=== PATIENT | female | born 1990 | race Caucasian/White ===

== ENCOUNTER 2024-01-09 15:03 | Emergency (ER) | payer OTHER ==
--- NOTE | 2024-01-09 15:16 | ED ---
General Adult HPI - General Chief complaint: Psychiatric Symptoms Stated complaint: Mental Health Time Seen by Provider: 01/09/24 15:08 Source: patient, EMS, RN notes reviewed Mode of arrival: EMS Limitations: no limitations - History of Present Illness Initial comments: Patient is a pleasant 33-year-old female present to the emergency department with depression and suicidal thoughts. Patient was trying to wean off Zyprexa over the past 2 weeks. Patient has become more depressed. Patient has had suicidal thoughts with plan. No homicidal thoughts. No hallucinations. No new physical complaints. No alcohol or street drug use. Patient has not been eating or drinking well. Patient does not sleep as well as normal. - Related Data Home Medications Medication Instructions Recorded Confirmed Levonorgestrel-Ethinyl Estradiol 1 tab PO DAILY 01/09/24 01/09/24 (Sronyx) 0.1-20mg-Mcg Tabs Omeprazole 20 mg PO DAILY 01/09/24 01/09/24 Allergies Allergy/AdvReac Type Severity Reaction Status Date / Time No Known Allergies Allergy Verified 01/09/24 20:51 Review of Systems ROS Statement: Those systems with pertinent positive or pertinent negative responses have been documented in the HPI. ROS Other: All systems not noted in ROS Statement are negative. Constitutional: Denies: fever Eyes: Denies: eye pain ENT: Denies: ear pain Respiratory: Denies: cough, dyspnea Psychiatric: Reports: as per HPI, depression, suicidal thoughts Past Medical History Past Medical History: No Reported History History of Any Multi-Drug Resistant Organisms: None Reported Past Surgical History: No Surgical Hx Reported Past Psychological History: Anxiety, Depression Smoking Status: Current every day smoker Past Alcohol Use History: Rare Past Drug Use History: Marijuana General Exam Limitations: no limitations General appearance: alert, in no apparent distress, other (Tearful) Head exam: Present: normocephalic Eye exam: Present: normal appearance Neck exam: Present: normal inspection Respiratory exam: Present: normal lung sounds bilaterally Cardiovascular Exam: Present: regular rate, normal rhythm GI/Abdominal exam: Present: soft. Absent: tenderness Extremities exam: Present: normal inspection Neurological exam: Present: alert Psychiatric exam: Present: depressed Skin exam: Present: normal color Course Vital Signs 01/09/24 01/09/24 01/10/24 15:05 21:23 01:03 Temperature 98.2 F 98.1 F 98.1 F Pulse Rate 78 79 76 Respiratory 17 16 17 Rate Blood Pressure 111/73 123/73 117/70 O2 Sat by Pulse 99 99 99 Oximetry Medical Decision Making - Medical Decision Making Was pt. sent in by a medical professional or institution (, CADE, BATCH TANK CONTROLLER, urgent care, hospital, or [facility]...) When possible be specific @ -No Did you speak to anyone other than the patient for history (EMS, parent, family, police, friend...)? What history was obtained from this source @ -No Did you review nursing and triage notes (agree or disagree)? Why? @ -I reviewed and agree with nursing and triage notes Were old charts reviewed (outside hosp., previous admission, EMS record, old EKG, old radiological studies, urgent care reports/EKG's, [facility] records)? Report findings @ -No old charts were reviewed Differential Diagnosis (chest pain, altered mental status, abdominal pain women, abdominal pain men, vaginal bleeding, weakness, fever, dyspnea, syncope, headache, dizziness, GI bleed, back pain, seizure, CVA, palpatations, mental health, musculoskeletal)? @ -Differential Mental Health Depression, anxiety, bipolar, psychosis, schizophrenia, borderline personality, situational depression, adjustment disorder, behavioral disorder, brain tumor, malingering, substance abuse, encephalopathy, medication reaction, dementia, hypothyroidism, degenerative neurologic disorder, lupus.... This is not meant to be all-inclusive list EKG interpreted by me (3pts min.). @ -As above X-rays interpreted by me (1pt min.). @ -None done CT interpreted by me (1pt min.). @ -None done U/S interpreted by me (1pt. min.). @ -None done What testing was considered but not performed or refused? (CT, X-rays, U/S, labs)? Why? @ -None What meds were considered but not given or refused? Why? @ -None Did you discuss the management of the patient with other professionals (clifford guzmán i.e. CADE Guillen, BATCH TANK CONTROLLER, lab, RT, psych nurse, social staff worker, armored car guard, teacher, alumni relations officer, case consultant)? Give summary @ -Psychiatric nurse who evaluated the patient and set up transfer Was smoking cessation discussed for >3mins.? @ -No Was critical care preformed (if so, how long)? @ -No Were there social determinants of health that impacted care today? How? (Homelessness, low income, unemployed, alcoholism, drug addiction, transportation, low edu. Level, literacy, decrease access to med. care, care home, rehab)? @ -No Was there de-escalation of care discussed even if they declined (Discuss DNR or withdrawal of care, Hospice)? DNR status @ -No What co-morbidities impacted this encounter? (DM, HTN, Smoking, COPD, CAD, Cancer, CVA, ARF, Chemo, Hep., AIDS, mental health diagnosis, sleep apnea, morbid obesity)? @ -None Was patient admitted / discharged? Hospital course, mention meds given and route, prescriptions, significant lab abnormalities, going to OR and other pertinent info. @ -Patient seen by mental health services who transferred patient for mental health care Undiagnosed new problem with uncertain prognosis? @ -No Drug Therapy requiring intensive monitoring for toxicity (Heparin, Nitro, Insulin, Cardizem)? @ -No Were any procedures done? @ -No Diagnosis/symptom? @ -Depression Acute, or Chronic, or Acute on Chronic? @ -Acute Uncomplicated (without systemic symptoms) or Complicated (systemic symptoms)? @ -Default Side effects of treatment? @ -No Exacerbation, Progression, or Severe Exacerbation? @ -No Poses a threat to life or bodily function? How? (Chest pain, USA, MS, pneumonia, PE, COPD, DKA, ARF, appy, cholecystitis, CVA, Diverticulitis, Homicidal, S uicidal, threat to staff... and all critical care pts) @ -No - Lab Data Result diagrams: 01/09/24 18:21 01/09/24 18:21 Lab Results 01/09/24 01/09/24 01/09/24 Range/Units 17:44 17:52 17:52 WBC (3.8-10.6) k/uL RBC (3.80-5.40) m/uL Hgb (11.4-16.0) gm/dL Hct (34.0-46.0) % MCV (80.0-100.0) fL MCH (25.0-35.0) pg MCHC (31.0-37.0) g/dL RDW (11.5-15.5) % Plt Count (150-450) k/uL MPV Sodium (137-145) mmol/L Potassium (3.5-5.1) mmol/L Chloride (98-107) mmol/L Carbon Dioxide (22-30) mmol/L Anion Gap mmol/L BUN (7-17) mg/dL Creatinine (0.52-1.04) mg/dL Est GFR (CKD-EPI)AfAm (>60 ml/min/1.73 sqM) Est GFR (CKD-EPI)NonAf (>60 ml/min/1.73 sqM) Glucose (74-99) mg/dL Calcium (8.4-10.2) mg/dL Total Bilirubin (0.2-1.3) mg/dL AST (14-36) U/L ALT (4-34) U/L Alkaline Phosphatase (38-126) U/L Total Protein (6.3-8.2) g/dL Albumin (3.5-5.0) g/dL Urine Color Yellow Urine Appearance Clear (Clear) Urine pH 7.0 (5.0-8.0) Ur Specific Deville 1.018 (1.001-1.035) Urine Protein Negative (Negative) Urine Glucose (UA) Negative (Negative) Urine Ketones Negative (Negative) Urine Blood Negative (Negative) Urine Nitrite Negative (Negative) Urine Bilirubin Negative (Negative) Urine Urobilinogen <2.0 (<2.0) mg/dL Ur Leukocyte Esterase Negative (Negative) Urine HCG, Qual Not Detected (Not Detectd) Urine Opiates Screen Not Detected (NotDetected) Ur Oxycodone Screen Not Detected (NotDetected) Urine Methadone Screen Not Detected (NotDetected) Ur Barbiturates Screen Not Detected (NotDetected) U Tricyclic Antidepress Not Detected (NotDetected) Ur Phencyclidine Scrn Not Detected (NotDetected) Ur Amphetamines Screen Not Detected (NotDetected) U Methamphetamines Scrn Not Detected (NotDetected) U Benzodiazepines Scrn Not Detected (NotDetected) Urine Cocaine Screen Not Detected (NotDetected) U Marijuana (THC) Screen Detected H (NotDetected) SARS-CoV-2 (PCR) (Not Detectd) 01/09/24 01/09/24 01/09/24 Range/Units 18:21 18:21 18:23 WBC 12.5 H (3.8-10.6) k/uL RBC 4.49 (3.80-5.40) m/uL Hgb 13.9 (11.4-16.0) gm/dL Hct 41.7 (34.0-46.0) % MCV 92.9 (80.0-100.0) fL MCH 30.8 (25.0-35.0) pg MCHC 33.2 (31.0-37.0) g/dL RDW 12.6 (11.5-15.5) % Plt Count 211 (150-450) k/uL MPV 8.0 Sodium 143 (137-145) mmol/L Potassium 3.4 L (3.5-5.1) mmol/L Chloride 113 H (98-107) mmol/L Carbon Dioxide 24 (22-30) mmol/L Anion Gap 6 mmol/L BUN 13 (7-17) mg/dL Creatinine 0.59 (0.52-1.04) mg/dL Est GFR (CKD-EPI)AfAm >90 (>60 ml/min/1.73 sqM) Est GFR (CKD-EPI)NonAf >90 (>60 ml/min/1.73 sqM) Glucose 113 H (74-99) mg/dL Calcium 9.2 (8.4-10.2) mg/dL Total Bilirubin 0.3 (0.2-1.3) mg/dL AST 25 (14-36) U/L ALT 20 (4-34) U/L Alkaline Phosphatase 59 (38-126) U/L Total Protein 6.9 (6.3-8.2) g/dL Albumin 4.1 (3.5-5.0) g/dL Urine Color Urine Appearance (Clear) Urine pH (5.0-8.0) Ur Specific Deville (1.001-1.035) Urine Protein (Negative) Urine Glucose (UA) (Negative) Urine Ketones (Negative) Urine Blood (Negative) Urine Nitrite (Negative) Urine Bilirubin (Negative) Urine Urobilinogen (<2.0) mg/dL Ur Leukocyte Esterase (Negative) Urine HCG, Qual (Not Detectd) Urine Opiates Screen (NotDetected) Ur Oxycodone Screen (NotDetected) Urine Methadone Screen (NotDetected) Ur Barbiturates Screen (NotDetected) U Tricyclic Antidepress (NotDetected) Ur Phencyclidine Scrn (NotDetected) Ur Amphetamines Screen (NotDetected) U Methamphetamines Scrn (NotDetected) U Benzodiazepines Scrn (NotDetected) Urine Cocaine Screen (NotDetected) U Marijuana (THC) Screen (NotDetected) SARS-CoV-2 (PCR) Not Detected (Not Detectd) Disposition Clinical Impression: Depression Disposition: TRANSFER TO PSYCH HOSP/UNIT Is patient prescribed a controlled substance at d/c from ED?: No Referrals: León Drummond MD [Primary Care Provider] - 1-2 days
[2024-01-09] MEDS: LORazepam 1 MG TAB PO STA ×2 (17:51→23:09)
[2024-01-09 18:24] LABS: Appearance,Urine Clear (Clear); Bilirubin,Urine Negative (Negative); Blood,Urine Negative (Negative); Color,Urine Yellow; Glucose,Urine (UA) Negative (Negative); Ketones,Urine Negative (Negative); Leukocyte Esterase,Urine Negative (Negative); Nitrite,Urine Negative (Negative); Protein,Urine Negative (Negative); Specific Gravity,Urine 1.018 (1.001-1.035); Urobilinogen,Urine <2.0 mg/dL (<2.0)
[2024-01-09 18:33] LABS: HCT 41.7 % (34.0-46.0); HGB 13.9 gm/dL (11.4-16.0); MCH 30.8 pg (25.0-35.0); MCHC 33.2 g/dL (31.0-37.0); MCV 92.9 fL (80.0-100.0); Platelet Count 211 k/uL (150-450); RBC 4.49 m/uL (3.80-5.40); RDW 12.6 % (11.5-15.5); WBC 12.5 k/uL (3.8-10.6)
[2024-01-09 18:33] LABS: Amphetamine Screen,Urine Not Detected (NotDetected); Barbiturate Screen,Urine Not Detected (NotDetected); Benzodiazepines Screen,Urine Not Detected (NotDetected); Cocaine Screen,Urine Not Detected (NotDetected); Methadone Screen, Urine Not Detected (NotDetected); Opiate Screen,Urine Not Detected (NotDetected); Oxycodone Screen, Urine Not Detected (NotDetected); Phencyclidine Screen,Urine Not Detected (NotDetected); Tricyclic Antidepressant,Urine Not Detected (NotDetected); Urn Cannabinoid Scrn Detected (NotDetected)
[2024-01-09 18:43] LABS: ALT 20 U/L (4-34); AST 25 U/L (14-36); African American GFR (CKD) >90 (>60 ml/min/1.73 sqM); Albumin 4.1 g/dL (3.5-5.0); Alkaline Phosphatase 59 U/L (38-126); Anion Gap 6 mmol/L; Blood Urea Nitrogen 13 mg/dL (7-17); Calcium 9.2 mg/dL (8.4-10.2); Carbon Dioxide 24 mmol/L (22-30); Chloride 113 mmol/L (98-107); Glucose 113 mg/dL (74-99); Non-African American GFR(CKD) >90 (>60 ml/min/1.73 sqM); Potassium 3.4 mmol/L (3.5-5.1); Sodium 143 mmol/L (137-145); Total Bilirubin 0.3 mg/dL (0.2-1.3); Total Protein 6.9 g/dL (6.3-8.2)
[2024-01-09 21:34] VITALS: TEMP 98.1
[2024-01-10 01:21] VITALS: BP 117/70; PULSE 76; RESP 17
== END 2024-01-10 01:04 ==
LOC: EC 15:03
DX: F32.A Depression, unspecified (principal); F17.200 Nicotine dependence, unspecified, uncomplicated; F12.90 Cannabis use, unspecified, uncomplicated; Z20.822 Contact with and (suspected) exposure to COVID-19
CPT/HCPCS: 36415; 80053; 80306; 81003; 81025; 82075; 85027; 87635; 99285

== ENCOUNTER 2024-02-01 15:22 | Inpatient (IN) | payer MEDICAID, OTHER ==
--- NOTE | 2024-02-01 15:50 | ED ---
General Adult HPI - General Chief complaint: Psychiatric Symptoms Stated complaint: mental health Time Seen by Provider: 02/01/24 15:34 Source: patient, EMS, RN notes reviewed Mode of arrival: EMS Limitations: no limitations - History of Present Illness Initial comments: Patient is a pleasant 33-year-old female presenting to the emergency department with depression and suicidal thoughts. Patient states she was discharged from the hospital couple weeks ago. Patient states her symptoms are not gotten better only worse. Patient states she is actually taking her medications. No homicidal thoughts. Patient does have plans of hanging herself or putting her head in the deep fryer at work. Patient was advised not to do this. No alcohol or street drug use. No new physical complaints. - Related Data Home Medications Medication Instructions Recorded Confirmed Levonorgestrel-Ethinyl Estradiol 1 tab PO DAILY 01/09/24 02/01/24 (Sronyx) 0.1-20mg-Mcg Tabs Omeprazole 20 mg PO DAILY 01/09/24 02/01/24 Lurasidone [Latuda] 40 mg PO W/SUPPER 02/01/24 02/01/24 Sertraline [Zoloft] 100 mg PO DAILY 02/01/24 02/01/24 hydrOXYzine pamoate [Vistaril] 50 mg PO QID PRN 02/01/24 02/01/24 traZODone HCL [Desyrel] 50 mg PO HS PRN 02/01/24 02/01/24 Allergies Allergy/AdvReac Type Severity Reaction Status Date / Time No Known Allergies Allergy Verified 02/01/24 17:54 Review of Systems ROS Statement: Those systems with pertinent positive or pertinent negative responses have been documented in the HPI. ROS Other: All systems not noted in ROS Statement are negative. Constitutional: Denies: fever Eyes: Denies: eye pain ENT: Denies: ear pain Respiratory: Denies: cough Cardiovascular: Denies: chest pain Psychiatric: Reports: anxiety, depression, suicidal thoughts Past Medical History Past Medical History: No Reported History History of Any Multi-Drug Resistant Organisms: None Reported Past Surgical History: No Surgical Hx Reported Past Psychological History: Anxiety, Depression Smoking Status: Current every day smoker Past Alcohol Use History: Rare Past Drug Use History: Marijuana General Exam Limitations: no limitations General appearance: alert, in no apparent distress Head exam: Present: normocephalic Eye exam: Present: normal appearance Neck exam: Present: normal inspection Respiratory exam: Present: normal lung sounds bilaterally Cardiovascular Exam: Present: regular rate, normal rhythm GI/Abdominal exam: Present: soft. Absent: tenderness Extremities exam: Present: normal inspection Neurological exam: Present: alert Psychiatric exam: Present: depressed Skin exam: Present: normal color Course Vital Signs 02/01/24 15:27 Temperature 98 F Pulse Rate 77 Respiratory 18 Rate Blood Pressure 105/98 O2 Sat by Pulse 97 Oximetry Medical Decision Making - Medical Decision Making Was pt. sent in by a medical professional or institution (, PA, SURFACING MACHINE OPERATOR, urgent care, hospital, or shelter...) When possible be specific @ -No Did you speak to anyone other than the patient for history (EMS, parent, family, police, friend...)? What history was obtained from this source @ -No Did you review nursing and triage notes (agree or disagree)? Why? @ -I reviewed and agree with nursing and triage notes Were old charts reviewed (outside hosp., previous admission, EMS record, old EKG, old radiological studies, urgent care reports/EKG's, shelter records)? Report findings @ -No old charts were reviewed Differential Diagnosis (chest pain, altered mental status, abdominal pain women, abdominal pain men, vaginal bleeding, weakness, fever, dyspnea, syncope, headache, dizziness, GI bleed, back pain, seizure, CVA, palpatations, mental health, musculoskeletal)? @ -Differential Mental Health Depression, anxiety, bipolar, psychosis, schizophrenia, borderline personality, situational depression, adjustment disorder, behavioral disorder, brain tumor, malingering, substance abuse, encephalopathy, medication reaction, dementia, hypothyroidism, degenerative neurologic disorder, lupus.... This is not meant to be all-inclusive list EKG interpreted by me (3pts min.). @ -As above X-rays interpreted by me (1pt min.). @ -None done CT interpreted by me (1pt min.). @ -None done U/S interpreted by me (1pt. min.). @ -None done What testing was considered but not performed or refused? (CT, X-rays, U/S, labs)? Why? @ -None What meds were considered but not given or refused? Why? @ -None Did you discuss the management of the patient with other professionals (professionals i.e. , PA, SURFACING MACHINE OPERATOR, lab, RT, psych nurse, 7th grade social studies teacher, porcelain enameler, teacher, program officer, hospice case manager)? Give summary @ -Case discussed with psychiatric nurse with plans for admission Was smoking cessation discussed for >3mins.? @ -No Was critical care preformed (if so, how long)? @ -No Were there social determinants of health that impacted care today? How? (Homelessness, low income, unemployed, alcoholism, drug addiction, transportation, low edu. Level, literacy, decrease access to med. care, [facility], rehab)? @ -No Was there de-escalation of care discussed even if they declined (Discuss DNR or withdrawal of care, Hospice)? DNR status @ -No What co-morbidities impacted this encounter? (DM, HTN, Smoking, COPD, CAD, Cancer, CVA, ARF, Chemo, Hep., AIDS, mental health diagnosis, sleep apnea, morbid obesity)? @ -None Was patient admitted / discharged? Hospital course, mention meds given and route, prescriptions, significant lab abnormalities, going to OR and other pertinent info. @ -Patient presents with depression and suicidal ideation with plan. Patient will be admitted for mental health care. Undiagnosed new problem with uncertain prognosis? @ -No Drug Therapy requiring intensive monitoring for toxicity (Heparin, Nitro, Insulin, Cardizem)? @ -No Were any procedures done? @ -No Diagnosis/symptom? @ -Depression, suicidal ideation Acute, or Chronic, or Acute on Chronic? @ -Acute on chronic, acute Uncomplicated (without systemic symptoms) or Complicated (systemic symptoms)? @ -Default Side effects of treatment? @ -No Exacerbation, Progression, or Severe Exacerbation? @ -No Poses a threat to life or bodily function? How? (Chest pain, USA, NC, pneumonia, PE, COPD, DKA, ARF, appy, cholecystitis, CVA, Diverticulitis, Homicidal, Suicidal, threat to staff... and all critical care pts) @ -Potential threat of suicide to life - Lab Data Lab Results 02/01/24 Range/Units 19:29 Urine Opiates Screen Not Detected (NotDetected) Ur Oxycodone Screen Not Detected (NotDetected) Urine Methadone Screen Not Detected (NotDetected) Ur Barbiturates Screen Not Detected (NotDetected) U Tricyclic Antidepress Not Detected (NotDetected) Ur Phencyclidine Scrn Not Detected (NotDetected) Ur Amphetamines Screen Not Detected (NotDetected) U Methamphetamines Scrn Not Detected (NotDetected) U Benzodiazepines Scrn Not Detected (NotDetected) Urine Cocaine Screen Not Detected (NotDetected) U Marijuana (THC) Screen Detected H (NotDetected) Disposition Clinical Impression: Depression, Suicidal ideation Disposition: TRANSFER TO PSYCH HOSP/UNIT Is patient prescribed a controlled substance at d/c from ED?: No Referrals: León Drummond MD [Primary Care Provider] - 1-2 days Time of Disposition: 21:09
[2024-02-01 19:56] LABS: Amphetamine Screen,Urine Not Detected (NotDetected); Barbiturate Screen,Urine Not Detected (NotDetected); Benzodiazepines Screen,Urine Not Detected (NotDetected); Cocaine Screen,Urine Not Detected (NotDetected); Methadone Screen, Urine Not Detected (NotDetected); Opiate Screen,Urine Not Detected (NotDetected); Oxycodone Screen, Urine Not Detected (NotDetected); Phencyclidine Screen,Urine Not Detected (NotDetected); Tricyclic Antidepressant,Urine Not Detected (NotDetected); Urn Cannabinoid Scrn Detected (NotDetected)
[2024-02-02] MEDS ORDERED: hydrOXYzine pamoate 25 MG CAP PO PRN (00:08)
[2024-02-02] MEDS ORDERED: IBUPROFEN 600 MG TAB PO PRN (00:09)
[2024-02-02] MEDS ORDERED: ACETAMINOPHEN TAB 325 MG TAB PO PRN (00:09)
[2024-02-02] MEDS ORDERED: LORazepam 2 MG/ML INJ IM PRN (00:09)
[2024-02-02] MEDS ORDERED: haloperidoL 5 MG TAB PO PRN (00:09)
[2024-02-02] MEDS ORDERED: HALOPERIDOL LACTATE 5 MG/ML 1 ML VIAL IM PRN (00:09)
[2024-02-02] MEDS ORDERED: MAG HYDROX/AL HYDROX/SIMETH 355 ML BOTTLE PO PRN (00:09)
[2024-02-02] MEDS ORDERED: MAGNESIUM HYDROXIDE 2,400 MG/30 ML CUP PO PRN (00:09)
[2024-02-02] MEDS ORDERED: traZODone HCL 100 MG TAB PO PRN (00:22)
[2024-02-02] MEDS: LORazepam 1 MG TAB PO PRN (00:37)
[2024-02-02] MEDS: NICOTINE 14MG/24HR PATCH TRANSDERM SCH (09:13)
[2024-02-02] MEDS: PANTOPRAZOLE 40 MG TABLET PO SCH (09:14)
[2024-02-02] MEDS: SERTRALINE 100 MG TAB PO SCH (09:14)
[2024-02-02] MEDS: LEVONORGESTREL ETHINYL ESTRADIOL PO SCH (09:14)
--- NOTE | 2024-02-02 10:21 | P.HP ---
Psychiatric H&P - . H&P Date: 02/02/24 History & Physical: Allergies Allergy/AdvReac Type Severity Reaction Status Date / Time No Known Allergies Allergy Verified 02/01/24 17:54 Vital Signs Temp 97.6 F 02/02/24 01:04 Pulse 78 02/02/24 01:04 Resp 18 02/02/24 01:04 BP 135/75 02/02/24 01:04 Pulse Ox 99 02/02/24 01:04 FiO2 Intake & Output 02/01/24 02/02/24 02/02/24 18:59 06:59 18:59 Weight 86.183 kg 86.3 kg Laboratory Last Values Urine Opiates Screen Not Detected (NotDetected) 02/01/24 19:29 Ur Oxycodone Screen Not Detected (NotDetected) 02/01/24 19:29 Urine Methadone Screen Not Detected (NotDetected) 02/01/24 19:29 Ur Barbiturates Screen Not Detected (NotDetected) 02/01/24 19:29 U Tricyclic Antidepress Not Detected (NotDetected) 02/01/24 19:29 Ur Phencyclidine Scrn Not Detected (NotDetected) 02/01/24 19:29 Ur Amphetamines Screen Not Detected (NotDetected) 02/01/24 19:29 U Methamphetamines Scrn Not Detected (NotDetected) 02/01/24 19:29 U Benzodiazepines Scrn Not Detected (NotDetected) 02/01/24 19:29 Urine Cocaine Screen Not Detected (NotDetected) 02/01/24 19:29 U Marijuana (THC) Screen Detected (NotDetected) H 02/01/24 19:29 SARS-CoV-2 (PCR) Not Detected (Not Detectd) 02/01/24 21:45 02/02/24 07:11 IDENTIFYING DATA: Patient is a 33-year-old female. Lives in an apartment with her significant other. no children. Employed at [employer]. HPI: Patient presented to the hospital on 01/31. As per EPS note, "pt presents with tearful affect and had initially answered most questions with "I don't know" or "I don't remember" when investigative writer attempted assessment before this point. Escape Wheel Tooth Cutter then was able to complete assessment upon returning to room. However, pt continues to answer questions minimally and gives very brief answers. pt tearful throughout assessment. When asked what brought her to the ER, pt states, "suicidal thoughts." Escape Wheel Tooth Cutter attempted to obtain further information regarding length of time pt has been experiencing SI as well as if thoughts were becoming more frequent, more intrusive, lasting longer and pt states, "I don't know" before beginning to cry again. pt continues to report SI with plan to hang herself or put her head into a deep fryer at her job at [employer]. pt is unable to recall a specific stressor that caused worsening of symptoms. pt denies HI and hallucinations. pt reports poor sleep, but states that she is unsure if this is because she has problems falling asleep, staying asleep, or both. pt unable to verbalize estimated average sleep she's been getting and instead begins to cry again. pt reports that she has had decreased appetite, but is unable to provide further information as to how often she has been eating, how much she has been eating, or how long she has not had an appetite. pt attempted to cooperate with assessment." Upon todays assessment, patient states she has been having suicidal thoughts for months now. She states she is anxious. Patient cannot pin point any stressors, only that she is just really sad. patient was very tearful, sobbing during the interview. States she does not want to work anymore, and she finds it difficult to do with her mental state. States she has been dealing with depression for her whole life. States she is still having suicidal thoughts, however, is not going to do anything while in the hospital. She states her sleep is not great, and she wakes up alot during the night. not reporting any significant stressors. Her appetite is poor. Patient denies any homicidal ideations intent or plan. At this time patient denies any auditory or visual hallucinations. Patient denies any flight of ideas racing thoughts. Patient denies using recreational drugs. patient's UDS was positive for marijuana. Patient admits to smoking cigarettes. PAST PSYCHIATRIC HISTORY: Patient states that she was admitted to [facility], and discharged a couple weeks ago. Latuda, Zoloft, Trazodone, and Visteral were prescribed to her upon discharge. Denies outpatient followup. Was supposed to do [employer], but has not connected with them yet. denies any previous suicide attempt. PMH:As per ER note ALLERGIES: as per EMR CHEMICAL DEPENDENCY HISTORY: as per HPI FAMILY PSYCHIATRIC/SUBSTANCE USE HISTORY: both parents completed suicide. SOCIAL HISTORY: Patient was born and raised in [place], [place]. Father completed suicide when patient was 6, mother completed suicide last year. Patient is employed, no children, has a significant other. Works at [employer]. Denies legal problems. MENTAL STATUS EXAM: General Appearance: Patient appears to be stated age, is alert, directable, and attempts to cooperate. Patient appears to have fair hygiene and grooming. Visibly sad. Behavior: Patient is seated without any agitated behavior. Very Tearful. Sad Speech: Patient's speech is fluent and nonpressured. soft tone Mood/Affect: Patient reports their mood is depressed, affect is congruent and constricted. Very sad Suicidality/Homicidality: Patient denies having any homicidal ideation intent or plan. Endorses suicidal ideations, no intent or plan Perceptions: Patient denies any visual hallucinations and denies any auditory hallucinations Though content/process: There is no evidence of any delusional thought content and thought process is linear and goal-directed. concrete, vague. Memory and concentration: AOX3, grossly intact for the purposes of this session. Can spell "WORLD" backwards Judgment and insight: poor STRENGTHS/WEAKNESSES: strength is that patient is resilient. Weakness is that patient has poor judgment and is impulsive INTELLECT: average IMPRESSIONS: major depressive disorder, severe, recurrent, without psychotic features nicotine dependance cannabis use disorder PLAN: -Patient is admitted under voluntary status to [facility] for stabilization of psychiatric symptoms and safety. Patient has signed adult voluntary form and medication consent and is placed in patient's chart. -Medications : Will start patient on Trazodone 50mg qhs for sleep Abilify 5mg po daily for mood adjunct Zoloft 150mg daily for mood/anxiety Visteral 50mg qid prn for anxiety -Ativan and Haldol PRN for agitation/aggression -Patient was counselled on substance abuse and desired to cut back on use -Patient was informed of the risks, benefits and side effects of the medication and patient verbally consented to taking the medications. -Internal Medicine consult to perform medical evaluation and physical. -NRT - nicotine patch -SW on board for discharge planning. Encourage patient to participate in groups to work on coping skills. 02/02/24 07:16 02/02/24 09:56 02/02/24 10:18
[2024-02-02] MEDS: SERTRALINE 50 MG TAB PO STA (10:24)
[2024-02-02] MEDS: ARIPiprazole 5 MG TAB PO SCH (10:24)
[2024-02-02] MEDS ORDERED: LURASIDONE 40 MG TAB PO SCH (17:30)
[2024-02-02] MEDS: traZODone HCL 50 MG TAB PO SCH (21:09)
[2024-02-03 08:11] LABS: Basophils % (A) 1 %; Eosinophils # (A) 0.3 k/uL (0-0.7); Eosinophils % (A) 4 %; HCT 45.8 % (34.0-46.0); HGB 14.6 gm/dL (11.4-16.0); Lymphocytes # (A) 2.8 k/uL (1.0-4.8); Lymphocytes % (A) 38 %; MCH 29.6 pg (25.0-35.0); MCHC 31.9 g/dL (31.0-37.0); MCV 92.9 fL (80.0-100.0); Mean Platelet Volume 8.2; Monocytes # (A) 0.5 k/uL (0-1.0); Monocytes % (A) 7 %; Neutrophils # (A) 3.5 k/uL (1.3-7.7); Neutrophils % (A) 48 %; Platelet Count 233 k/uL (150-450); RBC 4.93 m/uL (3.80-5.40); RDW 12.8 % (11.5-15.5); WBC 7.4 k/uL (3.8-10.6)
[2024-02-03] MEDS: SERTRALINE 100 MG TAB PO SCH (08:11)
[2024-02-03 08:28] LABS: ALT 12 U/L (4-34); AST 19 U/L (14-36); African American GFR (CKD) >90 (>60 ml/min/1.73 sqM); Alkaline Phosphatase 70 U/L (38-126); Anion Gap 8 mmol/L; Blood Urea Nitrogen 13 mg/dL (7-17); Calcium 9.4 mg/dL (8.4-10.2); Carbon Dioxide 23 mmol/L (22-30); Chloride 112 mmol/L (98-107); Glucose 102 mg/dL (74-99); Non-African American GFR(CKD) >90 (>60 ml/min/1.73 sqM); Potassium 3.7 mmol/L (3.5-5.1); Sodium 143 mmol/L (137-145); Total Bilirubin 0.2 mg/dL (0.2-1.3); Total Protein 6.9 g/dL (6.3-8.2)
[2024-02-03] MEDS: LEVONORGESTREL ETHINYL ESTRADIOL PO SCH (09:19)
[2024-02-03 15:37] LABS: Chol/HDL Ratio 4.39 Ratio; LDL Cholesterol,Calculated 150.9 mg/dL (0.0-131.0)
[2024-02-03 18:02] LABS: Appearance,Urine Cloudy (Clear); Bacteria,Urine Many /hpf; Bilirubin,Urine Negative (Negative); Blood,Urine Negative (Negative); Calcium Oxalate Crystals,Urine Occasional /hpf; Color,Urine Yellow; Glucose,Urine (UA) Negative (Negative); Ketones,Urine Trace (Negative); Leukocyte Esterase,Urine Negative (Negative); Mucus,Urine Many /hpf; Nitrite,Urine Negative (Negative); PH, Urine 6.5 (5.0-8.0); Protein,Urine 1+ (Negative); RBC,Urine 2 /hpf (0-5); Specific Gravity,Urine 1.033 (1.001-1.035); Squamous Epithelial Cell,Urine 2 /hpf (0-4); Urobilinogen,Urine <2.0 mg/dL (<2.0); WBC,Urine 5 /hpf (0-5)
--- NOTE | 2024-02-03 20:27 | P.PN ---
Subjective Progress Note Date: 02/03/24 Subject: patient was seen chart was reviewed in case discussed with the nursing staff patient mostly gives monosyllabic responses patient stated is been her second or third day she said that she was hospitalized with suicidal ideations she denies any specific stressors she said that she lives with her boyfriend she said that she has a family history of for depression she denies any other specific stressors for her current suicidal thoughts or attempts she states that she has no intention of harming herself was you the hospital and that she would like to get some help she denies any alcohol or substance use it was very difficult to get any further information out of the patient MENTAL STATUS EXAM: General Appearance: Patient appears to be stated age, is alert, directable, and attempts to cooperate. Patient appears to have fair hygiene and grooming. Visibly sad. Behavior: Patient is seated without any agitated behavior. Flat affect flat affect Speech: Patient's speech is fluent and nonpressured. soft tone Mood/Affect: Patient reports their mood is depressed, affect is congruent and co nstricted. Very sad Suicidality/Homicidality: Patient denies having any homicidal ideation intent o r plan. Endorses suicidal ideations, no intent or plan Perceptions: Patient denies any visual hallucinations and denies any auditory hallucinations Though content/process: There is no evidence of any delusional thought content and thought process is linear and goal-directed. concrete, vague. Memory and concentration: AOX3, grossly intact for the purposes of this session. Can spell "WORLD" backwards Judgment and insight: poor STRENGTHS/WEAKNESSES: strength is that patient is resilient. Weakness is that patient has poor judgment and is impulsive INTELLECT: average IMPRESSIONS: r/o Schizoaffective disorder major depressive disorder, severe, recurrent, without psychotic features nicotine dependance cannabis use disorder PLAN: -Patient is admitted under voluntary status to [facility] for stabilization of psychiatric symptoms and safety. Patient has signed adult voluntary form and medication consent and is placed in patient's chart. -Medications : Will start patient on Trazodone 50mg qhs for sleep Abilify 5mg po daily for mood adjunct Zoloft 150mg daily for mood/anxiety Visteral 50mg qid prn for anxiety -Ativan and Haldol PRN for agitation/aggression -Patient was counselled on substance abuse and desired to cut back on use -Patient was informed of the risks, benefits and side effects of the medication and patient verbally consented to taking the medications. -Internal Medicine consult to perform medical evaluation and physical. -NRT - nicotine patch -SW on board for discharge planning. Encourage patient to participate in groups to work on coping skills. 02/03/24 07:16 Objective - Vital Signs Vital signs: Vital Signs Temp 98.2 F 02/03/24 07:02 Pulse 69 02/03/24 07:02 Resp 16 02/03/24 07:02 BP 101/56 02/03/24 07:02 Pulse Ox 99 02/03/24 07:02 FiO2 - Labs CBC & Chem 7: 02/03/24 07:43 02/03/24 07:43 Labs: Abnormal Lab Results - Last 24 Hours (Table) 02/03/24 02/03/24 Range/Units 07:43 17:40 Chloride 112 H (98-107) mmol/L Glucose 102 H (74-99) mg/dL Triglycerides 157.00 H (0.00-149.00) mg/dL Cholesterol 236.00 H (0.00-200.00) mg/dL LDL Cholesterol, Calc 150.9 H (0.0-131.0) mg/dL TSH 0.400 L (0.465-4.680) mIU/L Urine Appearance Cloudy H (Clear) Urine Protein 1+ H (Negative) Urine Ketones Trace H (Negative) Calcium Oxalate Crystal Occasional H (None) /hpf Urine Bacteria Many H (None) /hpf Urine Mucus Many H (None) /hpf
[2024-02-04 00:34] LABS: T4, Free (Free Thyroxine) 1.35 ng/dL (0.80-1.80)
[2024-02-04] MEDS: SERTRALINE 50 MG TAB PO STA (10:47)
--- NOTE | 2024-02-04 10:59 | P.PN ---
Progress Note - Text Progress Note Date: 02/04/24 Interval History: Patient was seen in her room and was directable and agreeable to speak with wr iter at the bedside. Patient states that she is still feeling very sad and anxious. Patient appears visibly sad, however, a bit better than Wednesday, not as tearful. Patient states she is still endorsing suicidal ideations, but claims she is not going to attempt to hurt herself on the unit. Patient states she is sleeping well, but has no appetite. At this time patient denies any homicidal ideations, intent or plan. Patient denies any auditory, visual hallucinations and denies any paranoia or delusions. Patient denies any side effects from the medications and has been compliant with meds. MENTAL STATUS EXAM: General Appearance: Patient appears to be stated age, is alert, directable, and attempts to cooperate. Patient appears to have fair hygiene and grooming. Visibly sad. Behavior: Patient is seated without any agitated behavior. Sad Speech: Patient's speech is fluent and nonpressured. soft tone Mood/Affect: Patient reports their mood is sad, affect is congruent and constricted. Very sad Suicidality/Homicidality: Patient denies having any homicidal ideation intent or plan. Endorses suicidal ideations, no intent or plan Perceptions: Patient denies any visual hallucinations and denies any auditory hallucinations Though content/process: There is no evidence of any delusional thought content and thought process is linear and goal-directed. concrete, vague. Memory and concentration: AOX3, grossly intact for the purposes of this session. Judgment and insight: poor IMPRESSIONS: major depressive disorder, severe, recurrent, without psychotic features nicotine dependance cannabis use disorder PLAN: -Patient is admitted under voluntary status to [facility] for stabilization of psychiatric symptoms and safety. Patient has signed adult voluntary form and medication consent and is placed in patient's chart. -Medications : Trazodone 50mg qhs for sleep increase Abilify 10mg po daily for mood adjunct, starting tomorrow, increase Zoloft 200mg daily for mood/anxiety Visteral 50mg qid prn for anxiety -Ativan and Haldol PRN for agitation/aggression -NRT - nicotine patch -SW on board for discharge planning. Encourage patient to participate in groups to work on coping skills. Possible discharge mid week, if patient improves
[2024-02-05] MEDS: SERTRALINE 100 MG TAB PO SCH (08:16)
[2024-02-05] MEDS: ARIPiprazole 10 MG TAB PO SCH (08:16)
[2024-02-05] MEDS ORDERED: traZODone HCL 50 MG TAB PO PRN (11:24)
--- NOTE | 2024-02-05 11:25 | P.PN ---
Progress Note - Text Progress Note Date: 02/05/24 Interval History: Patient was seen in her room and was directable and agreeable to speak with wr iter at the bedside. She was reading a book. She initially states that she is "okay "but admits on further discussion that she is feeling depressed. Patient appears visibly sad although not tearful. Patient denies suicidal ideation and stated that she last experienced passive SI yesterday. Patient reports having had some issue with sleep last night. She was agreeable with additional 50 mg trazodone when necessary for sleep. She was also encouraged to participate on the milieu today. At this time patient denies any homicidal ideation, intent or plan. Patient denies any auditory, visual hallucinations and denies any paranoia or delusions. Patient denies any side effects from the medications and has been compliant with meds. MENTAL STATUS EXAM: General Appearance: Patient appears to be stated age, is alert, directable, and attempts to cooperate. Patient appears to have fair hygiene and grooming. Behavior: Patient is seated without any agitated behavior. Speech: Patient's speech is fluent and nonpressured. soft tone Mood/Affect: Patient reports their mood is sad, affect is congruent and constricted. Very sad Suicidality/Homicidality: Patient denies having any homicidal ideation intent or plan. denies suicidal ideations, no intent or plan Perceptions: Patient denies any visual hallucinations and denies any auditory hallucinations Though content/process: There is no evidence of any delusional thought content and thought process is linear and goal-directed. Memory and concentration: AOX3, grossly intact for the purposes of this session. Judgment and insight: poor IMPRESSIONS: major depressive disorder, severe, recurrent, without psychotic features nicotine dependance cannabis use disorder PLAN: -Patient is admitted under voluntary status to [facility] for stabilization of psychiatric symptoms and safety. Patient has signed adult voluntary form and medication consent and is placed in patient's chart. -Medications : Trazodone 50mg qhs for sleep additional 50 mg qHS PRN for sleep Abilify 10mg po daily for mood adjunct, Zoloft 200mg daily for mood/anxiety, Vistaril 50mg qid prn for anxiety -Ativan and Haldol PRN for agitation/aggression -NRT - nicotine patch -SW on board for discharge planning. Encourage patient to participate in groups to work on coping skills. Possible discharge mid week, if patient improves
--- NOTE | 2024-02-06 10:26 | P.PN ---
Progress Note - Text Progress Note Date: 02/06/24 Interval History: Patient was seen in her room and was directable and agreeable to speak with wr iter at the bedside. she states that her mood has been "okay "but is noted to be tearful throughout conversation. Escorted patient to common room and discussed CBT with patient at length today including her fear of going anywhere outside of her comfort zone. She states that she does not drive due to fear and therefore generally stays at home. Patient has been isolating to her bed. As a result of this, she has not been able to sleep last night. She reports trouble with falling and staying asleep. She also states that she did not request the additional trazodone overnight for sleep. Indeed patient does not request PRN medications, including Vistaril. She endorses having low energy this morning. She reports fair appetite. Patient denies suicidal ideation yesterday and today but continues to be depressed and anxious. At this time patient denies any homicidal ideation, intent or plan. Patient denies any auditory, visual hallucinations and denies any paranoia or delusions. Patient denies any side effects from the medications and has been compliant with meds. MENTAL STATUS EXAM: General Appearance: Patient appears to be stated age, is alert, directable, and attempts to cooperate. Patient appears to have fair hygiene and grooming. Behavior: Patient is seated without any agitated behavior. Speech: Patient's speech is fluent and nonpressured. soft tone Mood/Affect: Patient reports their mood is "ok", affect is congruent and tearful Suicidality/Homicidality: Patient denies having any homicidal ideation intent or plan. denies suicidal ideations, no intent or plan Perceptions: Patient denies any visual hallucinations and denies any auditory hallucinations Though content/process: There is no evidence of any delusional thought content and thought process is linear and goal-directed. Memory and concentration: AOX3, grossly intact for the purposes of this session. Judgment and insight: poor IMPRESSIONS: Major depressive disorder, severe, recurrent, without psychotic features Generalized Anxiety Disorder nicotine dependance cannabis use disorder R/o agoraphobia PLAN: -Patient is admitted under voluntary status to [facility] for stabilization of psychiatric symptoms and safety. Patient has signed adult voluntary form and medication consent and is placed in patient's chart. -Medications : Increase Trazodone to 100 mg qHS for sleep. Discussed sleep hygiene Abilify 10mg po daily for mood adjunct, Zoloft 200mg daily for mood/anxiety, Vistaril 50mg qid prn for anxiety -Discussed and provided handout for CBT [facility] [employer] [facility] record - recommend working on this & doing outpatient therapy -Ativan and Haldol PRN for agitation/aggression -NRT - nicotine patch -SW on board for discharge planning. Encourage patient to participate in groups to work on coping skills. Possible discharge mid week, if patient improves
[2024-02-06] MEDS: traZODone HCL 100 MG TAB PO SCH (21:00)
--- NOTE | 2024-02-07 10:30 | P.PN ---
Progress Note - Text Progress Note Date: 02/07/24 Interval History: Patient was seen in her room and was directable and agreeable to speak with wr iter at the bedside. Patient states that she don't know if she is doing any better than when she arrived. Patient states she has not been sleeping very well. Patient appears visibly sad, and tearful appears to be fairly depressed. Fairly concrete during interaction. Patient states she is still endorsing suicidal ideations, but claims she is not going to attempt to hurt herself on the unit. Hat Brusher Machine spoke with patient about changing her medication regimen, to see if something else will work better to minimize her depressive symptoms. Patient states that she is eating a bit. At this time patient denies any homicidal ideations, intent or plan. Patient continues to state that she is having suicidal thoughts, no specific plan today. Patient denies any auditory, visual hallucinations and denies any paranoia or delusions. Patient denies any side effects from the medications and has been compliant with meds. MENTAL STATUS EXAM: General Appearance: Patient appears to be stated age, is alert, directable, and attempts to cooperate. Patient appears to have fair hygiene and grooming. Visibly sad. Behavior: Patient is seated without any agitated behavior. Sad, tearful Speech: Patient's speech is fluent and nonpressured. soft tone Mood/Affect: Patient reports their mood is sad, affect is congruent and constricted. Very sad Suicidality/Homicidality: Patient denies having any homicidal ideation intent or plan. Endorses suicidal ideations, no intent or plan Perceptions: Patient denies any visual hallucinations and denies any auditory hallucinations Though content/process: There is no evidence of any delusional thought content and thought process is linear and goal-directed. concrete, vague. Memory and concentration: AOX3, grossly intact for the purposes of this session. Judgment and insight: poor IMPRESSIONS: major depressive disorder, severe, recurrent, without psychotic features nicotine dependance cannabis use disorder PLAN: -Patient is admitted under voluntary status to [facility] for stabilization of psychiatric symptoms and safety. Patient has signed adult voluntary form and medication consent and is placed in patient's chart. -Medications : increase Trazodone 150mg qhs for sleep, Abilify 10mg po daily for mood adjunct, decrease Zoloft 100mg daily for mood/anxiety, with plan to cross taper with Effexor 37.5mg daily for anxiety/mood, Visteral 50mg qid prn for anxiety. -Ativan and Haldol PRN for agitation/aggression -NRT - nicotine patch -SW on board for discharge planning. Encourage patient to participate in groups to work on coping skills. Possible discharge this week, if patient improves
[2024-02-07] MEDS: VENLAFAXINE HCL ER 37.5 MG CAP PO SCH (10:52)
[2024-02-07] MEDS: traZODone HCL 50 MG TAB PO SCH (21:07)
[2024-02-08] MEDS: SERTRALINE 100 MG TAB PO SCH (08:31)
--- NOTE | 2024-02-08 11:30 | P.PN ---
Progress Note - Text Progress Note Date: 02/08/24 Interval History: Patient was seen in group and was directable and agreeable to speak with magazine writer in the office. Patient states that she slept better last night. Patient claims she is feeling a little better today. anxiety is mproving mildly. she is going to groups mainly in the afternoon. Patient is no longer endorsing suicidal ideations today. Patient is speaking with family at home, and states it makes her want to be home. Patient is visibly less sad today. Patient states that she is eating a bit. At this time patient denies any homicidal ideations, intent or plan. Patient denies suicidal thoughts today. Patient denies any auditory, visual hallucinations and denies any paranoia or delusions. Patient denies any side effects from the medications and has been compliant with meds. MENTAL STATUS EXAM: General Appearance: Patient appears to be stated age, is alert, directable, and attempts to cooperate. Patient appears to have fair hygiene and grooming. Behavior: Patient is seated without any agitated behavior. Speech: Patient's speech is fluent and nonpressured. soft tone Mood/Affect: Patient reports their mood is a bit better, affect is congruent and constricted. Suicidality/Homicidality: Patient denies having any homicidal ideation intent or plan. denies suicidal ideations, no intent or plan Perceptions: Patient denies any visual hallucinations and denies any auditory hallucinations Though content/process: There is no evidence of any delusional thought content and thought process is linear and goal-directed. concrete, vague. mildly improving Memory and concentration: AOX3, grossly intact for the purposes of this session. Judgment and insight: poor, mildly improving IMPRESSIONS: major depressive disorder, severe, recurrent, without psychotic features nicotine dependance cannabis use disorder PLAN: -Patient is admitted under voluntary status to [facility] for stabilization of psychiatric symptoms and safety. Patient has signed adult voluntary form and medication consent and is placed in patient's chart. -Medications : increase Trazodone 200 mg qhs for sleep, Abilify 10mg po daily for mood adjunct, decrease Zoloft 50mg daily for mood/anxiety then discontinue after tomorrow, with plan to cross taper with increase Effexor 75mg daily for anxiety/mood, Visteral 50mg qid prn for anxiety. -Ativan and Haldol PRN for agitation/aggression -NRT - nicotine patch -SW on board for discharge planning. Encourage patient to participate in groups to work on coping skills. Possible discharge this week, if patient improves
[2024-02-08] MEDS: traZODone HCL 100 MG TAB PO SCH (21:10)
[2024-02-09] MEDS: VENLAFAXINE HCL ER 75 MG CAP PO SCH (08:26)
[2024-02-09] MEDS: SERTRALINE 50 MG TAB PO ONE (08:26)
--- NOTE | 2024-02-09 10:19 | P.PN ---
Progress Note - Text Progress Note Date: 02/09/24 Interval History: Patient was seen in group and was directable and agreeable to speak with promotion writer in the office. Patient states that she feels that she is getting better. Patient states she is still having suicidal thoughts, however, she is not going to do anything. She claims to have low energy through out the day. Patient is visibly less sad today. Patient states that she is eating a bit. Patient claims she had a hard time initiating sleep last night. Heating Technician spoke with patient about sleep hygiene, and the importance of getting good rest. Heating Technician spoke about switching the Abilify to nighttime dosing as it may be suspected that this might be causing tiredness during the day. Heating Technician spoke with patient about adding melatonin, patient refusing at this time. At this time patient denies any homicidal ideations, intent or plan. Patient denies any auditory, visual hallucinations and denies any paranoia or delusions. Patient denies any side effects from the medications and has been compliant with meds. MENTAL STATUS EXAM: General Appearance: Patient appears to be stated age, is alert, directable, and attempts to cooperate. Patient appears to have fair hygiene and grooming. Behavior: Patient is seated without any agitated behavior. Not tearful today. Speech: Patient's speech is fluent and nonpressured. soft tone Mood/Affect: Patient reports their mood is a bit better, affect is congruent and constricted. mildly improving Suicidality/Homicidality: Patient denies having any homicidal ideation intent or plan. Patient continues to have suicidal ideations, no intent or plan Perceptions: Patient denies any visual hallucinations and denies any auditory hallucinations Though content/process: There is no evidence of any delusional thought content and thought process is linear and goal-directed. concrete, vague. mildly improving Memory and concentration: AOX3, grossly intact for the purposes of this session. Judgment and insight: poor, mildly improving IMPRESSIONS: major depressive disorder, severe, recurrent, without psychotic features nicotine dependance cannabis use disorder PLAN: -Patient is admitted under voluntary status to [facility] for stabilization of psychiatric symptoms and safety. Patient has signed adult voluntary form and medication consent and is placed in patient's chart. -Medications : Trazodone 200 mg qhs for sleep, change Abilify 10mg po daily for mood adjunct to qhs, discontinue Zoloft after todays dose, Effexor 75mg daily for anxiety/mood will continue to titrate upwards as needed for depression. Visteral 50mg qid prn for anxiety. -Ativan and Haldol PRN for agitation/aggression -NRT - nicotine patch -SW on board for discharge planning. Encourage patient to participate in groups to work on coping skills. Possible discharge later this week, if patient improves
[2024-02-09] MEDS: ARIPiprazole 10 MG TAB PO SCH (21:53)
[2024-02-10] MEDS: VENLAFAXINE HCL ER 75 MG CAP PO STA (10:39)
--- NOTE | 2024-02-10 11:14 | P.PN ---
Progress Note - Text Progress Note Date: 02/10/24 Interval History: Patient was seen in her room, and was directable and agreeable to speak with sandrine jones in the office. Patient states that she feels that she is doing much better than when she came in. Patient states she is still having suicidal thoughts, however, she is not going to do anything and has no specific plan. Patient is visibly less sad today. Patient states she has low energy, however, this is normal for her. Patient states that she is eating a bit. Patient states that she did sleep good last night. She is going to some groups, just not all of them. At this time patient denies any homicidal ideations, intent or plan. Patient denies any auditory, visual hallucinations and denies any paranoia or delusions. Patient denies any side effects from the medications and has been compliant with meds. MENTAL STATUS EXAM: General Appearance: Patient appears to be stated age, is alert, directable, and attempts to cooperate. Patient appears to have fair hygiene and grooming. Behavior: Patient is seated without any agitated behavior. Not tearful today. Speech: Patient's speech is fluent and nonpressured. soft tone, fairly monotone Mood/Affect: Patient reports their mood is a bit better, affect is congruent and constricted. mildly improving Suicidality/Homicidality: Patient denies having any homicidal ideation intent or plan. Patient continues to have suicidal ideations, no intent or plan Perceptions: Patient denies any visual hallucinations and denies any auditory hallucinations Though content/process: There is no evidence of any delusional thought content and thought process is linear and goal-directed. concrete, vague. mildly improving Memory and concentration: AOX3, grossly intact for the purposes of this session. Judgment and insight: poor, mildly improving IMPRESSIONS: major depressive disorder, severe, recurrent, without psychotic features nicotine dependance cannabis use disorder PLAN: -Patient is admitted under voluntary status to [facility] for stabilization of psychiatric symptoms and safety. Patient has signed adult voluntary form and medication consent and is placed in patient's chart. -Medications : Trazodone 200 mg qhs for sleep, Abilify 10mg po daily for mood adjunct to qhs, increase Effexor 150mg daily for anxiety/mood will continue to titrate upwards as needed for depression. Visteral 50mg qid prn for anxiety. -Ativan and Haldol PRN for agitation/aggression -NRT - nicotine patch -SW on board for discharge planning. Encourage patient to participate in groups to work on coping skills. Possible discharge early next week, if patient continues to improve.
[2024-02-11] MEDS: VENLAFAXINE HCL ER 150 MG CAP PO SCH (08:29)
[2024-02-11] MEDS ORDERED: diphenhydrAMINE 50 MG CAP PO PRN (10:32)
--- NOTE | 2024-02-11 11:16 | P.PN ---
Progress Note - Text Progress Note Date: 02/11/24 Interval History: Patient was seen in her room, and was directable and agreeable to speak with sandrine jones in the office. Patient states that she feels that she is feeling ok. She states she feels that the trazodone is not working for her, she is having trouble initiating and staying asleep at night. Senior Actuarial Analyst spoke to patient about discontinuing trazodone, and using Remeron isntead which patient agreeable to. Patient states that her appetite is increasing. She is going to some groups, just not all of them. At this time patient denies any homicidal ideations, intent or plan. not tearful today. Patient continues to endorse suicidal ideations, however, does not have a plan, and is not going to harm herself on the unit. Patient denies any auditory, visual hallucinations and denies any paranoia or delusions. Patient denies any side effects from the medications and has been compliant with meds. MENTAL STATUS EXAM: General Appearance: Patient appears to be stated age, is alert, directable, and attempts to cooperate. Patient appears to have fair hygiene and grooming. Behavior: Patient is seated without any agitated behavior. Not tearful today. Speech: Patient's speech is fluent and nonpressured. soft tone, fairly monotone Mood/Affect: Patient reports their mood is "ok", affect is congruent and constricted. mildly improving Suicidality/Homicidality: Patient denies having any homicidal ideation intent or plan. Patient continues to have suicidal ideations, no intent or plan Perceptions: Patient denies any visual hallucinations and denies any auditory hallucinations Though content/process: There is no evidence of any delusional thought content and thought process is linear and goal-directed. concrete, vague. mildly improving Memory and concentration: AOX3, grossly intact for the purposes of this session. Judgment and insight: poor, mildly improving IMPRESSIONS: major depressive disorder, severe, recurrent, without psychotic features nicotine dependance cannabis use disorder PLAN: -Patient is admitted under voluntary status to [facility] for stabilization of psychiatric symptoms and safety. Patient has signed adult voluntary form and medication consent and is placed in patient's chart. -Medications : discontinue Trazodone add Remeron 15mg qhs for sleep. Benedryl 50mg qhs prn for insomnia, Abilify 10mg po daily for mood adjunct to qhs, Effexor 150mg daily for anxiety/mood will continue to titrate upwards as needed for depression. Visteral 50mg qid prn for anxiety. -Ativan and Haldol PRN for agitation/aggression -NRT - nicotine patch -SW on board for discharge planning. Encourage patient to participate in groups to work on coping skills. Possible discharge wednesday, if patient continues to improve.
[2024-02-11 11:32] VITALS: BMI 34.5
[2024-02-11] MEDS: MIRTAZAPINE 15 MG TAB PO SCH (21:19)
--- NOTE | 2024-02-12 10:27 | P.PN ---
Progress Note - Text Progress Note Date: 02/12/24 Interval history: Patient was seen laying in her bed today and was directable and agreeable to speak with aligner typewriter. Patient states that she is doing a bit better with regards to her mood, states that she feels her anxiety is also improving mildly since yesterday. States that she is not having suicidal thoughts today. She has been mainly keeping to herself on the unit, not reporting any side effects. States that she was able to sleep a bit better last night with the Remeron. She was asking about potential discharge on Wednesday. At this time patient denies any suicidal or homicidal ideations intent or plan. Denies any Auditory or visual hallucinations. Patient denies any side effects from the medications and has been compliant with meds. Mental status exam: General Appearance: Patient appears to be stated age is alert, directable, and cooperative. Behavior: No agitated behavior. Patient is calm and directable, more cooperative today Speech: Patient's speech is fluent and nonpressured. Mood/Affect: Mood is improving mildly, affect is congruent and constricted. Suicidality/Homicidality: Patient denies having any suicidal or homicidal ideation intent or plan. Perceptions: Patient denies any auditory or visual hallucinations. Though content/process: There is no evidence of any delusional thought content and thought process is linear and goal-directed. Memory and concentration: AOX3, grossly intact for the purposes of this session Judgment and insight: improving mildly Assessment/Plan: Continue with current diagnosis. Patient continues to meet criteria for inpatient psychiatric admission for symptom stabilization and safety. Patient will be maintained on current psychotropic medication regimen. Will consider possibly increasing Effexor tomorrow or Remeron if needed. Monitor for medication compliance and for any psychotropic medication side effects. Will continue to monitor ongoing response to treatment. Encouraged participation in milieu. Likely discharge Wednesday if patient continues to improve.
[2024-02-13 07:09] VITALS: RESP 14
--- NOTE | 2024-02-13 10:06 | P.PN ---
Progress Note - Text Progress Note Date: 02/13/24 Interval history: Patient was seen laying in her bed today and was directable and agreeable to speak with creative services writer. Patient states that she is doing a bit better with regards to her mood, although she did claim that she would like to have her Effexor increased to try the higher dose. Claims that the anxiety has been mildly improving. She was not tearful today, reading a book in her room. She has been mainly keeping to herself on the unit, not reporting any side effects. States that she was able to sleep a bit better last night with the Remeron. At this time patient denies any suicidal or homicidal ideations intent or plan. Denies any Auditory or visual hallucinations. Patient denies any side effects from the medications and has been compliant with meds. Mental status exam: General Appearance: Patient appears to be stated age is alert, directable, and cooperative. Behavior: No agitated behavior. Patient is calm and directable, more cooperative today Speech: Patient's speech is fluent and nonpressured. Mood/Affect: Mood is improving mildly, affect is congruent and constricted. Suicidality/Homicidality: Patient denies having any suicidal or homicidal ideation intent or plan. Perceptions: Patient denies any auditory or visual hallucinations. Though content/process: There is no evidence of any delusional thought content and thought process is linear and goal-directed. Fairly concrete Memory and concentration: AOX3, grossly intact for the purposes of this session Judgment and insight: improving mildly Assessment/Plan: Continue with current diagnosis. Patient continues to meet criteria for inpatient psychiatric admission for symptom stabilization and safety. Patient will be maintained on current psychotropic medication regimen, with the exception of increasing Effexor to 225 mg daily for mood/anxiety. Monitor for medication compliance and for any psychotropic medication side effects. Will continue to monitor ongoing response to treatment. Encouraged participation in milieu. Likely discharge Wednesday if patient continues to improve.
[2024-02-13] MEDS: VENLAFAXINE HCL ER 75 MG CAP PO STA (11:47)
[2024-02-14 07:22] VITALS: BP 91/51; PULSE 80; TEMP 97.8
[2024-02-14] MEDS: VENLAFAXINE HCL ER 75 MG CAP PO SCH (08:09)
--- NOTE | 2024-02-14 10:56 | P.DS ---
Providers Date of admission: 02/01/24 23:09 Expected date of discharge: 02/14/24 Attending physician: Isaac Stiles MD Consults: 02/02/24 00:22 Consult Physician Routine Consulting Provider: León Drummond Consult Reason/Comments: H&P and medical Do you want consulting provider notified?: Yes Primary care physician: León Drummond MD - Discharge Diagnosis(es) (1) Major depressive disorder, recurrent severe without psychotic features Current Visit: Yes Status: Acute Priority: High (2) Nicotine dependence Current Visit: Yes Status: Acute Priority: Low (3) Cannabis use disorder Current Visit: Yes Status: Acute Priority: Medium Hospital Course: Admission HPI: Admission note was completed by medical technical writer "Patient presented to the hospital on 01/31. As per EPS note, "pt presents with tearful affect and had initially answered most questions with "I don't know" or "I don't remember" when medical technical writer attempted assessment before this point. Db2 Developer then was able to complete assessment upon returning to room. However, pt continues to answer questions minimally and gives very brief answers. pt tearful throughout assessment. When asked what brought her to the ER, pt states, "suicidal thoughts." Db2 Developer attempted to obtain further information regarding length of time pt has been experiencing SI as well as if thoughts were becoming more frequent, more intrusive, lasting longer and pt states, "I don't know" before beginning to cry again. pt continues to report SI with plan to hang herself or put her head into a deep fryer at her job at [employer]. pt is unable to recall a specific stressor that caused worsening of symptoms. pt denies HI and hallucinations. pt reports poor sleep, but states that she is unsure if this is because she has problems falling asleep, staying asleep, or both. pt unable to verbalize estimated average sleep she's been getting and instead begins to cry again. pt reports that she has had decreased appetite, but is unable to provide further information as to how often she has been eating, how much she has been eating, or how long she has not had an appetite. pt attempted to cooperate with assessment." Upon todays assessment, patient states she has been having suicidal thoughts for months now. She states she is anxious. Patient cannot pin point any stressors, only that she is just really sad. patient was very tearful, sobbing during the interview. States she does not want to work anymore, and she finds it difficult to do with her mental state. States she has been dealing with depression for her whole life. States she is still having suicidal thoughts, however, is not going to do anything while in the hospital. She states her sleep is not great, and she wakes up alot during the night. not reporting any significant stressors. Her appetite is poor. Patient denies any homicidal ideations intent or plan. At this time patient denies any auditory or visual hallucinations. Patient denies any flight of ideas racing thoughts. Patient denies using recreational drugs. patient's UDS was positive for marijuana. Patient admits to smoking cigarettes." Hospital course: Upon admission to the unit patient was directable and agreeable to commence treatment and signed adult voluntary form. Patient got along well with other patients on the unit and followed unit protocol. Patient was compliant with the medications and denied any side effects throughout hospital course. Patient was started on Effexor and increased to 225 mg daily for mood/anxiety, remeron 15 mg qhs for insomnia/mood, abilify po 10 mg qhs for mood adjunct/stabilization. Patient spoke of her stressors and engaged in therapy both group and individual. Patient was also seen by medical team for history and physical exam. Throughout the course of the hospitalization patient gradually improved with regards to mood, anxiety, suicidal thoughts, sleep and returned back to their baseline level of functioning. On the day of discharge patient denied any suicidal or homicidal ideations intent or plan denied any auditory or visual hallucinations. Patient endorsed wanting to live for her health and family. The patient denied any access to guns or weapons. Patient denied any paranoia and did not endorse any delusions. Patient does have a significant history of substance abuse and was counseled on abstaining from all substances including alcohol and marijuana. Patient was also counseled on the medications and need for regular compliance and was encouraged to follow-up with their outpatient appointment for mental health and also for primary care. Prior to discharge a family meeting will be arranged by social media coordinator to answer any questions and ensure safety upon discharge. Mental status exam: General Appearance: Patient appears to be mildly overweight, stated age is alert, and cooperative. Patient is in no acute distress and has improved hygiene and grooming Behavior: Patient is calmly seated without any agitated behavior. Speech: Patient's speech is fluent and nonpressured. Mood/Affect: Patient reports their mood is "good", affect is congruent Suicidality/Homicidality: Patient denies having any suicidal or homicidal ideation intent or plan. Perceptions: Patient denies any auditory or visual hallucinations. Though content/process: There is no evidence of any delusional thought content and thought process is linear and goal-directed. More future oriented Memory and concentration: AOX3, grossly intact for the purposes of this session. Can spell "WORLD" backwards correctly. Judgment and insight: Chronically poor, however has improved with guarded prognosis Impression: major depressive disorder, severe, recurrent, without psychotic features nicotine dependance cannabis use disorder Plan: -Continue with discharge today as patient has improved and stabilized psychiatrically and is not currently an imminent threat to herself and/or o thers. Patient will remain at chronically elevated risk for harm to self and/or others due to her impulsivity, chronic mental illness and substance abuse. -Continue medications: Effexor XR 225 mg daily for mood/anxiety, Remeron 15 mg nightly for insomnia/mood, Abilify p.o. 10 mg nightly for mood adjunct/mood stabilization. -Patient was counseled on the need for medication compliance and appropriate follow-up at mental health and also primary care for medical issues. Patient verbalized understanding and agreed. -Social work to arrange for and conduct family meeting to ensure safety upon discharge and answer any questions/concerns. Social work also to arrange for patients follow up appointments with [facility] for psychiatric care along with follow up with primary care provider. -Patient counseled on abstaining from recreational drugs and marijuana and alcohol. Was informed/educated on the adverse effects on their physical and mental health. Patient verbally agreed and understood. -Patient was instructed to return to the hospital or seek immediate medical care if their psychiatric or medical symptoms do worsen or reoccur. Allergies Allergy/AdvReac Type Severity Reaction Status Date / Time No Known Allergies Allergy Verified 02/01/24 17:54 Laboratory Results WBC 7.4 k/uL (3.8-10.6) 02/03/24 07:43 RBC 4.93 m/uL (3.80-5.40) 02/03/24 07:43 Hgb 14.6 gm/dL (11.4-16.0) 02/03/24 07:43 Hct 45.8 % (34.0-46.0) 02/03/24 07:43 MCV 92.9 fL (80.0-100.0) 02/03/24 07:43 MCH 29.6 pg (25.0-35.0) 02/03/24 07:43 MCHC 31.9 g/dL (31.0-37.0) 02/03/24 07:43 RDW 12.8 % (11.5-15.5) 02/03/24 07:43 Plt Count 233 k/uL (150-450) 02/03/24 07:43 MPV 8.2 02/03/24 07:43 Neutrophils % 48 % 02/03/24 07:43 Lymphocytes % 38 % 02/03/24 07:43 Monocytes % 7 % 02/03/24 07:43 Eosinophils % 4 % 02/03/24 07:43 Basophils % 1 % 02/03/24 07:43 Neutrophils # 3.5 k/uL (1.3-7.7) 02/03/24 07:43 Lymphocytes # 2.8 k/uL (1.0-4.8) 02/03/24 07:43 Monocytes # 0.5 k/uL (0-1.0) 02/03/24 07:43 Eosinophils # 0.3 k/uL (0-0.7) 02/03/24 07:43 Basophils # 0.0 k/uL (0-0.2) 02/03/24 07:43 Sodium 143 mmol/L (137-145) 02/03/24 07:43 Potassium 3.7 mmol/L (3.5-5.1) 02/03/24 07:43 Chloride 112 mmol/L (98-107) H 02/03/24 07:43 Carbon Dioxide 23 mmol/L (22-30) 02/03/24 07:43 Anion Gap 8 mmol/L 02/03/24 07:43 BUN 13 mg/dL (7-17) 02/03/24 07:43 Creatinine 0.74 mg/dL (0.52-1.04) 02/03/24 07:43 Est GFR (CKD-EPI)AfAm >90 (>60 ml/min/1.73 sqM) 02/03/24 07:43 Est GFR (CKD-EPI)NonAf >90 (>60 ml/min/1.73 sqM) 02/03/24 07:43 Glucose 102 mg/dL (74-99) H 02/03/24 07:[address] Glu mg/dL 108 mg/dL 02/03/24 07:43 Hemoglobin A1c 5.4 % (<=6.0) 02/03/24 07:43 Calcium 9.4 mg/dL (8.4-10.2) 02/03/24 07:43 Total Bilirubin 0.2 mg/dL (0.2-1.3) 02/03/24 07:43 AST 19 U/L (14-36) 02/03/24 07:43 ALT 12 U/L (4-34) 02/03/24 07:43 Alkaline Phosphatase 70 U/L (38-126) 02/03/24 07:43 Total Protein 6.9 g/dL (6.3-8.2) 02/03/24 07:43 Albumin 4.0 g/dL (3.5-5.0) 02/03/24 07:43 Triglycerides 157.00 mg/dL (0.00-149.00) H 02/03/24 07:43 Cholesterol 236.00 mg/dL (0.00-200.00) H 02/03/24 07:43 LDL Cholesterol, Calc 150.9 mg/dL (0.0-131.0) H 02/03/24 07:43 VLDL Cholesterol, Calc 31.40 mg/dL (5.00-40.00) 02/03/24 07:43 HDL Cholesterol 53.70 mg/dL (40.00-60.00) 02/03/24 07:43 Cholesterol/HDL Ratio 4.39 Ratio 02/03/24 07:43 TSH 0.400 mIU/L (0.465-4.680) L 02/03/24 07:43 Free T4 1.35 ng/dL (0.80-1.80) 02/03/24 07:43 Free T3 pg/mL 2.60 pg/mL (2.30-4.20) 02/03/24 07:43 Urine Color Yellow 02/03/24 17:40 Urine Appearance Cloudy (Clear) H 02/03/24 17:40 Urine pH 6.5 (5.0-8.0) 02/03/24 17:40 Ur Specific Vista 1.033 (1.001-1.035) 02/03/24 17:40 Urine Protein 1+ (Negative) H 02/03/24 17:40 Urine Glucose (UA) Negative (Negative) 02/03/24 17:40 Urine Ketones Trace (Negative) H 02/03/24 17:40 Urine Blood Negative (Negative) 02/03/24 17:40 Urine Nitrite Negative (Negative) 02/03/24 17:40 Urine Bilirubin Negative (Negative) 02/03/24 17:40 Urine Urobilinogen <2.0 mg/dL (<2.0) 02/03/24 17:40 Ur Leukocyte Esterase Negative (Negative) 02/03/24 17:40 Urine RBC 2 /hpf (0-5) 02/03/24 17:40 Urine WBC 5 /hpf (0-5) 02/03/24 17:40 Ur Squamous Epith Cells 2 /hpf (0-4) 02/03/24 17:40 Calcium Oxalate Crystal Occasional /hpf (None) H 02/03/24 17:40 Urine Bacteria Many /hpf (None) H 02/03/24 17:40 Urine Mucus Many /hpf (None) H 02/03/24 17:40 Urine HCG, Qual Not Detected (Not Detectd) 02/01/24 19:30 Urine Opiates Screen Not Detected (NotDetected) 02/01/24 19:29 Ur Oxycodone Screen Not Detected (NotDetected) 02/01/24 19:29 Urine Methadone Screen Not Detected (NotDetected) 02/01/24 19:29 Ur Barbiturates Screen Not Detected (NotDetected) 02/01/24 19:29 U Tricyclic Antidepress Not Detected (NotDetected) 02/01/24 19:29 Ur Phencyclidine Scrn Not Detected (NotDetected) 02/01/24 19:29 Ur Amphetamines Screen Not Detected (NotDetected) 02/01/24 19:29 U Methamphetamines Scrn Not Detected (NotDetected) 02/01/24 19:29 U Benzodiazepines Scrn Not Detected (NotDetected) 02/01/24 19:29 Urine Cocaine Screen Not Detected (NotDetected) 02/01/24 19:29 U Marijuana (THC) Screen Detected (NotDetected) H 02/01/24 19:29 SARS-CoV-2 (PCR) Not Detected (Not Detectd) 02/01/24 21:45 Vital Signs Temp 97.8 F 02/14/24 06:41 Pulse 80 02/14/24 06:41 Resp 14 02/14/24 06:41 BP 91/51 02/14/24 06:41 Pulse Ox 98 02/14/24 06:41 FiO2 Intake & Output 02/13/24 02/14/24 02/14/24 18:59 06:59 18:59 Weight 89.8 kg Patient Condition at Discharge: Stable Plan - Discharge Summary Discharge Rx Participant: No New Discharge Prescriptions: New ARIPiprazole [Abilify] 10 mg PO HS 30 Days #30 tab Venlafaxine HCl [Effexor XR] 225 mg PO DAILY 30 Days #30 tab Mirtazapine [Remeron] 15 mg PO HS 30 Days #30 tab Continue Levonorgestrel-Ethinyl Estradiol (Sronyx) 0.1-20mg-Mcg Tabs 1 tab PO DAILY Omeprazole 20 mg PO DAILY Discontinued traZODone HCL [Desyrel] 50 mg PO HS PRN PRN Reason: Insomnia Lurasidone [Latuda] 40 mg PO W/SUPPER Sertraline [Zoloft] 100 mg PO DAILY hydrOXYzine pamoate [Vistaril] 50 mg PO QID PRN PRN Reason: Anxiety Discharge Medication List Levonorgestrel-Ethinyl Estradiol (Sronyx) 0.1-20mg-Mcg Tabs 1 tab PO DAILY 01/09/24 [History] Omeprazole 20 mg PO DAILY 01/09/24 [History] ARIPiprazole [Abilify] 10 mg PO HS 30 Days #30 tab 02/14/24 [Rx] Mirtazapine [Remeron] 15 mg PO HS 30 Days #30 tab 02/14/24 [Rx] Venlafaxine HCl [Effexor XR] 225 mg PO DAILY 30 Days #30 tab 02/14/24 [Rx] Follow up Appointment(s)/Referral(s): León Drummond MD [Primary Care Provider] - 1-2 days Patient Instructions/Handouts: How to Stop Smoking (DC), Depression (DC), Depression in Older Adults (DC) Activity/Diet/Wound Care/Special Instructions: Avoid the use of street drugs and alcohol. Take all medications as prescribed. When you are in need of refills on your medications, please contact your medical provider and/or outpatient psychiatrist/provider to have this done. Please go to your scheduled outpatient appointment for aftercare treatment. If symptoms return or become worse, call the crisis line at and/or go to the nearest emergency room for evaluation. National Suicide Hotline 988. Discharge Disposition: HOME SELF-CARE
== END 2024-02-14 16:35 | disposition home or self-care (01) | DRG 885 ==
LOC: EC 15:22 → 3MHU 23:09
PROVIDERS: ADMIT Psychiatry & Neurology Psychiatry; ATTEND Psychiatry & Neurology Psychiatry
DX: F33.3 Major depressive disorder, recurrent, severe with psychotic symptoms (principal); R45.851 Suicidal ideations; F12.10 Cannabis abuse, uncomplicated; F17.210 Nicotine dependence, cigarettes, uncomplicated; F41.1 Generalized anxiety disorder; G47.00 Insomnia, unspecified; Z11.52 Encounter for screening for COVID-19; Z71.51 Drug abuse counseling and surveillance of drug abuser; Z71.89 Other specified counseling; Z79.899 Other long term (current) drug therapy; Z81.8 Family history of other mental and behavioral disorders
CPT/HCPCS: 80053; 80061; 80306; 81001; 81025; 82075; 83036; 84439; 84443; 84481; 85025; 87635; 99285

== ENCOUNTER 2024-03-01 14:17 | Inpatient (IN) | payer OTHER ==
--- NOTE | 2024-03-01 14:37 | ED ---
General Adult HPI - General Chief complaint: Psychiatric Symptoms Stated complaint: Mental health Time Seen by Provider: 03/01/24 14:19 Source: patient, EMS, RN notes reviewed, old records reviewed Mode of arrival: EMS Limitations: no limitations - History of Present Illness Initial comments: 34-year-old female presenting for mental health evaluation. Patient reports increased depression, suicidal thoughts. She states she has thought of hanging herself. She denies physical complaints. Denies drugs or alcohol. She is on prescription medication and states she has been taking this as prescribed. - Related Data Home Medications Medication Instructions Recorded Confirmed Levonorgestrel-Ethinyl Estradiol 1 tab PO DAILY 01/09/24 02/01/24 (Sronyx) 0.1-20mg-Mcg Tabs Omeprazole 20 mg PO DAILY 01/09/24 02/01/24 Previous Rx's Medication Instructions Recorded ARIPiprazole [Abilify] 10 mg PO HS 30 Days #30 tab 02/14/24 Mirtazapine [Remeron] 15 mg PO HS 30 Days #30 tab 02/14/24 Venlafaxine HCl [Effexor XR] 225 mg PO DAILY 30 Days #30 tab 02/14/24 Allergies Allergy/AdvReac Type Severity Reaction Status Date / Time No Known Allergies Allergy Verified 02/01/24 17:54 Review of Systems ROS Statement: Those systems with pertinent positive or pertinent negative responses have been documented in the HPI. ROS Other: All systems not noted in ROS Statement are negative. Past Medical History Past Medical History: Asthma History of Any Multi-Drug Resistant Organisms: None Reported Past Surgical History: No Surgical Hx Reported Past Anesthesia/Blood Transfusion Reactions: No Reported Reaction Past Psychological History: Anxiety, Depression Smoking Status: Current every day smoker Past Alcohol Use History: None Reported Past Drug Use History: Marijuana - Past Family History Mother Family Medical History: No Reported History Additional Family Medical History / Comment(s): Hx of depression, committed suicide Father Family Medical History: No Reported History Additional Family Medical History / Comment(s): Hx of depression, committed suicide General Exam Limitations: no limitations General appearance: alert, in no apparent distress Head exam: Present: atraumatic, normocephalic Eye exam: Present: normal appearance, PERRL ENT exam: Present: normal exam Neck exam: Present: normal inspection. Absent: tenderness, meningismus Respiratory exam: Present: normal lung sounds bilaterally. Absent: respiratory distress, wheezes Cardiovascular Exam: Present: regular rate, normal rhythm GI/Abdominal exam: Present: soft. Absent: distended, tenderness, guarding Extremities exam: Present: normal inspection, normal capillary refill Neurological exam: Present: alert, oriented X3 Psychiatric exam: Present: depressed, flat affect, suicidal ideation Skin exam: Present: warm, dry, intact Course Vital Signs 03/01/24 14:18 Temperature 98.4 F Pulse Rate 90 Respiratory 18 Rate Blood Pressure 150/90 O2 Sat by Pulse 99 Oximetry - Reevaluation(s) Reevaluation #1: 03/01/24 14:37 Cleared for EPS Medical Decision Making - Medical Decision Making Was pt. sent in by a medical professional or institution (, [facility], [facility], urgent care, hospital, or jail...) When possible be specific @ -No Did you speak to anyone other than the patient for history (EMS, parent, family, police, friend...)? What history was obtained from this source @ -No Did you review nursing and triage notes (agree or disagree)? Why? @ -I reviewed and agree with nursing and triage notes Were old charts reviewed (outside hosp., previous admission, EMS record, old EKG, old radiological studies, urgent care reports/EKG's, jail records)? Report findings @ -No old charts were reviewed Differential mental health EKG interpreted by me (3pts min.). @ -As above X-rays interpreted by me (1pt min.). @ -None done CT interpreted by me (1pt min.). @ -None done U/S interpreted by me (1pt. min.). @ -None done What testing was considered but not performed or refused? (CT, X-rays, U/S, labs)? Why? @ -None What meds were considered but not given or refused? Why? @ -None Did you discuss the management of the patient with other professionals (professionals i.e. [facility], [facility], lab, RT, psych nurse, social service liaison, grape crusher, teacher, juvenile probation officer, manager case management)? Give summary @ -No Was smoking cessation discussed for >3mins.? @ -No Was critical care preformed (if so, how long)? @ -No Were there social determinants of health that impacted care today? How? (Homelessness, low income, unemployed, alcoholism, drug addiction, tra nsportation, low edu. Level, literacy, decrease access to med. care, shelter, rehab)? @ -No Was there de-escalation of care discussed even if they declined (Discuss DNR or withdrawal of care, Hospice)? DNR status @ -No What co-morbidities impacted this encounter? (DM, HTN, Smoking, COPD, CAD, Cancer, CVA, ARF, Chemo, Hep., AIDS, mental health diagnosis, sleep apnea, morbid obesity)? @Depression Was patient admitted / discharged? Hospital course, mention meds given and route, prescriptions, significant lab abnormalities, going to OR and other pertinent info. @Cleared for EPS awaiting evaluation. Evaluated and will be admitted to this institution for further evaluation and treatment. Undiagnosed new problem with uncertain prognosis? @ -No Drug Therapy requiring intensive monitoring for toxicity (Heparin, Nitro, Insulin, Cardizem)? @ -No Were any procedures done? @ -No Diagnosis/symptom? @Depression, suicidal ideation Acute, or Chronic, or Acute on Chronic? @acute Uncomplicated (without systemic symptoms) or Complicated (systemic symptoms)? @ -Default Side effects of treatment? @ -No Exacerbation, Progression, or Severe Exacerbation? @ -No Poses a threat to life or bodily function? How? (Chest pain, USA, PA, pneumonia, PE, COPD, DKA, ARF, appy, cholecystitis, CVA, Diverticulitis, Homicidal, Suicidal, threat to staff... and all critical care pts) @ -yes, self-harm Disposition Clinical Impression: Depression, Suicidal ideation Disposition: ADMITTED IP TO THIS [facility] Condition: Stable Is patient prescribed a controlled substance at d/c from ED?: No Referrals: León Drummond MD [Primary Care Provider] - 1-2 days Time of Disposition: 15:04
[2024-03-01 16:54] LABS: Basophils # (A) 0.1 k/uL (0-0.2); Basophils % (A) 1 %; Eosinophils # (A) 0.1 k/uL (0-0.7); Eosinophils % (A) 1 %; HCT 45.8 % (34.0-46.0); HGB 14.5 gm/dL (11.4-16.0); Lymphocytes # (A) 2.7 k/uL (1.0-4.8); Lymphocytes % (A) 23 %; MCH 29.2 pg (25.0-35.0); MCHC 31.6 g/dL (31.0-37.0); MCV 92.6 fL (80.0-100.0); Mean Platelet Volume 7.6; Monocytes # (A) 0.5 k/uL (0-1.0); Monocytes % (A) 4 %; Neutrophils # (A) 8.3 k/uL (1.3-7.7); Neutrophils % (A) 70 %; Platelet Count 253 k/uL (150-450); RBC 4.94 m/uL (3.80-5.40); RDW 12.6 % (11.5-15.5); WBC 11.9 k/uL (3.8-10.6)
[2024-03-01 17:06] LABS: ALT 11 U/L (4-34); AST 19 U/L (14-36); African American GFR (CKD) >90 (>60 ml/min/1.73 sqM); Albumin 4.1 g/dL (3.5-5.0); Alkaline Phosphatase 80 U/L (38-126); Anion Gap 9 mmol/L; Blood Urea Nitrogen 13 mg/dL (7-17); Calcium 9.2 mg/dL (8.4-10.2); Carbon Dioxide 22 mmol/L (22-30); Chloride 109 mmol/L (98-107); Glucose 83 mg/dL (74-99); Non-African American GFR(CKD) >90 (>60 ml/min/1.73 sqM); Sodium 140 mmol/L (137-145); Total Bilirubin 0.3 mg/dL (0.2-1.3); Total Protein 7.2 g/dL (6.3-8.2)
[2024-03-01 17:13] LABS: Amorphous Sediment,Urine Rare /hpf; Appearance,Urine Turbid (Clear); Bacteria,Urine Many /hpf; Bilirubin,Urine Negative (Negative); Blood,Urine Negative (Negative); Color,Urine Yellow; Glucose,Urine (UA) Negative (Negative); Ketones,Urine Negative (Negative); Leukocyte Esterase,Urine Trace (Negative); Mucus,Urine Many /hpf; Nitrite,Urine Negative (Negative); PH, Urine 5.5 (5.0-8.0); Protein,Urine Trace (Negative); RBC,Urine 3 /hpf (0-5); Specific Gravity,Urine 1.026 (1.001-1.035); Squamous Epithelial Cell,Urine 14 /hpf (0-4); Urobilinogen,Urine <2.0 mg/dL (<2.0); WBC,Urine 12 /hpf (0-5)
[2024-03-01 17:21] LABS: Amphetamine Screen,Urine Not Detected (NotDetected); Barbiturate Screen,Urine Not Detected (NotDetected); Benzodiazepines Screen,Urine Not Detected (NotDetected); Cocaine Screen,Urine Not Detected (NotDetected); Methadone Screen, Urine Not Detected (NotDetected); Opiate Screen,Urine Not Detected (NotDetected); Oxycodone Screen, Urine Not Detected (NotDetected); Phencyclidine Screen,Urine Not Detected (NotDetected); Tricyclic Antidepressant,Urine Not Detected (NotDetected); Urn Cannabinoid Scrn Detected (NotDetected)
[2024-03-01] MEDS ORDERED: MAG HYDROX/AL HYDROX/SIMETH 355 ML BOTTLE PO PRN (19:31)
[2024-03-01] MEDS ORDERED: ACETAMINOPHEN TAB 325 MG TAB PO PRN (19:31)
[2024-03-01] MEDS ORDERED: MAGNESIUM HYDROXIDE 2,400 MG/30 ML CUP PO PRN (19:31)
[2024-03-01] MEDS ORDERED: traZODone HCL 50 MG TAB PO PRN (19:34)
[2024-03-01] MEDS ORDERED: hydrOXYzine HCL 50 MG/ML 1 ML VIAL IM PRN (19:34)
[2024-03-01] MEDS ORDERED: hydrOXYzine pamoate 25 MG CAP PO PRN (19:34)
[2024-03-01] MEDS: MIRTAZAPINE 15 MG TAB PO SCH (20:57)
[2024-03-01] MEDS: ARIPiprazole 10 MG TAB PO SCH (20:57)
[2024-03-02] MEDS: VENLAFAXINE HCL ER 75 MG CAP PO SCH (08:17)
[2024-03-02] MEDS: NICOTINE 14MG/24HR PATCH TRANSDERM SCH (08:17)
[2024-03-02] MEDS: PANTOPRAZOLE 40 MG TABLET PO SCH (08:17)
[2024-03-02] MEDS: LEVONORGESTREL ETHINYL ESTRADIOL PO SCH (10:34)
--- NOTE | 2024-03-02 20:35 | P.HP ---
Psychiatric H&P - . H&P Date: 03/02/24 History & Physical: Allergies Allergy/AdvReac Type Severity Reaction Status Date / Time No Known Allergies Allergy Verified 03/01/24 15:20 Vital Signs Temp 98.2 F 03/01/24 20:41 Pulse 74 03/02/24 06:48 Resp 16 03/01/24 20:41 BP 103/51 03/02/24 06:48 Pulse Ox 99 03/01/24 20:41 FiO2 Intake & Output 03/02/24 03/02/24 03/03/24 06:59 18:59 06:59 Weight 86.75 kg Laboratory Last Values WBC 11.9 k/uL (3.8-10.6) H 03/01/24 16:42 RBC 4.94 m/uL (3.80-5.40) 03/01/24 16:42 Hgb 14.5 gm/dL (11.4-16.0) 03/01/24 16:42 Hct 45.8 % (34.0-46.0) 03/01/24 16:42 MCV 92.6 fL (80.0-100.0) 03/01/24 16:42 MCH 29.2 pg (25.0-35.0) 03/01/24 16:42 MCHC 31.6 g/dL (31.0-37.0) 03/01/24 16:42 RDW 12.6 % (11.5-15.5) 03/01/24 16:42 Plt Count 253 k/uL (150-450) 03/01/24 16:42 MPV 7.6 03/01/24 16:42 Neutrophils % 70 % 03/01/24 16:42 Lymphocytes % 23 % 03/01/24 16:42 Monocytes % 4 % 03/01/24 16:42 Eosinophils % 1 % 03/01/24 16:42 Basophils % 1 % 03/01/24 16:42 Neutrophils # 8.3 k/uL (1.3-7.7) H 03/01/24 16:42 Lymphocytes # 2.7 k/uL (1.0-4.8) 03/01/24 16:42 Monocytes # 0.5 k/uL (0-1.0) 03/01/24 16:42 Eosinophils # 0.1 k/uL (0-0.7) 03/01/24 16:42 Basophils # 0.1 k/uL (0-0.2) 03/01/24 16:42 Sodium 140 mmol/L (137-145) 03/01/24 16:42 Potassium 4.0 mmol/L (3.5-5.1) 03/01/24 16:42 Chloride 109 mmol/L (98-107) H 03/01/24 16:42 Carbon Dioxide 22 mmol/L (22-30) 03/01/24 16:42 Anion Gap 9 mmol/L 03/01/24 16:42 BUN 13 mg/dL (7-17) 03/01/24 16:42 Creatinine 0.65 mg/dL (0.52-1.04) 03/01/24 16:42 Est GFR (CKD-EPI)AfAm >90 (>60 ml/min/1.73 sqM) 03/01/24 16:42 Est GFR (CKD-EPI)NonAf >90 (>60 ml/min/1.73 sqM) 03/01/24 16:42 Glucose 83 mg/dL (74-99) 03/01/24 16:[address] Glu mg/dL 111 mg/dL 03/01/24 16:42 Hemoglobin A1c 5.5 % (<=6.0) 03/01/24 16:42 Calcium 9.2 mg/dL (8.4-10.2) 03/01/24 16:42 Total Bilirubin 0.3 mg/dL (0.2-1.3) 03/01/24 16:42 AST 19 U/L (14-36) 03/01/24 16:42 ALT 11 U/L (4-34) 03/01/24 16:42 Alkaline Phosphatase 80 U/L (38-126) 03/01/24 16:42 Total Protein 7.2 g/dL (6.3-8.2) 03/01/24 16:42 Albumin 4.1 g/dL (3.5-5.0) 03/01/24 16:42 TSH 0.126 mIU/L (0.465-4.680) L 03/01/24 16:42 Urine Color Yellow 03/01/24 16:32 Urine Appearance Turbid (Clear) H 03/01/24 16:32 Urine pH 5.5 (5.0-8.0) 03/01/24 16:32 Ur Specific [place] 1.026 (1.001-1.035) 03/01/24 16:32 Urine Protein Trace (Negative) H 03/01/24 16:32 Urine Glucose (UA) Negative (Negative) 03/01/24 16:32 Urine Ketones Negative (Negative) 03/01/24 16:32 Urine Blood Negative (Negative) 03/01/24 16:32 Urine Nitrite Negative (Negative) 03/01/24 16:32 Urine Bilirubin Negative (Negative) 03/01/24 16:32 Urine Urobilinogen <2.0 mg/dL (<2.0) 03/01/24 16:32 Ur Leukocyte Esterase Trace (Negative) H 03/01/24 16:32 Urine RBC 3 /hpf (0-5) 03/01/24 16:32 Urine WBC 12 /hpf (0-5) H 03/01/24 16:32 Ur Squamous Epith Cells 14 /hpf (0-4) H 03/01/24 16:32 Amorphous Sediment Rare /hpf (None) H 03/01/24 16:32 Urine Bacteria Many /hpf (None) H 03/01/24 16:32 Urine Mucus Many /hpf (None) H 03/01/24 16:32 Urine HCG, Qual Not Detected (Not Detectd) 03/01/24 16:32 Urine Opiates Screen Not Detected (NotDetected) 03/01/24 16:32 Ur Oxycodone Screen Not Detected (NotDetected) 03/01/24 16:32 Urine Methadone Screen Not Detected (NotDetected) 03/01/24 16:32 Ur Barbiturates Screen Not Detected (NotDetected) 03/01/24 16:32 U Tricyclic Antidepress Not Detected (NotDetected) 03/01/24 16:32 Ur Phencyclidine Scrn Not Detected (NotDetected) 03/01/24 16:32 Ur Amphetamines Screen Not Detected (NotDetected) 03/01/24 16:32 U Methamphetamines Scrn Not Detected (NotDetected) 03/01/24 16:32 U Benzodiazepines Scrn Not Detected (NotDetected) 03/01/24 16:32 Urine Cocaine Screen Not Detected (NotDetected) 03/01/24 16:32 U Marijuana (THC) Screen Detected (NotDetected) H 03/01/24 16:32 SARS-CoV-2 (PCR) Not Detected (Not Detectd) 03/01/24 15:20 03/02/24 20:33 Psychiatric Evaluation Identifying Data: Ms. Lambert is 34 years old, single W.F., who live in [place], [place] in an apartment with her boyfriend. Chief Complaint: I am very depressed History of Psychiatric Illness- Current psychiatric History: The patient noted that after discharge rom here last month, she continued to be depressed. She was taking her medications as directed. She noted that the depression kept getting worse leading to worsening of suicidal thoughts. The patient noted that couple of days ago she tried to hang herself from the door knob. The patient finally decided to call the EMS. Because she does not want to kill herself. She reported symptoms of lack of motivation, not eating, crying spells, sadness, loss of lethargy, personal neglect, loss of interest, inability to enjoy any activity, fluctuating sleep, lack of appetite, low concentration and attention, worthlessness, hopelessness, and suicidal thoughts. The patient noted that she gets tired and lays on the couch. The patient reported that she is still entertaining suicidal thoughts but stated that she will not do anything. She wants treatment get better. Past Psychiatric History: The patient has had two psychiatric admissions, in the past. She was admitted to this hospital in a similar state last month. Before that she was in [facility]. She has no H/O of previous suicidal attempts. As per patient, she has had suicidal thoughts all her life. The patient noted that she has never sought any psychiatric treatment as an out-pt. She goes to her PCP for medications. She does not see a therapist either as an out-pt. Past Medication History: Wellbutrin, Ridgetop, Cymbalta, Zoloft, Seroquel. Currently, she is on Effexor 225 mg Daily Abilify 15 mg daily. The patient noted, Seroquel knocked me out Leading questions: The patient admitted to Depression and Anxiety. Admitted to SI with plan. No HI. Denied symptoms consistent with psychosis Drugs and alcohol history: Marijuana abuse. She has reduced consumption of Marijuana to one joint per week. Denied any Alcohol abuse or other drugs. Tobacco use: She smokes one pack a day. Past Medical history: Asthma. Family History of Psychiatric Disorder: The patients father and mother both suffered from psychiatric illness. The patient does not the details. His Dad was on Prozac when committed suicide. Her mother also committed suicide. Her father shot himself and mother over dosed. The feels that all her siblings have depression. She does not know the details. Social History and Family History: The patient was born and raised in [place], [place]. She grew-up with 4 siblings. She finished GED. Her longest job is at [employer] for few years. She is single. She has no children. She had one miscarriage at age 20. OTC: None. Allergies: No Objective: MSE: Alert and attentive. Orientation times three Dressed and Groomed: Appropriately. Pleasant and cooperative. Psychomotor Activity: Reduced. Speech: Normal in tone, quality, and underproductive. Mood: Depressed and anxiety Affect: withdrawn, subdued, and blunted. SI or HI: She reports suicidal ideations. Denies HI. Perceptual disturbance: None. Thought Content: No paranoia or other delusional thinking noted. Thought Process: Normal. Cognition: Intact Judgment and Insight: Poor AIMS: Normal Labs: Reviewed with patient. Diagnosis: Major depressive Disorder, severe, Recurrent with suicidal thoughts. Plan and Recommendations: Continue current Medications. Monitor MS and side effects of medications and adjust medications accordingly. Provide supportive psychotherapy and psychoeducation. The patient provided Substance abuse counseling. Smoke cessation therapy. The patient to see a therapist on a regular basis once a week/ attend [facility]. CBC with Diff, CMP, TSH, Lipid Profile, HbA1c, EKG, Medication Consent with explanation of risk/benefits and side effects: Explained and obtained.
--- NOTE | 2024-03-03 16:16 | P.PN ---
Progress Note - Text Progress Note Date: 03/03/24 In-Patient Follow-up Chief Complaint: we need to get my medications changed Subjective: The patient noted that se has not been doing. She is laying bed most of the time. She remains very depressed. She still has suicidal thoughts. She has contracted to inform staff if she gets worse. The patient has not been going to the groups. She does not have motivated to get out of the bed. She talked about her medications. She will be started on Lamictal 25 mg po daily. The risk/befits and side effects explained. The patient informed to monitor for rash. Overall, no change is MS. Leading questions: The patient denied Depression and Anxiety. Admitted to SI. Denied HI. Denied symptoms consistent with psychosis Sleep and Appetite: She is eating better. Her sleep is fair. Behavioral Changes: None PRN meds/isolation/restraints/ change in status: None Change in medical condition: No change. Change in medications: No change. Side effects from Medications: None. Objective- MSE: Alert and attentive. Orientation times three. Dressed and Groomed: Appropriately. Pleasant and cooperative. Psychomotor Activity: Normal. Speech: Normal in tone, quality, and quantity. Mood: Depressed. Affect: Appropriate to the mood. SI or HI: None. Perceptual disturbance: None. Thought Content: No paranoia or other delusional thinking noted. Thought Process: Normal. Cognition: Intact Judgment and Insight: poor AIMS: Normal. Labs: Reviewed with patients. Diagnosis: No change Plan and recommendation: Add Lamictal 25 mg daily. Rest of the medication as before. Monitor MS and side effects of the medication and adjust medications accordingly. Provide supportive psychotherapy. The patient provided psychoeducation. Smoke cessation therapy. The patient to continue attending the [facility]. Medication Consent with explanation of risk/benefits and side effects: Explained and obtained.
[2024-03-04] MEDS: lamoTRIgine 25 MG TAB PO SCH (08:36)
--- NOTE | 2024-03-04 12:40 | P.PN ---
Subjective Progress Note Date: 03/04/24 Patient Name: Cheyenne Lambert Date of : 89 Patient Status: Inpatient Attending Provider: Prakash Blake Date: 03/04/24 Initialization Date: 03/03/24 16:15 In-Patient Follow-up Chief Complaint: I feel about the same Subjective: The patient noted that that she is still depressed and is doing about the same . She is laying bed most of the time. She remains very depressed. She still has suicidal thoughts.was states that she would not do anything to harm herself in the hospital She stated that she put a nose around her neck She stated that she passed out and does not remember how she came to the hospital She has contracted to inform staff if she gets worse. The patient has not been going to the groups. She does not have motivated to get out of the bed. She talked about her medications. She has been started on Lamictal 25 mg po daily. The risk/befits and side effects explained. The patient informed to monitor for rash. Overall, no change is MS. Leading questions: The patient abuse to Depression and Anxiety. Admitted to SI.but denies any plans and denies wanting to do anything, herself in the hos pital and wants to get help Denied HI. Denied symptoms consistent with psychosis Sleep and Appetite: She is eating better. Her sleep is fair. Behavioral Changes: None PRN meds/isolation/restraints/ change in status: None Change in medical condition: No change. Change in medications: No change. Side effects from Medications: None. Objective- MSE: Alert and attentive. Orientation times three. Dressed and Groomed: Appropriately. Pleasant and cooperative. Psychomotor Activity: Normal. Speech: Normal in tone, quality, and quantity. Mood: Depressed. Affect: Appropriate to the mood. SI or HI: None. Perceptual disturbance: None. Thought Content: No paranoia or other delusional thinking noted. Thought Process: Normal. Cognition: Intact Self-esteem and confidence remains low Judgment and Insight: poor AIMS: Normal. Labs: Reviewed with patients. Diagnosis: No change Plan and recommendation:continue with Dr. Blake s recommendations Add Lamictal 25 mg daily. Rest of the medication as before. Monitor MS and side effects of the medication and adjust medications accordingly. Provide supportive psychotherapy. The patient provided psychoeducation. Smoke cessation therapy. The patient to continue attending the [facility]. Medication Consent with explanation of risk/benefits and side effects: Explained and obtained. Kristian Whiteside M.D. Objective - Vital Signs Vital signs: Vital Signs Temp 98.4 F 03/04/24 06:16 Pulse 69 03/04/24 06:16 Resp 16 03/04/24 06:16 BP 106/62 03/04/24 06:16 Pulse Ox 98 03/04/24 06:16 FiO2 - Labs CBC & Chem 7: 03/01/24 16:42 03/01/24 16:42
--- NOTE | 2024-03-05 10:59 | P.PN ---
Subjective Progress Note Date: 03/05/24 Patient Name: Cheyenne Lambert Date of : 89 Patient Status: Inpatient Attending Provider: Prakash Blake Date: 03/05/24 Initialization Date: 03/03/24 16:15 In-Patient Follow-up Chief Complaint: I am not feeling much better Subjective: The patient noted that that she is still depressed and is doing about the same .When seen today patient was laying comfortably in her bed and reading a book She is cooperative during the interview Patient however gives some flippant answers initially where she stated that she is doing fine however on further probing patient states that she is doing about the same She denies any suicidal plans but states that she still feels helpless and hopeless The patient has not been going to the groups. She does not have motivated to get out of the bed. She talked about her medications. She has been started on Lamictal 25 mg po daily. Sleep and Appetite: She is eating better. Her sleep is fair. Behavioral Changes: None PRN meds/isolation/restraints/ change in status: None Change in medical condition: No change. Change in medications: No change. Side effects from Medications: None. Objective- MSE: Alert and attentive. Orientation times three. Dressed and Groomed: Appropriately. Pleasant and cooperative. Psychomotor Activity: Normal. Speech: Normal in tone, quality, and quantity. Mood: Depressed. Affect: Appropriate to the mood. SI or HI: None. Perceptual disturbance: None. Thought Content: No paranoia or other delusional thinking noted. Thought Process: Low self-esteem and confidence admits feeling helpless and hopeless Cognition: Intact Self-esteem and confidence remains low Judgment and Insight: poor AIMS: Normal. Labs: Reviewed with patients. Diagnosis:Major depressive disorder recurrent chronic with acute exacerbation Rule out bipolar disorder depressed type Personality disorder with borderline traits Plan and recommendation:continue with Dr. Blake s recommendations Add Lamictal 25 mg daily. Rest of the medication as before. Monitor MS and side effects of the medication and adjust medications accordingly. Provide supportive psychotherapy. The patient provided psychoeducation. Smoke cessation therapy. The patient to continue attending the [facility]. Medication Consent with explanation of risk/benefits and side effects: Explained and obtained. Kristian Whiteside M.D. Objective - Vital Signs Vital signs: Vital Signs Temp 98.5 F 03/05/24 06:00 Pulse 70 03/05/24 06:00 Resp 20 03/05/24 06:00 BP 111/59 03/05/24 06:00 Pulse Ox 98 03/05/24 06:00 FiO2 Intake & Output 03/04/24 03/05/24 03/05/24 18:59 06:59 18:59 Weight 89.4 kg - Labs CBC & Chem 7: 03/01/24 16:42 03/01/24 16:42
--- NOTE | 2024-03-06 09:03 | P.CONS ---
History of Present Illness - Reason for Consult Consult date: 03/03/24 - Chief Complaint suicidal - History of Present Illness Cheyenne Lambert is a 34 yo F with PMH of major depression who presented to the ED with suicidal ideation and a plan to hang herself from her doorknob. She states that after her last inpatient psychiatric admission she did not feel any real improvement and had not been following with [facility] or with therapy. She states she has continued to smoke MJ and her relationship ended. She denies any physical complaints today. On initial presentation labs significant for TSH of 0.16, T3 and T4 wnl. Review of Systems All systems: negative Constitutional: Denies chills, Denies fever Eyes: denies blurred vision, denies pain Ears, nose, mouth and throat: Denies headache, Denies sore throat Cardiovascular: Denies chest pain, Denies shortness of breath Respiratory: Denies cough Gastrointestinal: Denies abdominal pain, Denies diarrhea, Denies nausea, Denies vomiting Genitourinary: Denies dysuria, Denies hematuria Musculoskeletal: Denies myalgias Integumentary: Denies pruritus, Denies rash Neurological: Denies numbness, Denies weakness Psychiatric: Reports anhedonia, Reports suicidal ideation, Denies anxiety, Denies depression Endocrine: Denies fatigue, Denies weight change Past Medical History Past Medical History: Asthma History of Any Multi-Drug Resistant Organisms: None Reported Past Surgical History: No Surgical Hx Reported Past Anesthesia/Blood Transfusion Reactions: No Reported Reaction Past Psychological History: Anxiety, Depression Smoking Status: Current every day smoker, Vaper Past Alcohol Use History: None Reported Past Drug Use History: Marijuana - Past Family History Mother Family Medical History: No Reported History Additional Family Medical History / Comment(s): Hx of depression, committed suicide Father Family Medical History: No Reported History Additional Family Medical History / Comment(s): Hx of depression, committed devi icide Medications and Allergies Home Medications Medication Instructions Recorded Confirmed Type Levonorgestrel-Ethinyl Estradiol 1 tab PO DAILY 01/09/24 03/01/24 History (Sronyx) 0.1-20mg-Mcg Tabs Omeprazole 20 mg PO DAILY 01/09/24 03/01/24 History ARIPiprazole [Abilify] 10 mg PO HS 30 Days #30 tab 02/14/24 03/01/24 Rx Mirtazapine [Remeron] 15 mg PO HS 30 Days #30 tab 02/14/24 03/01/24 Rx Venlafaxine HCl [Effexor XR] 225 mg PO DAILY 30 Days #30 tab 02/14/24 03/01/24 Rx Allergies Allergy/AdvReac Type Severity Reaction Status Date / Time No Known Allergies Allergy Verified 03/01/24 15:20 Physical Exam Gen: well developed, well nourished, NAD HEENT: NC/AT, mmm Neck: supple, no JVD or thyromegaly CV: RRR, no murmur Lungs: normal effort, clear throughout Abd: soft, nontender non distended Skin: warm and dry Results CBC & Chem 7: 03/01/24 16:42 03/01/24 16:42 Assessment and Plan Plan: Suicidal ideation. Major depression, severe. Management per psychiatry Low TSH. T4 and T3 wnl. Will recheck as an outpatient MJ abuse. cessation counseling
--- NOTE | 2024-03-06 21:15 | P.PN ---
Progress Note - Text Progress Note Date: 03/06/24 Psychiatric Evaluation Identifying Data: Ms. Schwartz is 40 years old, , W.F., who lives in [place], [place] in a house with her . Chief Complaint: I want to get my bipolar stabilized. History of Psychiatric Illness- Current psychiatric History: The patient noted that she came to the hospital because she needed help and was getting very depressed and suicidal. The patient noted that she started getting depressed in past 6 months due to different stressor. She called different places for an appointment but every place had a long waitlist. The patient started self-medicating with Alcohol. This did not help her and she continued getting worse and eventually to come to the hospital to seek help. She indicated that she was going was going to [facility] through [facility]. She was prescribed Suboxone and Antabuse. She had stopped taking Antabuse for couple of days. Before drinking. She had no psychiatric treatment since the age of 16. Before that she was diagnosed with ADHD and Bipolar disorder. She was given, Wellbutrin, Cymbalta, and Prozac. None of these medications worked. She quit taking treatment age 16. She has no history of past psychiatric treatment. She no History of SI or HI Her current symptoms consist of emotional instability. She noted that some days get up in good mood with interest in doing things around home, taking kids to the school and stays in good mood. Some day she gets up with depressed mood with interest in doing anything, she does not take shower, feels sad, unmotivated, and lazy. She does not take kids to the school, gets irritable. The patient stated that she in up mood 2-3 weeks and down 1 week in a month. She has been having mood swings since her teenage. These mood swings have been getting since started having children. Past Psychiatric History: As stated above. Past Medication History: Wellbutrin, Cymbalta, Prozac. She did not respond to these medications. Leading questions: The patient admitted to Depression and Anxiety. Denied SI or HI. Denied symptoms consistent with psychosis Drugs and alcohol history: The patient noted abusing Alcohol and opioids. The patient noted that she has had Alcohol withdrawal in the past. She noted having Alcohol withdrawal seizure three weeks. She went to [facility] ER. She discharged with Librium and Lamictal from the ER. 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 She was prescribed Antabuse 1 weeks ago. Tobacco use: Vapes Past Medical history: None Family History of Psychiatric Disorder: The patient denied. Social History and Family History: The patient was born and raised [place]; [place] She grew up with her brother. She finished HS. She got her associates in Psychology. She has been for 8 years. She has 5 kids. OTC: None Allergies: None Objective: MSE: Alert and attentive. Orientation times three Dressed and Groomed: Appropriately. Pleasant and cooperative. Psychomotor Activity: Normal. Speech: Normal in tone, quality, and quantity. Mood: Depressed and anxious. Affect: Consistent with mood. SI or HI: None. Perceptual disturbance: None. Thought Content: No paranoia or other delusional thinking noted. Thought Process: Normal. Cognition: Intact Judgment and Insight: Poor. AIMS: Normal Labs: Ordered. Diagnosis: Bipolar Disorder Type II Borderline Personality Traits Plan and Recommendations: Zoloft 50 mg daily, Lamictal 25 mg po daily. Monitor MS and side effects of medications and adjust medications accordingly. Provide supportive psychotherapy and psychoeducation.
--- NOTE | 2024-03-06 21:21 | P.PN ---
Progress Note - Text Progress Note Date: 03/06/24 In-Patient Follow-up Chief Complaint: there is no change Subjective: The patient noted that she is feeling the same. She reported that she has been taking Effexor since last month with no benefit. She reports no motivation, interest, energy and feels depressed. The patient noted that she is trying to attend groups and be more active. She reported no rash from Lamictal. The patients Lamictal to be increased to 50 mg. and Effexor to be tapered off slowly. Suggested to start decreasing the Effexor. The patient agreed. Alternated medications discussed. The patient opted for Pristiq. She will be started on Pristiq after the Effexor is tapered off to 75 mg. She still has s uicidal thoughts. She has contracted to inform staff if she gets worse. The patient has not been going to the groups. Overall, no change is MS. Leading questions: The patient admitted to Depression and Anxiety. Admitted to SI. Denied HI. Denied symptoms consistent with psychosis Sleep and Appetite: fine Behavioral Changes: None PRN meds/isolation/restraints/ change in status: None Change in medical condition: No change. Change in medications: No change. Side effects from Medications: None. Objective- MSE: Alert and attentive. Orientation times three. Dressed and Groomed: Appropriately. Pleasant and cooperative. Psychomotor Activity: Normal. Speech: Normal in tone, quality, and quantity. Mood: Depressed and anxious. Affect: Appropriate to the mood. SI or HI: None. Perceptual disturbance: None. Thought Content: No paranoia or other delusional thinking noted. Thought Process: Normal. Cognition: Intact Judgment and Insight: poor AIMS: Normal. Labs: Reviewed with patients. Diagnosis: No change Plan and recommendation: Increase Lamictal to 50 mg daily. Decrease Effexor to 150 mg daily. Monitor MS and side effects of the medication and adjust medications accordingly. Provide supportive psychotherapy. The patient provided psychoeducation. Smoke cessation therapy. The patient to continue attending the [facility] activities. Medication Consent with explanation of risk/benefits and side effects: Explained and obtained.
[2024-03-07] MEDS: lamoTRIgine 25 MG TAB PO SCH (08:37)
--- NOTE | 2024-03-07 16:28 | P.PN ---
Progress Note - Text Progress Note Date: 03/07/24 In-Patient Follow-up Chief Complaint: I have been reading pretty much Subjective: The patient noted that she does not feel any different than before. She remains depressed and stays in her room and read books. The patient isolates herself. She went to group yesterday but her participation was minimal. Today she did not go to any groups. The patient is unchanged. Her Effexor is reduced to 150 mg daily. She will be started on Pristiq 50 mg once the dose is down to 75 mg. Leading questions: The patient denied /admitted to Depression and Anxiety. Denied SI or HI. Denied symptoms consistent with psychosis Sleep and Appetite: Fine Interim History: Behavioral Changes: PRN meds/isolation/restraints/ change in status: None Change in medical condition: No change. Change in medications: No change. Side effects from Medications: None. Objective- MSE: Alert and attentive. Orientation times three. Dressed and Groomed: Appropriately. Pleasant and cooperative. Psychomotor Activity: Normal. Speech: Normal in tone, quality, and quantity. Mood: Depressed Affect: Withdrawn and constricted SI or HI: None. Perceptual disturbance: None. Thought Content: No paranoia or other delusional thinking noted. Thought Process: Normal. Cognition: Intact Judgment and Insight: Poor AIMS: Normal. Labs: Reviewed with patients. Diagnosis: No change Plan and recommendation: Continue current Medications. Monitor MS and side effects of medications and adjust medications accordingly. Provide supportive psychotherapy. The patient provided psychoeducation. The patient provided Substance abuse counseling. Smoke cessation therapy. The patient to continue attending the [facility] activities. Lipid Profile, HbA1c, EKG, Test - ordered. Medication Consent with explanation of risk/benefits and side effects: Explained and obtained.
[2024-03-08] MEDS: VENLAFAXINE HCL ER 75 MG CAP PO SCH (08:35)
--- NOTE | 2024-03-08 12:27 | P.PN ---
Progress Note - Text Progress Note Date: 03/08/24 In-Patient Follow-up Chief Complaint: I am not any different Subjective: The patient noted that she does not feel any different than before. She noted that she has no energy, motivation or interest in doing anything. She continues to be isolated. Her participation in the groups is poor. She is very depressed today. The patient noted that her boyfriend wants to leave her. She stated that my depression is bring her down. She was very sad. She was sobbing most of the session. The patient noted that they have been together for 7 years. She does not have anybody else in her life. Her one brother is in snf and other two [place] She has no contacts with them. The patient was provided support. Suggested to seek couples counseling after discharge. She was visibly distressed during this session. She continues to have suicidal thoughts. Leading questions: The patient admitted to Depression and Anxiety. Admits to SI. Denied HI. Denied symptoms consistent with psychosis Sleep and Appetite: fair Interim History: Behavioral Changes: PRN meds/isolation/restraints/ change in status: None Change in medical condition: No change. Change in medications: No change. Side effects from Medications: None. Objective- MSE: Alert and attentive. Orientation times three. Dressed and Groomed: Appropriately. Pleasant and cooperative. Psychomotor Activity: Normal. Speech: Normal in tone, quality, and quantity. Mood: Depressed Affect: Withdrawn and constricted SI or HI: The patient continues to suicidal. Denied HI. Perceptual disturbance: None. Thought Content: No paranoia or other delusional thinking noted. Thought Process: Normal. Cognition: Intact Judgment and Insight: Poor AIMS: Normal. Labs: Reviewed with patients. Diagnosis: No change Plan and recommendation: Continue current Medications. Reduce Effexor to 75mg. Add Pristiq 25 mg po daily. Monitor MS and side effects of medications and adjust medications accordingly. Provide supportive psychotherapy. The patient provided psychoeducation. The patient provided Substance abuse counseling. Smoke cessation therapy. The patient to continue attending the [facility] activities. Lipid Profile, HbA1c, EKG, Test - ordered. Medication Consent with explanation of risk/benefits and side effects: Explained and obtained.
[2024-03-08 15:59] LABS: Chol/HDL Ratio 4.53 Ratio; HDL Cholesterol 58.3 mg/dL (40.00-60.00); VLDL Calculation 82.8 mg/dL (5.00-40.00)
--- NOTE | 2024-03-09 20:24 | P.PN ---
Progress Note - Text Progress Note Date: 03/09/24 In-Patient Follow-up Chief Complaint: I feel a little better Subjective: The patient noted that she is feeling better. When she was asked what has improved, the patient was unable explain. The patient still has thoughts of suicide without plan. The patient noted that on the outside she entertains thoughts of hanging herself or putting her head air fryer. She has not been attending groups. She went for one group today. The patients behavior has not changed. She continues to isolate herself. She did inquire about ketamine and ECT treatments. She was explained that both are options for chronic suicidality but we do not do ECT here and ketamine is an out-pt treatment and is given in ER acute suicidality. Leading questions: The patient admitted to Depression and Anxiety. Admitted to SI without plan Denied HI. Denied symptoms consistent with psychosis Sleep and Appetite: Good. Interim History: Behavioral Changes: PRN meds/isolation/restraints/ change in status: None. Change in medical condition: No change. Change in medications: No change. Side effects from Medications: None. Objective- MSE: Alert and attentive. Orientation times three. Dressed and Groomed: Appropriately. Pleasant and cooperative. Psychomotor Activity: Normal. Speech: Normal in tone, quality, and underproductive. Mood: Depressed Affect: Consistent with mood. SI or HI: None. Perceptual disturbance: None. Thought Content: No paranoia or other delusional thinking noted. Thought Process: Normal. Cognition: Intact Judgment and Insight: Poor AIMS: Normal. Labs: No new labs. Diagnosis: No change. Plan and recommendation: Continue current Medications. Monitor MS and side effe cts of medications and adjust medications accordingly. Provide supportive psychotherapy. Medication Consent with explanation of risk/benefits and side effects: Explained and obtained.
[2024-03-10] MEDS: VENLAFAXINE HCL ER 75 MG CAP PO SCH (08:34)
[2024-03-10] MEDS: DESVENLAFAXINE SUCCINATE 50 MG TAB.ER.24H PO SCH (12:09)
--- NOTE | 2024-03-10 16:46 | P.PN ---
Progress Note - Text Progress Note Date: 03/10/24 In-Patient Follow-up Chief Complaint: I am very depressed: Subjective: The patient not that her depression is bad. She worries about being alone. The patient has been living with her boyfriend for 7 years. She feels lost. She continues to be negativistic and pessimistic. She remains in her room most of the time her group attendance has improved but she is not attending all the groups. She is now on Pristiq. She got one dose today. She continues to express suicidal thoughts. Leading questions: The patient admitted to Depression and Anxiety. She admits to suicidal thoughts. Denies Homicidal thoughts. Denied symptoms consistent with psychosis Sleep and Appetite: Sleep impaired. Appetite is adequate. Interim History: Behavioral Changes: PRN meds/isolation/restraints/ change in status: None Change in medical condition: No change. Change in medications: No change. Side effects from Medications: None. Objective- MSE: Alert and attentive. Orientation times three. Dressed and Groomed: Appropriately. Pleasant and cooperative. Psychomotor Activity: Reduced Speech: Normal in tone, quality, and underproductive. The patient does initiate conversation. Mood: Sad Affect: Blunted and withdrawn SI or HI: Admits to suicidal thoughts. Perceptual disturbance: None. Thought Content: No paranoia or other delusional thinking noted. Thought Process: Normal. Cognition: Intact Judgment and Insight: Poor AIMS: Normal. Labs: No new labs. Diagnosis: No change. Plan and recommendation: Continue current Medications. Monitor MS and side effects of medications and adjust medications accordingly. Provide supportive psychotherapy. The patient provided psychoeducation. The patient provided Substance abuse counseling. Smoke cessation therapy. The patient to continue attending the [facility] activities. . Medication Consent with explanation of risk/benefits and side effects: Explained and obtained.
[2024-03-11] MEDS: lamoTRIgine 100 MG TAB PO SCH (08:43)
[2024-03-11] MEDS: DESVENLAFAXINE SUCCINATE 50 MG TAB.ER.24H PO SCH (08:43)
--- NOTE | 2024-03-11 12:16 | P.PN ---
Progress Note - Text Progress Note Date: 03/11/24 Interval history: Patient was seen laying in her bed today reading a book and was directable and agreeable to speak with conventional underwriter. Patient continues to state that she is feeling somewhat depressed, claims that it is improving mildly. States that she does still have some fleeting thoughts of suicide however no plan. She claims that she is sleeping fairly at nighttime, not reporting any side effects or problems at this time. She is not interested in going to many groups mainly keeping herself on the unit, for meals. At this time patient denies any homicidal ideations intent or plan. Denies any Auditory or visual hallucinations. Patient denies any side effects from the medications and has been compliant with meds. Mental status exam: General Appearance: Patient appears to be wearing glasses, stated age is alert, directable, and cooperative. Laying in bed reading a book Behavior: No agitated behavior. Patient is calm and directable Speech: Patient's speech is fluent and nonpressured. Fairly concrete, soft tone Mood/Affect: Mood is improving mildly, affect is congruent and constricted. Suicidality/Homicidality: Patient denies having any suicidal or homicidal ideation intent or plan. Perceptions: Patient denies any auditory or visual hallucinations. Though content/process: There is no evidence of any delusional thought content and thought process is linear and goal-directed., [place] Memory and concentration: AOX3, grossly intact for the purposes of this session Judgment and insight: improving mildly Assessment/Plan: Continue with current diagnosis. Patient continues to meet criteria for inpatient psychiatric admission for symptom stabilization and safety. Patient will be maintained on current psychotropic medication regimen. Monitor for medication compliance and for any psychotropic medication side effects. Will continue to monitor ongoing response to treatment. Encouraged participation in milieu.
--- NOTE | 2024-03-12 10:53 | P.PN ---
Progress Note - Text Progress Note Date: 03/12/24 Interval history: Patient was seen laying in her bed today reading a book and was directable and agreeable to speak with insurance underwriter sales. Patient continues to mainly keep herself on the unit. States that she is feeling a bit anxious today, claims that her mood is mildly improving since yesterday. She continues to have a flat affect. She states that she still having problems with Remeron and was offered other medications to help her with sleep, she was agreeable to try doxepin for tonight. States that she does still have some fleeting thoughts of suicide however no plan. She claims that she is sleeping fairly at nighttime, not reporting any side effects or problems at this time. She is not interested in going to many groups mainly keeping herself on the unit, for meals. At this time patient denies any homicidal ideations intent or plan. Denies any Auditory or visual hallucinations. Patient denies any side effects from the medications and has been compliant with meds. Mental status exam: General Appearance: Patient appears to be wearing glasses, stated age is alert, directable, and cooperative. Laying in bed, in the isolative Behavior: No agitated behavior. Patient is calm and directable Speech: Patient's speech is fluent and nonpressured. Fairly concrete, soft tone, improving mildly Mood/Affect: Mood is improving mildly, affect is congruent and constricted. Suicidality/Homicidality: Patient denies having any suicidal or homicidal ideation intent or plan. Perceptions: Patient denies any auditory or visual hallucinations. Though content/process: There is no evidence of any delusional thought content and thought process is linear and goal-directed., [place] Memory and concentration: AOX3, grossly intact for the purposes of this session Judgment and insight: improving mildly Assessment/Plan: Continue with current diagnosis. Patient continues to meet criteria for inpatient psychiatric admission for symptom stabilization and safety. Patient will be maintained on current psychotropic medication regimen, with the exception of discontinuing Remeron due to possible ineffectiveness/side effect and replace with doxepin 10 mg nightly for sleep/mood. Monitor for medication compliance and for any psychotropic medication side effects. Will continue to monitor ongoing response to treatment. Encouraged participation in milieu.
[2024-03-12] MEDS: DOXEPIN 10 MG CAP PO SCH (21:34)
[2024-03-13 13:37] VITALS: BMI 36.8
--- NOTE | 2024-03-13 21:51 | P.PN ---
Progress Note - Text Progress Note Date: 03/13/24 In-Patient Follow-up Chief Complaint: I can say, I am great and great and grand but I am not Subjective: The patient stated that she continues to feel depressed. On VAS, the patient rated herself at 3-4, 0 being worse and 10 being the best. The patient did indicate that her suicidality is better but she is still entreating them. She has no plans to hurt herself on the unit. She feels safe here but does not trust herself on the outside. The patient is attending some of the groups. She spends a lot of time in her room reading her books. The patients interaction with peers is fine but she secludes herself. The patient noted that she has cold sweats at night. She noted that it is bad. She gets soaked and wakes uo. This has been going on for a longtime. She believes it is due to Remeron. She indicated that it works fine for sleep. Discussed with patient that this side effects could be due to Effexor and Pristiq. The patient had never mentioned this before. Will consider Luvox 50 mg and titrate th dose up. Monitoring the MS and side effects. Discontinue Pristiq. Explained pros and cons, side effects/risk and benefits. The patient understood and agreed. Leading questions: The patient admitted to Depression and Anxiety. Admitted to suicide denied HI. Denied symptoms consistent with psychosis Sleep and Appetite: Sleep is impaired. Her appetite is good. Interim History: Behavioral Changes: PRN meds/isolation/restraints/ change in status: None Change in medical condition: No change. Change in medications: No change. Side effects from Medications: None. Objective- MSE: Alert and attentive. Orientation times three. Dressed and Groomed: Adequately Pleasant and cooperative. Psychomotor Activity: Reduced. Speech: Normal in tone, quality, and underproductive. Mood: Depressed and anxious. Affect: Blunted and withdrawn. SI or HI: None. Perceptual disturbance: None. Thought Content: No paranoia or other delusional thinking noted. Thought Process: Normal. Cognition: Intact Judgment and Insight: Poor. AIMS: Normal. Labs: No new labs. Diagnosis: No change. Plan and recommendation: D/C Pristiq. Initiate Luvox 25mg po daily. Increase Lamictal t0 125 mg daily Monitor MS and side effects of medications and adjust medications accordingly. Provide supportive psychotherapy. The patient provided psychoeducation. The patient provided Substance abuse counseling. Smoke cessation therapy. The patient to continue attending the morrison activities. Medication Consent with explanation of risk/benefits and side effects: Explained and obtained.
[2024-03-14] MEDS: lamoTRIgine 100 MG TAB PO SCH (08:33)
--- NOTE | 2024-03-14 14:14 | P.PN ---
Progress Note - Text Progress Note Date: 03/14/24 In-Patient Follow-up Chief Complaint: I can say, I am fabulous but I am not Subjective: The patient stated that she continues to feel depressed. She did say that there mild improvement but not much since yesterday. The patient noted that she is going to the groups. And confining herself less in to the room. She tolerated Luvox without any side effects. She agreed to go up on dose. Overall, meager improvement in Depression and suicidality. Leading questions: The patient admitted to Depression and Anxiety. Admitted to suicide denied HI. Denied symptoms consistent with psychosis Sleep and Appetite: Sleep unchanged. Her appetite is good. Interim History: Behavioral Changes: PRN meds/isolation/restraints/ change in status: None Change in medical condition: No change. Change in medications: No change. Side effects from Medications: None. Objective- MSE: Alert and attentive. Orientation times three. Dressed and Groomed: Adequately Pleasant and cooperative. Psychomotor Activity: Reduced. Speech: Normal in tone, quality, and underproductive. Mood: Depressed and anxious. Affect: Blunted and withdrawn. SI or HI: None. Perceptual disturbance: None. Thought Content: No paranoia or other delusional thinking noted. Thought Process: Normal. Cognition: Intact Judgment and Insight: Poor. AIMS: Normal. Labs: No new labs. Diagnosis: No change. Plan and recommendation: D/C Pristiq. Initiate Luvox 50mg po daily. Increase Lamictal to 150 mg daily Monitor MS and side effects of medications and adjust medications accordingly. Provide supportive psychotherapy. The patient provided psychoeducation. The patient provided Substance abuse counseling. Smoke cessation therapy. The patient to continue attending the morrison activities. Medication Consent with explanation of risk/benefits and side effects: Explained and obtained.
--- NOTE | 2024-03-15 16:24 | P.PN ---
Progress Note - Text Progress Note Date: 03/15/24 In-Patient Follow-up Chief Complaint: I am feeling a little better Subjective: The patient stated that she continues to feel depressed but depression is improving. She noted that she is having occasional suicidal thoughts without plan. The patient little spends lot of time in her bedroom however, she is going to the groups and is trying to interact in with peers. The patient tolerated Luvox 50 mg without any side effects. She did not complain of night sweats spontaneously. He r dose to be increased to 100mg tomorrow. The patient agreed with recommendation. The patient was encouraged to go to all the groups and spend more time out of room. The patient noted that she will do her best. Overall, the patient is showing improvement. improvement in Depression and suicidality. Leading questions: The patient admitted to Depression and Anxiety. Admitted to suicide. Denied HI. Denied symptoms consistent with psychosis Sleep and Appetite: Sleep better. Her appetite is good. Interim History: Behavioral Changes: PRN meds/isolation/restraints/ change in status: None Change in medical condition: No change. Change in medications: No change. Side effects from Medications: None. Objective- MSE: Alert and attentive. Orientation times three. Dressed and Groomed: Adequately Pleasant and cooperative. Psychomotor Activity: Reduced. Speech: Normal in tone, quality, and underproductive. Mood: Depressed and anxious. Affect: Blunted and withdrawn. SI or HI: None. Perceptual disturbance: None. Thought Content: No paranoia or other delusional thinking noted. Thought Process: Normal. Cognition: Intact Judgment and Insight: Poor. AIMS: Normal. Labs: No new labs. Diagnosis: No change. Plan and recommendation: Increase Luvox 100 mg po daily. Increase Lamictal to 200 mg daily Monitor MS and side effects of medications and adjust medications accordingly. Provide supportive psychotherapy. The patient provided psychoeducation. The patient provided Substance abuse counseling. Smoke cessation therapy. The patient to continue attending the morrison activities. Medication Consent with explanation of risk/benefits and side effects: Explained and obtained.
[2024-03-16 07:30] VITALS: RESP 18
--- NOTE | 2024-03-16 20:58 | P.PN ---
Progress Note - Text Progress Note Date: 03/16/24 In-Patient Follow-up Chief Complaint: I am feeling good Subjective: The patient stated t feeling fine today. She thinks her depression much improved than before. When patient was asked, if she is having suicidal thoughts, the patient responded, I am not suicidal now. She has some passive wish of not being here but firmly denied being suicidal. The patient stated that she has attended most of the groups yesterday. She intends to attend groups today. She noted that is not staying in her room all the time. The patient has been compliant treatment recommendations. She is taking her medications as prescribed. She not experienced any side effects from medications. her interaction with staff and peers has improved. Overall, patient has shown a good improvement in last 2-3 days. Will increase the dose of Luvox to 100 mg at bedtime. Leading questions: The patient admitted to Depression and Anxiety. Denied SI or HI. Denied symptoms consistent with psychosis Sleep and Appetite: Sleep better. Her appetite is good. Interim History: Behavioral Changes: PRN meds/isolation/restraints/ change in status: None Change in medical condition: No change. Change in medications: No change. Side effects from Medications: None. Objective- MSE: Alert and attentive. Orientation times three. Dressed and Groomed: Adequately Pleasant and cooperative. Psychomotor Activity: Reduced. Speech: Normal in tone, quality, and underproductive. Mood: I feel good Affect: Consistent with mood. She appeared in better spirits SI or HI: None. Perceptual disturbance: None. Thought Content: No paranoia or other delusional thinking noted. Thought Process: Normal. Cognition: Intact Judgment and Insight: Poor. AIMS: Normal. Labs: No new labs. Diagnosis: No change. Plan and recommendation: Increase Luvox 100 mg po daily. Monitor MS and side effects of medications and adjust medications accordingly. Provide supportive psychotherapy. The patient provided psychoeducation. The patient provided Substance abuse counseling. Smoke cessation therapy. The patient to continue attending the morrison activities. Medication Consent with explanation of risk/benefits and side effects: Explained and obtained.
[2024-03-17 07:33] VITALS: BP 105/59; PULSE 102; TEMP 98.7
--- NOTE | 2024-03-17 17:01 | P.DS ---
Providers Date of admission: 03/01/24 19:08 Expected date of discharge: 03/17/24 Attending physician: Prakash Blake MD Consults: 03/01/24 19:31 Consult Physician Routine Consulting Provider: León Drummond Consult Reason/Comments: H&P Do you want consulting provider notified?: Yes Primary care physician: León Drummond MD - Discharge Diagnosis(es) (1) Major depressive disorder, recurrent severe without psychotic features Status: Acute Priority: High Hospital Course: Discharge Summary HPI: Identifying Data: Ms. Lambert is 34 years old, single W.F., who live in [place], [place] in an apartment with her boyfriend. Chief Complaint: I am very depressed The patient noted that after discharge rom here last month, she continued to be depressed. She was taking her medications as directed. She noted that the depression kept getting worse leading to worsening of suicidal thoughts. The patient noted that couple of days ago she tried to hang herself from the door knob. The patient finally decided to call the EMS. Because she does not want to kill herself. She reported symptoms of lack of motivation, not eating, crying spells, sadness, loss of lethargy, personal neglect, loss of interest, inability to enjoy any activity, fluctuating sleep, lack of appetite, low concentration and attention, worthlessness, hopelessness, and suicidal thoughts. The patient noted that she gets tired and lays on the couch. The patient reported that she is still entertaining suicidal thoughts but stated that she will not do anything. She wants treatment get better. The patient has had two psychiatric admissions, in the past. She was admitted to this hospital in a similar state last month. Before that she was in [facility]. She has no H/O of previous suicidal attempts. As per patient, she has had suicidal thoughts all her life. The patient noted that she has never sought any psychiatric treatment as an out- pt. She goes to her PCP for medications. She does not see a therapist either as an out-pt. Hospital Course: After admission, the patient was provided with pharmacotherapy, morrison milieu, and individual therapy. The patient was first reinstated on her home medications. Her Effexor was weaned off and the patient was started on Pristiq. The patient revealed that she suffered from severe night sweats for a long time. The information led to d/c of Pristiq and Luvox was initiated. Lamictal was also added to the treatment. The patient started to improve slowly. She started attending groups and staying out of the room. Her depression improved and her suicidal thoughts abated. The patient felt that she has improved sufficiently to be discharged as an out-pt. she was finally discharged in a stable condition on 03/17/2024. MSE: Alert and attentive. Orientation times three Dressed and Groomed: Appropriately. Pleasant and cooperative. Psychomotor Activity: Reduced. Speech: Normal in tone, quality, and underproductive. Mood: Depressed and anxiety Affect: withdrawn, subdued, and blunted. SI or HI: She reports suicidal ideations. Denies HI. Perceptual disturbance: None. Thought Content: No paranoia or other delusional thinking noted. Thought Process: Normal. Cognition: Intact Judgment and Insight: Poor Diagnosis: Major depressive Disorder, severe, Recurrent with suicidal thoughts. Plan: The patient to be discharged today. The patient has attained good improvement since admission. He is stable to be followed as an outpatient. The patient is not suicidal or Homicidal. He does not pose any harm to self or others. The patient remains at a greater risk of self-harm or harm to others than general population on a chronic basis due to psychiatric illness and substance abuse. The patient will continue taking following medication post discharge. The importance of medication compliance and maintaining regular appointments at psychiatric out-pt and PCP clinic was explained and encouraged. The patient was also advised to seek substance counseling. The understood and agreed with the recommendations. The patient does not have possession to guns and weapons. concrete worker to arrange for and conduct family meeting to ensure safety upon discharge and answer any questions. The social welfare research worker to arrange for patients follow-up appointments at [facility] for psychiatric care along with follow-up with PCP. The patient provided psychoeducation. Advised to call 911 or go to nearest ED or call this hospital in case of acute worsening of symptomatology, severe side effects or having suicidal, homicidal thoughts and feeling unsafe at home. Health Concerns: FOLLOW UP:Per medical consult pt is to follow up with PCP r/t thyroid function. Patient Condition at Discharge: Stable Plan - Discharge Summary Discharge Rx Participant: No New Discharge Prescriptions: New lamoTRIgine [LaMICtal] 150 mg PO DAILY 15 Days #15 tab fluvoxaMINE [Luvox] 100 mg PO HS 15 Days #15 tab ARIPiprazole [Abilify] 10 mg PO HS 15 Days #15 tab Continue Mirtazapine [Remeron] 15 mg PO HS 30 Days #30 tab Discontinued ARIPiprazole [Abilify] 10 mg PO HS 30 Days #30 tab Venlafaxine HCl [Effexor XR] 225 mg PO DAILY 30 Days #30 tab Levonorgestrel-Ethinyl Estradiol (Sronyx) 0.1-20mg-Mcg Tabs 1 tab PO DAILY Omeprazole 20 mg PO DAILY Discharge Medication List ARIPiprazole [Abilify] 10 mg PO HS 15 Days #15 tab 03/17/24 [Rx] Mirtazapine [Remeron] 15 mg PO HS 30 Days #30 tab 03/17/24 [Rx] fluvoxaMINE [Luvox] 100 mg PO HS 15 Days #15 tab 03/17/24 [Rx] lamoTRIgine [LaMICtal] 150 mg PO DAILY 15 Days #15 tab 03/17/24 [Rx] Follow up Appointment(s)/Referral(s): Counseling[facility] [Other] - 03/20/24 2:00 pm (03/20/2024 @ 14:00 With Kevin Amaral) León Drummond MD [Primary Care Provider] - 1-2 days Patient Instructions/Handouts: How to Stop Smoking (DC), Depression (DC), Cannabis Abuse (DC) Activity/Diet/Wound Care/Special Instructions: Avoid the use of street drugs and alcohol. Take all medications as prescribed. When you are in need of refills on your medications, please contact your medical provider and/or outpatient psychiatrist/provider to have this done. Please go to your scheduled outpatient appointment for aftercare treatment. If symptoms return or become worse, call the crisis line at and/or go to the nearest emergency room for evaluation. National Suicide Hotline 005
== END 2024-03-17 12:48 | disposition home or self-care (01) | DRG 885 ==
LOC: EC 14:17 → 3MHU 19:08
PROVIDERS: ADMIT Psychiatry & Neurology Psychiatry; ATTEND Psychiatry & Neurology Psychiatry
DX: F33.2 Major depressive disorder, recurrent severe without psychotic features (principal); R45.851 Suicidal ideations; Z11.52 Encounter for screening for COVID-19; F41.9 Anxiety disorder, unspecified; F60.9 Personality disorder, unspecified; Z79.899 Other long term (current) drug therapy; Z81.8 Family history of other mental and behavioral disorders; F12.90 Cannabis use, unspecified, uncomplicated
CPT/HCPCS: 36415; 80053; 80061; 80306; 81001; 81025; 82075; 83036; 83721; 84443; 85025; 87635; 93005; 99285

== ENCOUNTER 2024-05-25 14:56 | Inpatient (IN) | payer OTHER, MEDICAID ==
--- NOTE | 2024-05-25 15:16 | ED ---
General Adult HPI - General Chief complaint: Psychiatric Symptoms Stated complaint: mental health Time Seen by Provider: 05/25/24 15:03 Source: patient Mode of arrival: ambulatory Limitations: no limitations - History of Present Illness Initial comments: Dictation was produced using [employer] dictation software. please excuse any grammatical, word or spelling errors. Chief Complaint: 34-year-old female with suicidal ideation History of Present Illness: Patient is a 34-year-old female she was with at her counselor's office today. Patient admitted to her counselor that she was suicidal. Patient states she wants to hang herself. Patient states she has been feeling suicidal for 6 months. Patient has no medical complaints. She did not make any attempt. Denies any visual auditory hallucinations. Patient denies any illicit drug use. The ROS documented in this emergency department record has been reviewed and confirmed by me. Those systems with pertinent positive or negative responses have been documented in the HPI. All other systems are other negative and/or noncontributory. - Related Data Home Medications Medication Instructions Recorded Confirmed Sronyx 0.1-20 Mg-Mcg Tab 1 tab PO DAILY 05/25/24 05/25/24 hydrOXYzine pamoate [Vistaril] 50 mg PO QID PRN 05/25/24 05/25/24 Previous Rx's Medication Instructions Recorded ARIPiprazole [Abilify] 10 mg PO HS 15 Days #15 tab 03/17/24 Mirtazapine [Remeron] 15 mg PO HS 30 Days #30 tab 03/17/24 fluvoxaMINE [Luvox] 100 mg PO HS 15 Days #15 tab 03/17/24 lamoTRIgine [LaMICtal] 150 mg PO DAILY 15 Days #15 tab 03/17/24 Allergies Allergy/AdvReac Type Severity Reaction Status Date / Time No Known Allergies Allergy Verified 05/25/24 15:36 Review of Systems ROS Statement: Those systems with pertinent positive or pertinent negative responses have been documented in the HPI. ROS Other: All systems not noted in ROS Statement are negative. Past Medical History Past Medical History: Asthma History of Any Multi-Drug Resistant Organisms: None Reported Past Surgical History: No Surgical Hx Reported Past Anesthesia/Blood Transfusion Reactions: No Reported Reaction Past Psychological History: Anxiety, Depression Smoking Status: Current every day smoker, Vaper Past Alcohol Use History: None Reported Past Drug Use History: Marijuana - Past Family History Mother Family Medical History: No Reported History Additional Family Medical History / Comment(s): Hx of depression, committed suicide Father Family Medical History: No Reported History Additional Family Medical History / Comment(s): Hx of depression, committed suicide General Exam - General Exam Comments Initial Comments: General: Well-appearing, nontoxic, no acute distress. Head: Normocephalic, atraumatic Eyes: PERRLA, EOMI ENT: Airway patent Chest: Nonlabored breathing Skin: No visual rash, normal skin tone Neuro: Alert and oriented 3 Musculoskeletal: No gross abnormalities Limitations: no limitations Course Vital Signs 05/25/24 14:57 Temperature 98 F Pulse Rate 80 Respiratory 16 Rate Blood Pressure 119/80 O2 Sat by Pulse 98 Oximetry Medical Decision Making - Medical Decision Making Was pt. sent in by a medical professional or institution ( PA, LOAN COUNSELOR, urgent care, hospital, or prison...) When possible be specific @ -No Did you speak to anyone other than the patient for history (EMS, parent, family, police, friend...)? What history was obtained from this source @ -No Did you review nursing and triage notes (agree or disagree)? Why? @ -I reviewed and agree with nursing and triage notes Were old charts reviewed (outside hosp., previous admission, EMS record, old EKG, old radiological studies, urgent care reports/EKG's, prison records)? Report findings @ -No old charts were reviewed Differential Diagnosis (chest pain, altered mental status, abdominal pain women, abdominal pain men, vaginal bleeding, musculoskeletal, weakness, fever, dyspnea, syncope, headache, dizziness, GI bleed, back pain, seizure, CVA, palpatations, mental health)? @ -Differential Mental Health: Depression, anxiety, bipolar, psychosis, schizophrenia, borderline personality, situational depression, adjustment disorder, behavioral disorder, brain tumor, malingering, substance abuse, encephalopathy, medication reaction, dementia, hypothyroidism, degenerative neurologic disorder, lupus.... This is not meant to be all-inclusive list EKG interpreted by me (3pts min.). @ -None done X-rays interpreted by me (1pt min.). @ -None done CT interpreted by me (1pt min.). @ -None done U/S interpreted by me (1pt. min.). @ -None done What testing was considered but not performed or refused? (CT, X-rays, U/S, labs)? Why? @ -None What meds were considered but not given or refused? Why? @ -None Was smoking cessation discussed for >3mins.? @ -No Were there social determinants of health that impacted care today? How? (Homelessness, low income, unemployed, alcoholism, drug addiction, transportation, low edu. Level, literacy, decrease access to med. care, custodial, rehab)? @ -No Was there de-escalation of care discussed even if they declined (Discuss DNR or withdrawal of care, Hospice)? DNR status @ -No What co-morbidities impacted this encounter? (DM, HTN, Smoking, COPD, CAD, Cancer, CVA, ARF, Chemo, Hep., AIDS, mental health diagnosis, sleep apnea, morbid obesity)? @ -None Was patient admitted / discharged? Hospital course, mention meds given and route, prescriptions, significant lab abnormalities, going to OR and other pertinent info. @ -34-year-old female with suicidal ideation. Vital signs stable. Physical examination is benign. Patient medically cleared for EPS evaluation. Patient eval by EPS. I was contacted at 3:47 PM that patient will be admitted to inpatient psychiatric unit. They request COVID-19 testing for MHU clearance. Did you discuss the management of the patient with other professionals (professionals i.e. , PA, LOAN COUNSELOR, lab, RT, psych nurse, group social worker, acid maker, teacher, first officer, case briefer)? Give summary @ -No Was critical care preformed (if so, how long)? @ -No Undiagnosed new problem with uncertain prognosis? @ -No Drug Therapy requiring intensive monitoring for toxicity (Heparin, Nitro, Insulin, Cardizem)? @ -No Were any procedures done? @ -No Diagnosis/symptom? Acute, or Chronic, or Acute on Chronic? Uncomplicated (without systemic symptoms) or Complicated (systemic symptoms)? @ -Suicidal ideation Side effects of treatment? @ -No Exacerbation, Progression, or Severe Exacerbation? @ -No Poses a threat to life or bodily function? How? (Chest pain, USA, PA, pneumonia, PE, COPD, DKA, ARF, appy, cholecystitis, CVA, Diverticulitis, Homicidal, Suicidal, threat to staff... and all critical care pts) @ -Yes - Lab Data Lab Results 05/25/24 05/25/24 05/25/24 Range/Units 16:12 16:12 16:20 Urine Color Colorless Urine Appearance Clear (Clear) Urine pH 6.0 (5.0-8.0) Ur Specific [place] 1.006 (1.001-1.035) Urine Protein Negative (Negative) Urine Glucose (UA) Negative (Negative) Urine Ketones Negative (Negative) Urine Blood Negative (Negative) Urine Nitrite Negative (Negative) Urine Bilirubin Negative (Negative) Urine Urobilinogen <2.0 (<2.0) mg/dL Ur Leukocyte Esterase Negative (Negative) Urine Opiates Screen Not Detected (NotDetected) Ur Oxycodone Screen Not Detected (NotDetected) Urine Methadone Screen Not Detected (NotDetected) Ur Barbiturates Screen Not Detected (NotDetected) U Tricyclic Antidepress Not Detected (NotDetected) Ur Phencyclidine Scrn Not Detected (NotDetected) Ur Amphetamines Screen Not Detected (NotDetected) U Methamphetamines Scrn Not Detected (NotDetected) U Benzodiazepines Scrn Not Detected (NotDetected) Urine Cocaine Screen Not Detected (NotDetected) U Marijuana (THC) Screen Detected H (NotDetected) SARS-CoV-2 (PCR) Not Detected (Not Detectd) Disposition Clinical Impression: Suicidal ideation Disposition: ADMITTED IP TO THIS [facility] Condition: Fair Decision Time: 15:47
[2024-05-25 16:24] LABS: Appearance,Urine Clear (Clear); Bilirubin,Urine Negative (Negative); Blood,Urine Negative (Negative); Color,Urine Colorless; Glucose,Urine (UA) Negative (Negative); Ketones,Urine Negative (Negative); Leukocyte Esterase,Urine Negative (Negative); Nitrite,Urine Negative (Negative); Protein,Urine Negative (Negative); Specific Gravity,Urine 1.006 (1.001-1.035); Urobilinogen,Urine <2.0 mg/dL (<2.0)
[2024-05-25 16:34] LABS: Amphetamine Screen,Urine Not Detected (NotDetected); Barbiturate Screen,Urine Not Detected (NotDetected); Benzodiazepines Screen,Urine Not Detected (NotDetected); Cocaine Screen,Urine Not Detected (NotDetected); Methadone Screen, Urine Not Detected (NotDetected); Opiate Screen,Urine Not Detected (NotDetected); Oxycodone Screen, Urine Not Detected (NotDetected); Phencyclidine Screen,Urine Not Detected (NotDetected); Tricyclic Antidepressant,Urine Not Detected (NotDetected); Urn Cannabinoid Scrn Detected (NotDetected)
[2024-05-25] MEDS ORDERED: MAGNESIUM HYDROXIDE 2,400 MG/30 ML CUP PO PRN (17:16)
[2024-05-25] MEDS ORDERED: IBUPROFEN 600 MG TAB PO PRN (17:16)
[2024-05-25] MEDS ORDERED: MAG HYDROX/AL HYDROX/SIMETH 355 ML BOTTLE PO PRN (17:16)
[2024-05-25] MEDS ORDERED: ACETAMINOPHEN TAB 325 MG TAB PO PRN (17:16)
[2024-05-25] MEDS ORDERED: hydrOXYzine HCL 25 MG TAB PO PRN (17:20)
[2024-05-25] MEDS ORDERED: hydrOXYzine HCL 50 MG/ML 1 ML VIAL IM PRN (17:20)
[2024-05-25] MEDS: MIRTAZAPINE 15 MG TAB PO SCH (20:19)
[2024-05-25] MEDS: ARIPiprazole 10 MG TAB PO SCH (20:19)
[2024-05-26] MEDS: ETHINYL ESTRADIOL PO SCH (08:56)
[2024-05-26] MEDS: LEVONORGESTREL PO SCH (08:56)
[2024-05-26] MEDS: NICOTINE 14MG/24HR PATCH TRANSDERM SCH (08:56)
[2024-05-26] MEDS: lamoTRIgine 100 MG TAB PO SCH (08:57)
[2024-05-26 10:07] LABS: Basophils # (A) 0.1 k/uL (0-0.2); Basophils % (A) 1 %; Eosinophils # (A) 0.3 k/uL (0-0.7); Eosinophils % (A) 5 %; HGB 14.3 gm/dL (11.4-16.0); Lymphocytes % (A) 41 %; MCH 30.6 pg (25.0-35.0); MCHC 31.9 g/dL (31.0-37.0); MCV 95.8 fL (80.0-100.0); Mean Platelet Volume 7.5; Monocytes # (A) 0.4 k/uL (0-1.0); Monocytes % (A) 5 %; Neutrophils # (A) 3.3 k/uL (1.3-7.7); Neutrophils % (A) 46 %; Platelet Count 240 k/uL (150-450); RBC 4.69 m/uL (3.80-5.40); RDW 12.8 % (11.5-15.5); WBC 7.2 k/uL (3.8-10.6)
[2024-05-26 10:25] LABS: ALT 10 U/L (4-34); AST 22 U/L (14-36); African American GFR (CKD) >90 (>60 ml/min/1.73 sqM); Alkaline Phosphatase 63 U/L (38-126); Anion Gap 5 mmol/L; Blood Urea Nitrogen 13 mg/dL (7-17); Calcium 9.2 mg/dL (8.4-10.2); Carbon Dioxide 26 mmol/L (22-30); Chloride 110 mmol/L (98-107); Glucose 96 mg/dL (74-99); Non-African American GFR(CKD) 87 (>60 ml/min/1.73 sqM); Sodium 141 mmol/L (137-145); Total Bilirubin 0.3 mg/dL (0.2-1.3); Total Protein 6.7 g/dL (6.3-8.2)
--- NOTE | 2024-05-26 12:04 | P.HP ---
Psychiatric H&P - . H&P Date: 05/26/24 History & Physical: Allergies Allergy/AdvReac Type Severity Reaction Status Date / Time No Known Allergies Allergy Verified 05/25/24 15:36 Vital Signs Temp 97.6 F 05/26/24 06:42 Pulse 60 05/26/24 06:42 Resp 17 05/26/24 06:42 BP 91/58 05/26/24 06:42 Pulse Ox 98 05/26/24 06:42 FiO2 Intake & Output 05/25/24 05/26/24 05/26/24 18:59 06:59 18:59 Weight 92.334 kg Laboratory Last Values WBC 7.2 k/uL (3.8-10.6) 05/26/24 09:08 RBC 4.69 m/uL (3.80-5.40) 05/26/24 09:08 Hgb 14.3 gm/dL (11.4-16.0) 05/26/24 09:08 Hct 45.0 % (34.0-46.0) 05/26/24 09:08 MCV 95.8 fL (80.0-100.0) 05/26/24 09:08 MCH 30.6 pg (25.0-35.0) 05/26/24 09:08 MCHC 31.9 g/dL (31.0-37.0) 05/26/24 09:08 RDW 12.8 % (11.5-15.5) 05/26/24 09:08 Plt Count 240 k/uL (150-450) 05/26/24 09:08 MPV 7.5 05/26/24 09:08 Neutrophils % 46 % 05/26/24 09:08 Lymphocytes % 41 % 05/26/24 09:08 Monocytes % 5 % 05/26/24 09:08 Eosinophils % 5 % 05/26/24 09:08 Basophils % 1 % 05/26/24 09:08 Neutrophils # 3.3 k/uL (1.3-7.7) 05/26/24 09:08 Lymphocytes # 3.0 k/uL (1.0-4.8) 05/26/24 09:08 Monocytes # 0.4 k/uL (0-1.0) 05/26/24 09:08 Eosinophils # 0.3 k/uL (0-0.7) 05/26/24 09:08 Basophils # 0.1 k/uL (0-0.2) 05/26/24 09:08 Sodium 141 mmol/L (137-145) 05/26/24 09:08 Potassium 4.0 mmol/L (3.5-5.1) 05/26/24 09:08 Chloride 110 mmol/L (98-107) H 05/26/24 09:08 Carbon Dioxide 26 mmol/L (22-30) 05/26/24 09:08 Anion Gap 5 mmol/L 05/26/24 09:08 BUN 13 mg/dL (7-17) 05/26/24 09:08 Creatinine 0.88 mg/dL (0.52-1.04) 05/26/24 09:08 Est GFR (CKD-EPI)AfAm >90 (>60 ml/min/1.73 sqM) 05/26/24 09:08 Est GFR (CKD-EPI)NonAf 87 (>60 ml/min/1.73 sqM) 05/26/24 09:08 Glucose 96 mg/dL (74-99) 05/26/24 09:08 Calcium 9.2 mg/dL (8.4-10.2) 05/26/24 09:08 Total Bilirubin 0.3 mg/dL (0.2-1.3) 05/26/24 09:08 AST 22 U/L (14-36) 05/26/24 09:08 ALT 10 U/L (4-34) 05/26/24 09:08 Alkaline Phosphatase 63 U/L (38-126) 05/26/24 09:08 Total Protein 6.7 g/dL (6.3-8.2) 05/26/24 09:08 Albumin 4.0 g/dL (3.5-5.0) 05/26/24 09:08 TSH 0.826 mIU/L (0.465-4.680) 05/26/24 09:08 Urine Color Colorless 05/25/24 16:12 Urine Appearance Clear (Clear) 05/25/24 16:12 Urine pH 6.0 (5.0-8.0) 05/25/24 16:12 Ur Specific [place] 1.006 (1.001-1.035) 05/25/24 16:12 Urine Protein Negative (Negative) 05/25/24 16:12 Urine Glucose (UA) Negative (Negative) 05/25/24 16:12 Urine Ketones Negative (Negative) 05/25/24 16:12 Urine Blood Negative (Negative) 05/25/24 16:12 Urine Nitrite Negative (Negative) 05/25/24 16:12 Urine Bilirubin Negative (Negative) 05/25/24 16:12 Urine Urobilinogen <2.0 mg/dL (<2.0) 05/25/24 16:12 Ur Leukocyte Esterase Negative (Negative) 05/25/24 16:12 Urine HCG, Qual Not Detected (Not Detectd) 05/25/24 17:16 Urine Opiates Screen Not Detected (NotDetected) 05/25/24 16:12 Ur Oxycodone Screen Not Detected (NotDetected) 05/25/24 16:12 Urine Methadone Screen Not Detected (NotDetected) 05/25/24 16:12 Ur Barbiturates Screen Not Detected (NotDetected) 05/25/24 16:12 U Tricyclic Antidepress Not Detected (NotDetected) 05/25/24 16:12 Ur Phencyclidine Scrn Not Detected (NotDetected) 05/25/24 16:12 Ur Amphetamines Screen Not Detected (NotDetected) 05/25/24 16:12 U Methamphetamines Scrn Not Detected (NotDetected) 05/25/24 16:12 U Benzodiazepines Scrn Not Detected (NotDetected) 05/25/24 16:12 Urine Cocaine Screen Not Detected (NotDetected) 05/25/24 16:12 U Marijuana (THC) Screen Detected (NotDetected) H 05/25/24 16:12 SARS-CoV-2 (PCR) Not Detected (Not Detectd) 05/25/24 16:20 05/26/24 12:03 Identifying Data: Ms. Lambert is 34 years old, single W.F., who live in [place], [place] in an apartment with her boyfriend. Chief Complaint: My counselor called jewelry sales on me History of Psychiatric Illness- The patient noted that she expressed suicidal thought with plan to hang myself to her counselor, who called the police. The patient noted that her boyfriend is moving out because of her gambling online. Her boyfriend is upset about this and other ongoing issues. He turned the online sites off. The patient noted that she has been gambling online for last one year. The patient wants to go back home and get on with her life stating that she did not want to come here. The patient noted that she is not feeling suicidal anymore. She does realize that the jewelry sales brought her here because she was suicidal. The patient noted that she will inform staff, if having suicidal thought or plans. She reported symptoms of sadness, crying spells, decreased appetite, decreased concentration and attention, feelings of worthlessness and hopelessness. The patient to the group this morning and intends to attend groups. She noted being compliant with medications. She has no side effects from current medications. Past Psychiatric History: The patient has had two psychiatric admissions, in the past. She was admitted to this hospital in a similar state last month. Before that she was in [facility]. She has no H/O of previous suicidal attempts. As per patient, she has had suicidal thoughts all her life. The patient noted that she has never sought any psychiatric treatment as an out-pt. She goes to her PCP for medications. She does not see a therapist either as an out-pt. Past Medication History: Wellbutrin, [place], Cymbalta, Zoloft, Seroquel. Currently, she is on Effexor 225 mg Daily Abilify 15 mg daily. The patient noted, Seroquel knocked me out Leading questions: The patient admitted to Depression and Anxiety. Denied SI. No HI. Denied symptoms consistent with psychosis Drugs and alcohol history: Marijuana abuse. Tobacco use: She smokes one pack a day. Past Medical history: Asthma. Family History of Psychiatric Disorder: The patients father and mother both suffered from psychiatric illness. The patient does not the details. His Dad was on Prozac when committed suicide. Her mother also committed suicide. Her father shot himself and mother over dosed. The feels that all her siblings have depression. She does not know the details. Social History and Family History: The patient was born and raised in [place], [place]. She grew-up with 4 siblings. She finished GED. Her longest job is at [employer] for few years. She is single. She has no children. She had one miscarriage at age 20. OTC: None. Allergies: None as per patient. Objective: MSE: Alert and attentive. Orientation times three Dressed and Groomed: Appropriately. Pleasant and cooperative. Psychomotor Activity: Normal. Speech: Normal in tone, quality, and quantity. Mood: Depressed and anxious. Affect: Appropriate to the mood. SI or HI: None. Perceptual disturbance: None. Thought Content: No paranoia or other delusional thinking noted. Thought Process: Normal. Cognition: Intact Judgment and Insight: Poor AIMS: Normal Labs: Reviewed. Diagnosis: Major depressive Disorder, severe, Recurrent with suicidal thoughts. Plan and Recommendations: Continue current Medications. Monitor MS and side effects of medications and adjust medications accordingly. Provide supportive psychotherapy and psychoeducation. The patient provided Substance abuse counseling. Smoke cessation therapy. The patient to attend therapeutic milieu. Medication Consent with explanation of risk/benefits and side effects: Explained and obtained.
--- NOTE | 2024-05-27 15:58 | P.PN ---
Progress Note - Text HPI: No SI today. Denies HI, AVH, med side effects MSE: Alert and attentive. Orientation times three Dressed and Groomed: Appropriately. Pleasant and cooperative. Psychomotor Activity: Normal. Speech: Normal in tone, quality, and quantity. Mood: "okay" Affect: Appropriate to the mood. SI or HI: None. Perceptual disturbance: None. Thought Content: No paranoia or other delusional thinking noted. Thought Process: Normal. Cognition: Intact Judgment and Insight: Improving A/P: no changes
--- NOTE | 2024-05-28 14:20 | P.PN ---
Progress Note - Text Interval history: At this time patient denies any suicidal or homicidal ideations intent or plan. Denies any Auditory or visual hallucinations. Patient denies any side effects from the medications and has been compliant with meds. Mental status exam: General Appearance: [Patient appears to be stated age is alert, directable, and cooperative.] Behavior: [No agitated behavior. Patient is calm and directable] Speech: Patient's speech is fluent and nonpressured. Mood/Affect: Mood is improving mildly, affect is congruent and constricted. Suicidality/Homicidality: Patient denies having any suicidal or homicidal ideation intent or plan. Perceptions: Patient denies any auditory or visual hallucinations. Though content/process: [There is no evidence of any delusional thought content and thought process is linear and goal-directed.] Memory and concentration: AOX3, grossly intact for the purposes of this session Judgment and insight: improving mildly Assessment/Plan: Continue with current diagnosis. Patient continues to meet criteria for inpatient psychiatric admission for symptom stabilization and safety.[Patient will be maintained on current psychotropic medication regimen.] Monitor for medication compliance and for any psychotropic medication side effects. Will continue to monitor ongoing response to treatment. Encouraged participation in milieu.
--- NOTE | 2024-05-29 12:11 | P.PN ---
Progress Note - Text Progress Note Date: 05/29/24 Follow-up Mediation Review Chief Complaint: I feel fine. Subjective: The patient noted that she has been doing. She spent most of the weekend reading book and some socialization with peers. The patient noted that she wants go back to work and get on with her normal routine. She noted that her boyfriend will be moving after sometime. She intends to continue working with resolve issues between them after he leaves. She feels stable to be discharged. The patient has been attending groups and participating well. Overall, the patient has remained stable since the admission. She reported no side effects of medications. She is compliant with medications. The patient has been attending the groups. The participation is good. The interaction with staff and peers is good. The patient is compliant with treatment recommendations. Leading questions: The patient denied Depression and Anxiety. Denied SI or HI. Denied symptoms consistent with psychosis Sleep and Appetite: Fine. Change in family/ living/job/financial/daily routine: No change. Change in medical condition: No change. Change in medications: No change. Side effects from Medications: None. Objective- MSE: Alert and attentive. Orientation times three. Dressed and Groomed: Appropriately. Pleasant and cooperative. Psychomotor Activity: Normal. Speech: Normal in tone, quality, and quantity. Mood: I am better. Affect: Consistent with mood. SI or HI: None. Perceptual disturbance: None. Thought Content: No paranoia or other delusional thinking noted. Thought Process: Normal. Cognition: Intact Judgment and Insight: Good AIMS: Normal. Labs: No new labs. Diagnosis: No change Plan and Recommendations: Continue current Medications. Monitor MS and side effects of medications and adjust medications accordingly. Provide supportive psychotherapy. The patient provided psychoeducation and advised The patient provided Substance abuse counseling. Smoke cessation therapy. The patient to attend morrison activities. Medication Consent with explanation of risk/benefits and side effects: Explained and obtained.
[2024-05-30 07:15] VITALS: BP 96/63; PULSE 72; RESP 14; TEMP 97.8
--- NOTE | 2024-05-30 12:45 | P.DS ---
Providers Date of admission: 05/25/24 17:14 Expected date of discharge: 05/30/24 Attending physician: Prakash Blake MD Consults: 05/25/24 17:16 Consult Physician Routine Consulting Provider: León Drummond Consult Reason/Comments: H&P Do you want consulting provider notified?: Yes Primary care physician: León Drummond MD - Discharge Diagnosis(es) (1) Major depressive disorder, recurrent severe without psychotic features Current Visit: No Status: Acute Priority: High Hospital Course: Discharge Summary HPI: Identifying Data: Ms. Lambert is 34 years old, single W.F., who live in [place], [place] in an apartment with her boyfriend. Chief Complaint: My counselor called vault maker on me History of Psychiatric Illness- The patient noted that she expressed suicidal thought with plan to hang myself to her counselor, who called the police. The patient noted that her boyfriend is moving out because of her gambling online. Her boyfriend is upset about this and other ongoing issues. He turned the online sites off. The patient noted that she has been gambling online for last one year. The patient wants to go back home and get on with her life stating that she did not want to come here. The patient noted that she is not feeling suicidal anymore. She does realize that the vault maker brought her here because she was suicidal. The patient noted that she will inform staff, if having suicidal thought or plans. She reported symptoms of sadness, crying spells, decreased appetite, decreased concentration and attention, feelings of worthlessness and hopelessness. The patient to the group this morning and intends to attend groups. She noted being compliant with medications. She has no side effects from current medications. Past Psychiatric History: The patient has had two psychiatric admissions, in the past. She was admitted to this hospital in a similar state last month. Before that she was in [facility]. She has no H/O of previous suicidal attempts. As per patient, she has had suicidal thoughts all her life. The patient noted that she has never sought any psychiatric treatment as an out-pt. She goes to her PCP for medications. She does not see a therapist either as an out-pt. Past Medication History: Wellbutrin, [place], Cymbalta, Zoloft, Seroquel. Currently, she is on Effexor 225 mg Daily Abilify 15 mg daily. The patient noted, Seroquel knocked me out Leading questions: The patient admitted to Depression and Anxiety. Denied SI. No HI. Denied symptoms consistent with psychosis Drugs and alcohol history: Marijuana abuse. Tobacco use: She smokes one pack a day. Past Medical history: Asthma. Hospital Course: After admission, the patient was involved in pharmacotherapy, mrorison milieu, and individual psychodynamic psychotherapy. The patient was started Luvox, Abilify, and Lamictal. The dose was titrated to obtain the desire effects. The patient tolerated medications well without any side effects. The patient was also involved in morrison activities. The patient attended the groups and participated well. The patient interacted with peers and staff well. The patient slowly started showing improvement. The hospital course was uneventful. The patient symptoms of depression, suicidal and homicidal ideations abated. The patient was stable to be discharged to out-patient care. The patient did not have any guns or weapons in possession at home. MSE: Alert and attentive. Orientation times three Dressed and Groomed: Appropriately. Pleasant and cooperative. Psychomotor Activity: Normal. Speech: Normal in tone, quality, and quantity. Mood: Depressed and anxious. Affect: Appropriate to the mood. SI or HI: None. Perceptual disturbance: None. Thought Content: No paranoia or other delusional thinking noted. Thought Process: Normal. Cognition: Intact Judgment and Insight: Poor AIMS: Normal Diagnosis: Major depressive Disorder, severe, Recurrent with suicidal thoughts. Plan: The patient to be discharged today. The patient has attained good improvement since admission. He is stable to be followed as an outpatient. The patient is not suicidal or Homicidal. He does not pose any harm to self or others. The patient remains at a greater risk of self-harm or harm to others than general population on a chronic basis due to psychiatric illness and substance abuse. The patient will continue taking following medication post discharge. The importance of medication compliance and maintaining regular appointments at psychiatric out-pt and PCP clinic was explained and encouraged. The patient was also advised to seek alcohol counseling and attend AA/NA meetings. The understood and agreed with the recommendations. vessel slag worker to arrange for and conduct family meeting to ensure safety upon discharge and answer any questions. The geriatric social worker to arrange for patients follow-up appointments at [facility] for psychiatric care along with follow-up with PCP. The patient provided psychoeducation. Advised to call 911 or go to nearest ED or call this hospital in case of acute worsening of symptomatology, severe side eff ects or having suicidal, homicidal thoughts and feeling unsafe at home. Patient Condition at Discharge: Stable Plan - Discharge Summary Discharge Rx Participant: No New Discharge Prescriptions: Continue ARIPiprazole [Abilify] 10 mg PO HS 15 Days #15 tab fluvoxaMINE [Luvox] 100 mg PO HS 15 Days #30 tab lamoTRIgine [LaMICtal] 150 mg PO DAILY 15 Days #23 tab Mirtazapine [Remeron] 15 mg PO HS 15 Days #15 tab Discontinued Sronyx 0.1-20 Mg-Mcg Tab 1 tab PO DAILY hydrOXYzine pamoate [Vistaril] 50 mg PO QID PRN PRN Reason: Anxiety Discharge Medication List ARIPiprazole [Abilify] 10 mg PO HS 15 Days #15 tab 05/30/24 [Rx] Mirtazapine [Remeron] 15 mg PO HS 15 Days #15 tab 05/30/24 [Rx] fluvoxaMINE [Luvox] 100 mg PO HS 15 Days #30 tab 05/30/24 [Rx] lamoTRIgine [LaMICtal] 150 mg PO DAILY 15 Days #23 tab 05/30/24 [Rx] Follow up Appointment(s)/Referral(s): [facility] [Other] - 06/01/24 1:00 pm (06/01/2024 @ 13:00) León Drummond MD [Primary Care Provider] - 1-2 days Patient Instructions/Handouts: Depression (DC) Activity/Diet/Wound Care/Special Instructions: Avoid the use of street drugs and alcohol. Take all medications as prescribed. When you are in need of refills on your medications, please contact your outpatient medical provider and/or outpatient psychiatrist. Please go to your scheduled outpatient appointments for aftercare treatment. If symptoms return or become worse, call the crisis line at or and/or visit the nearest emergency room for assistance. National Suicide and Crisis Lifeline - call or text 329. Discharge Disposition: HOME SELF-CARE
== END 2024-05-30 12:50 | disposition home or self-care (01) | DRG 885 ==
LOC: EC 14:56 → 3MHU 17:14
PROVIDERS: ADMIT Psychiatry & Neurology Psychiatry; ATTEND Psychiatry & Neurology Psychiatry
DX: F33.2 Major depressive disorder, recurrent severe without psychotic features (principal); R45.851 Suicidal ideations; J45.909 Unspecified asthma, uncomplicated; F41.9 Anxiety disorder, unspecified; F17.210 Nicotine dependence, cigarettes, uncomplicated; Z79.899 Other long term (current) drug therapy; Z81.8 Family history of other mental and behavioral disorders; F12.10 Cannabis abuse, uncomplicated; Z71.51 Drug abuse counseling and surveillance of drug abuser; Z28.310 Unvaccinated for COVID-19; Z11.52 Encounter for screening for COVID-19; Z28.21 Immunization not carried out because of patient refusal
CPT/HCPCS: 80053; 80175; 80306; 81003; 81025; 82075; 83036; 84443; 85025; 87635; 99285

== ENCOUNTER 2024-06-29 02:00 | Inpatient (IN) | payer MEDICAID, OTHER ==
[2024-06-29] MEDS ORDERED: NICOTINE 14MG/24HR PATCH TRANSDERM ONE (08:07)
[2024-06-29] MEDS ORDERED: lamoTRIgine 100 MG TAB ONE (08:07)
[2024-06-29] MEDS ORDERED: ARIPiprazole 10 MG TAB ONE (19:58)
[2024-06-29] MEDS ORDERED: MIRTAZAPINE 15 MG TAB ONE (19:58)
[2024-06-30] MEDS ORDERED: lamoTRIgine 100 MG TAB ONE ×2 (08:18→20:35)
[2024-06-30] MEDS ORDERED: lamoTRIgine 25 MG TAB ONE (08:18)
[2024-06-30] MEDS ORDERED: MIRTAZAPINE 15 MG TAB ONE (20:35)
[2024-06-30] MEDS ORDERED: ARIPiprazole 10 MG TAB ONE (20:35)
[2024-07-01] MEDS ORDERED: lamoTRIgine 100 MG TAB ONE ×2 (07:59→20:13)
[2024-07-01] MEDS ORDERED: NICOTINE 14MG/24HR PATCH TRANSDERM ONE (07:59)
[2024-07-01] MEDS ORDERED: MIRTAZAPINE 15 MG TAB ONE (20:13)
[2024-07-01] MEDS ORDERED: ARIPiprazole 10 MG TAB ONE (20:13)
[2024-07-02] MEDS ORDERED: LORazepam 2 MG/ML INJ IM PRN
[2024-07-02] MEDS ORDERED: NICOTINE 14MG/24HR PATCH TRANSDERM ONE (08:39)
[2024-07-02] MEDS ORDERED: lamoTRIgine 100 MG TAB ONE ×2 (08:40→20:20)
[2024-07-02] MEDS ORDERED: MAGNESIUM HYDROXIDE 2,400 MG/30 ML CUP PO PRN (09:00)
[2024-07-02] MEDS ORDERED: traZODone HCL 50 MG TAB PO PRN (10:42)
--- NOTE | 2024-07-02 10:45 | P.PN ---
Progress Note - Text Progress Note Date: 07/02/24 The patient was seen and chart was reviewed and case discussed with nursing staff Patient reports that she has not been sleeping too well She states that she has been taking her other medications as prescribed She says that her moods are still about the same Denies any suicidal ideations or plans at this time states that she would not do anything to harm herself while in the hospital She says that she is working on her self-esteem and confidence Alert and attentive. Orientation times three. Dressed and Groomed: Glasses, appropriately. Casually dressed and groomed Pleasant and cooperative. Psychomotor Activity: Normal. Speech: Normal in tone, quality, and quantity. Mood: Flat Affect: Blunted c SI or HI: None. Perceptual disturbance: None. Thought Content: No paranoia or other delusional thinking noted. Thought Process: Normal. Cognition: Intact Judgment and Insight: Good AIMS: Normal. Labs: No new labs. Plan and Recommendations: Continue current Medications. Monitor MS and side effects of medications and adjust medications accordingly. Provide supportive psychotherapy. The patient provided psychoeducation The patient to attend morrison activities. Medication Consent with explanation of risk/benefits and side effects: Explained To continue Lamictal as prescribed Active Medications Generic Name Dose Route Start Last Admin Trade Name Freq PRN Reason Stop Dose Admin Acetaminophen 650 mg 07/02/24 00:00 Acetaminophen Tab 325 Mg Tab PO Q4HR PRN Pain Al Hydroxide/Mg Hydroxide 30 ml 07/02/24 00:00 Mag Hydrox/Al Hydrox/Simeth 30 Ml Cup PO Q4HR PRN GI Upset Aripiprazole 10 mg 07/02/24 21:00 Aripiprazole 10 Mg Tab PO HS VIRIDIANA Fluvoxamine Maleate 150 mg 07/02/24 09:00 Fluvoxamine 50 Mg Tab PO DAILY VIRIDIANA Lamotrigine 100 mg 07/02/24 09:00 Lamotrigine 100 Mg Tab PO BID VIRIDIANA Lorazepam 2 mg 07/02/24 00:00 Lorazepam 1 Mg Tab PO Q4H PRN AGITATION Lorazepam 2 mg 07/02/24 00:00 Lorazepam 2 Mg/Ml Inj IM Q4H PRN AGITATION Magnesium Hydroxide 2,400 mg 07/02/24 09:00 Magnesium Hydroxide 2,400 Mg/30 Ml Cup PO DAILY PRN Constipation Mirtazapine 15 mg 07/02/24 21:00 Mirtazapine 15 Mg Tab PO HS VIRIDIANA Nicotine 1 patch 07/02/24 09:00 Nicotine 14mg/24hr Patch TRANSDERM DAILY VIRIDIANA Sronyx 1 each 07/02/24 09:00 PO DAILY VIRIDIANA Trazodone HCl 50 mg 07/02/24 10:42 Trazodone Hcl 50 Mg Tab PO HS PRN Insomnia New medication added trazodone 50 mg at bedtime Discussed effects and side effects
[2024-07-02] MEDS: lamoTRIgine 100 MG TAB PO SCH (10:55)
[2024-07-02] MEDS: NICOTINE 14MG/24HR PATCH TRANSDERM SCH (11:50)
--- NOTE | 2024-07-02 15:36 | P.CONS ---
History of Present Illness - History of Present Illness This is a pleasant 34 years old female who was admitted to the hospital for her psych illnesses to the mental health unit Patient was lying in bed looks withdrawn. She denies specific symptoms to me, please refer to the review of system for further details However patient's wants to check a test because she missed her 1. Which was ordered Patient states she smokes 1 pack/day and she was counseled to quit and she agrees Also she vapes marijuana and counseled to quit and she agrees She denies alcohol use disorder Her PCP is Dr. Drummond Review of Systems Review of systems CONSTITUTIONAL: No fever, no malaise, no fatigue. HEENT: No recent visual problems or hearing problems. Denied any sore throat. CARDIOVASCULAR: No orthopnea, PND, no palpitations, no syncope. PULMONARY: No shortness of breath, no cough, no hemoptysis. GASTROINTESTINAL: No diarrhea, no nausea, no vomiting, no abdominal pain. Normoactive bowel sounds. NEUROLOGICAL: No headaches, no weakness, no numbness. HEMATOLOGICAL: Denies any bleeding or petechiae. GENITOURINARY: Denies any burning micturition, frequency, or urgency. MUSCULOSKELETAL/RHEUMATOLOGICAL: Denies any joint pain, swelling, or any muscle pain. ENDOCRINE: Denies any polyuria or polydipsia. Past Medical History Past Medical History: Asthma History of Any Multi-Drug Resistant Organisms: None Reported Past Surgical History: No Surgical Hx Reported Past Anesthesia/Blood Transfusion Reactions: No Reported Reaction Past Psychological History: Anxiety, Depression Smoking Status: Current every day smoker, Vaper Past Alcohol Use History: Rare Past Drug Use History: Marijuana - Past Family History Mother Family Medical History: No Reported History Additional Family Medical History / Comment(s): Hx of depression, committed suicide Father Family Medical History: No Reported History Additional Family Medical History / Comment(s): Hx of depression, committed suicide Medications and Allergies Home Medications Medication Instructions Recorded Confirmed Type ARIPiprazole [Abilify] 10 mg PO HS 15 Days #15 tab 05/30/24 Rx Mirtazapine [Remeron] 15 mg PO HS 15 Days #15 tab 05/30/24 Rx fluvoxaMINE [Luvox] 100 mg PO HS 15 Days #30 tab 05/30/24 Rx lamoTRIgine [LaMICtal] 150 mg PO DAILY 15 Days #23 tab 05/30/24 Rx Allergies Allergy/AdvReac Type Severity Reaction Status Date / Time No Known Allergies Allergy Verified 05/25/24 15:36 Physical Exam GENERAL: The patient is alert and oriented x3, not in any acute distress. Well developed, well nourished. HEENT: Pupils are round and equally reacting to light. EOMI. No scleral icterus. No conjunctival pallor. Normocephalic, atraumatic. No pharyngeal erythema. No thyromegaly. CARDIOVASCULAR: S1 and S2 present. No murmurs, rubs, or gallops. PULMONARY: Chest is clear to auscultation, no wheezing , no crackles. ABDOMEN: Soft, nontender, nondistended, normoactive bowel sounds. No palpable organomegaly. MUSCULOSKELETAL: No joint swelling or deformity. EXTREMITIES: No cyanosis, clubbing, or pedal edema. NEUROLOGICAL: Gross neurological examination did not reveal any focal deficits. SKIN: No rashes. no petechiae. Assessment and Plan Assessment: Anxiety and depression and other psych illnesses Amenorrhea, patient placed one menstrual period, Rule out Nicotine dependence Substance abuse with cannabis Obesity with BMI of 36.9 Plan: Management of psych illnesses as per psych primary team Patient was counseled to quit and recommend nicotine patch Patient was counseled to quit substance like marijuana We will check serum test. If negative then will recommend patient follow-up with [facility] in 1 week after discharge. Contact information for Dr. Alex Starks was placed in her discharge recommendation We recommend patient follow-up with PCP Dr. Drummond in 1 week after discharge Patient was instructed with the above i recommendations and she agrees
[2024-07-02] MEDS ORDERED: ARIPiprazole 10 MG TAB ONE (20:20)
[2024-07-02] MEDS ORDERED: MIRTAZAPINE 15 MG TAB ONE (20:20)
[2024-07-02] MEDS: MIRTAZAPINE 15 MG TAB PO SCH (20:20)
[2024-07-02] MEDS: ARIPiprazole 10 MG TAB PO SCH (20:20)
[2024-07-03] MEDS ORDERED: lamoTRIgine 100 MG TAB ONE (08:16)
--- NOTE | 2024-07-03 16:57 | P.PN ---
Progress Note - Text Progress Note Date: 07/03/24 Follow-up Mediation Review Chief Complaint: I feel the same. Subjective: The patient noted that she has been doing the same. She continues to feel depressed. She reports loss of motivation, drive, enthusiasm, and energy. She wants to lay in bed and sleep. Nothing interests her. She reported some tremors since the increase of Luvox to 150 mg daily. Will lower the dose to 100mg. Explained patient. She agreed and consented. She is compliant with medications. The patient has not been attending the groups. The interaction with staff and peers is limited. The patient is compliant with medications. Leading questions: The patient admitted to Depression and Anxiety. Denied SI or HI. Denied symptoms consistent with psychosis Sleep and Appetite: impaired. Change in family/ living/job/financial/daily routine: No change. Change in medical condition: No change. Change in medications: No change. Side effects from Medications: tremors from Luvox. Objective- MSE: Alert and attentive. Orientation times three. Dressed and Groomed: Appropriately. Pleasant and cooperative. Psychomotor Activity: Reduced. Speech: Normal in tone, quality, and quantity. Mood: depressed and anxious. Affect: Sad and blunted. SI or HI: None. Perceptual disturbance: None. Thought Content: No paranoia or other delusional thinking noted. Thought Process: Normal. Cognition: Intact Judgment and Insight: Poor. AIMS: Normal. Labs: Preg test reviewed with patient. Diagnosis: No change Plan and Recommendations: Continue current Medications. Decrease the dose of Luvox to 100 mg/daily. Monitor MS and side effects of medications and adjust medications accordingly. Provide supportive psychotherapy. The patient provided psychoeducation and advised The patient provided Substance abuse counseling. Smoke cessation therapy. The patient to attend morrison activities. Medication Consent with explanation of risk/benefits and side effects: Explained and obtained.
--- NOTE | 2024-07-04 15:23 | P.PN ---
Progress Note - Text Progress Note Date: 07/04/24 Follow-up Mediation Review Chief Complaint: I have tremors. Subjective: The patient noted that she has been experiencing tremors with Luvox. She still has thoughts of hurting herself and continues to feel depressed. The patient was seen in groups today. She attended groups but did not participate. She remained to herself. She is compliant with medications. Discussed alternate medications with their risks/benefits and side effects. The patient agreed to take Paxil. The patient attended the morning group. The interaction with staff and peers is limited. The patient is compliant with medications. Leading questions: The patient admitted to Depression and Anxiety. Denied SI or HI. Denied symptoms consistent with psychosis Sleep and Appetite: impaired. Change in family/ living/job/financial/daily routine: No change. Change in medical condition: No change. Change in medications: No change. Side effects from Medications: tremors from Luvox. Objective- MSE: Alert and attentive. Orientation times three. Dressed and Groomed: Appropriately. Pleasant and cooperative. Psychomotor Activity: Reduced. Speech: Normal in tone, quality, and quantity. Mood: depressed and anxious. Affect: Sad and blunted. SI or HI: None. Perceptual disturbance: None. Thought Content: No paranoia or other delusional thinking noted. Thought Process: Normal. Cognition: Intact Judgment and Insight: Poor. AIMS: Normal. Labs: No new labs. Diagnosis: No change Plan and Recommendations: Continue current Medications. Decrease the dose of Luvox to 50 mg/daily. Luvox to be tapered off. Monitor MS and side effects of medications and adjust medications accordingly. Provide supportive psychotherapy. The patient provided psychoeducation and advised The patient provided Substance abuse counseling. Smoke cessation therapy. The patient to attend morrison activities. Medication Consent with explanation of risk/benefits and side effects: Explained and obtained.
--- NOTE | 2024-07-05 16:44 | P.PN ---
Progress Note - Text Progress Note Date: 07/05/24 Follow-up Mediation Review Chief Complaint: my tremors are better. Subjective: The patient noted that she has noticed less tremors since the reduction of Luvox. She has not noticed any discomfort from coming off Luvox. She wants to be started on Paxil. She agreed to go off Luvox and start Paxil today. The risks/benefits and side effects discussed. The patient understood and consented. She has noticed no change in her suicidality or depressive symptomatology since admission. She attended groups but has been irregular. Her participation limited. She is compliant with medications. The patient attended one group. The interaction with staff and peers is limited. The patient is compliant with medications. Leading questions: The patient admitted to Depression and Anxiety. Denied SI or HI. Denied symptoms consistent with psychosis Sleep and Appetite: impaired. Change in family/ living/job/financial/daily routine: No change. Change in medical condition: No change. Change in medications: No change. Side effects from Medications: tremors from Luvox. Objective- MSE: Alert and attentive. Orientation times three. Dressed and Groomed: Appropriately. Pleasant and cooperative. Psychomotor Activity: Reduced. Speech: Normal in tone, quality, and quantity. Mood: depressed and anxious. Affect: Sad and blunted. SI or HI: None. Perceptual disturbance: None. Thought Content: No paranoia or other delusional thinking noted. Thought Process: Normal. Cognition: Intact Judgment and Insight: Poor. AIMS: Normal. Labs: No new labs. Diagnosis: No change Plan and Recommendations: Continue current Medications. D/c Luvox. Initiate Paxil 10 mg po qd. MS and side effects of medications and adjust medications accordingly. Provide supportive psychotherapy. The patient provided psychoeducation and advised The patient provided Substance abuse counseling. Smoke cessation therapy. The patient to attend morrison activities. Medication Consent with explanation of risk/benefits and side effects: Explained and obtained.
--- NOTE | 2024-07-06 14:52 | P.PN ---
Progress Note - Text Progress Note Date: 07/06/24 Follow-up Mediation Review Chief Complaint: No tremors today. Subjective: The patient noted that she did not get Paxil this morning. She was given Luvox. The patient did note that with Luvox 50 mg she did not experience any tremors but this dos e has not been effective. has noticed less tremors since the reduction of Luvox. She has not noticed any discomfort from coming off Luvox. She has noticed no change in her suicidality or depressive symptomatology since admission. She attended groups but has been irregular. Her participation limited. She is compliant with medications. Leading questions: The patient admitted to Depression and Anxiety. Denied SI or HI. Denied symptoms consistent with psychosis Sleep and Appetite: impaired. Change in family/ living/job/financial/daily routine: No change. Change in medical condition: No change. Change in medications: No change. Side effects from Medications: None. Objective- MSE: Alert and attentive. Orientation times three. Dressed and Groomed: Appropriately. Pleasant and cooperative. Psychomotor Activity: Reduced. Speech: Normal in tone, quality, and quantity. Mood: depressed and anxious. Affect: Sad and blunted. SI or HI: None. Perceptual disturbance: None. Thought Content: No paranoia or other delusional thinking noted. Thought Process: Normal. Cognition: Intact Judgment and Insight: Poor. AIMS: Normal. Labs: No new labs. Diagnosis: No change Plan and Recommendations: Continue current Medications. Paxil 10 mg po qd. MS and side effects of medications and adjust medications accordingly. Provide supportive psychotherapy. The patient provided psychoeducation and advised The patient provided Substance abuse counseling. Smoke cessation therapy. The patient to attend morrison activities. Medication Consent with explanation of risk/benefits and side effects: Explained and obtained.
[2024-07-07] MEDS: PARoxetine 10 MG TAB PO SCH (08:34)
--- NOTE | 2024-07-07 14:10 | P.PN ---
Progress Note - Text Progress Note Date: 07/07/24 Follow-up Mediation Review Chief Complaint: I feel nothing after taking the medication. Subjective: The patient noted that she did notice any side effects after taking her medications. She has not felt any different mood de león to. She noted having the same symptoms of depression she had at the time of admission. She reports severe depression and suicidal ideations with plan to hang herself. She attended groups but has been irregular. Her participation limited. She is compliant with medications. Leading questions: The patient admitted to Depression and Anxiety. Denied SI or HI. Denied symptoms consistent with psychosis Sleep and Appetite: impaired. Change in family/ living/job/financial/daily routine: No change. Change in medical condition: No change. Change in medications: No change. Side effects from Medications: None. Objective- MSE: Alert and attentive. Orientation times three. Dressed and Groomed: Appropriately. Pleasant and cooperative. Psychomotor Activity: Reduced. Speech: Normal in tone, quality, and quantity. Mood: depressed and anxious. Affect: Sad and blunted. SI or HI: None. Perceptual disturbance: None. Thought Content: No paranoia or other delusional thinking noted. Thought Process: Normal. Cognition: Intact Judgment and Insight: Poor. AIMS: Normal. Labs: No new labs. Diagnosis: No change Plan and Recommendations: Continue current Medications. MS and side effects of medications and adjust medications accordingly. Provide supportive psychotherapy. The patient provided psychoeducation and advised The patient provided Substance abuse counseling. Smoke cessation therapy. The patient to attend morrison activities. Medication Consent with explanation of risk/benefits and side effects: Explained and obtained.
[2024-07-07] MEDS: LORazepam 1 MG TAB PO PRN (21:16)
--- NOTE | 2024-07-08 18:18 | P.PN ---
Progress Note - Text Progress Note Date: 07/08/24 Interval history: Patient was seen at the bedside while resting and was directable and agreeable to speak with verse writer. Reports ongoing symptoms of depression and continues to have thoughts of "I just do not want to be here". She sometimes has thoughts about hanging herself though no intent or plan to act on these thoughts while she is here in the hospital. She rates the intensity of her suicidal ideation is 7 out of 10 with 10 being the most intense. She endorses having had an experience of panic this morning that was relieved with a as needed medication she is interested in trying something to help with the anxiety that she feels at times. At this time patient denies homicidal ideations intent or plan. Denies any auditory or visual hallucinations. Patient denies any side effects from the medications and has been compliant with meds. Mental status exam: General Appearance: Patient appears to be stated age is alert, directable, and cooperative. Behavior: No agitated behavior. Patient is calm and directable Speech: Patient's speech is fluent and nonpressured. Mood/Affect: Mood is depressed, affect is congruent and constricted. Suicidality/Homicidality: Patient denies having homicidal ideation intent or plan. Endorses suicidal ideation, no intent or plan. Perceptions: Patient denies any auditory or visual hallucinations. Though content/process: There is no evidence of any delusional thought content and thought process is linear and goal-directed. Memory and concentration: AOX3, grossly intact for the purposes of this session Judgment and insight: questionable Assessment/Plan: Continue treatment for depression. Patient continues to meet criteria for inpatient psychiatric admission for symptom stabilization and safety. [Patient will be maintained on current psychotropic medication regimen. Will plan to add hydroxyzine 25 mg BID PRN for anxiety. Monitor for medication compliance and for any psychotropic medication side effects. Will continue to monitor ongoing response to treatment. Encouraged participation in milieu.
[2024-07-08] MEDS: hydrOXYzine HCL 25 MG TAB PO PRN (19:59)
[2024-07-08] MEDS: MAG HYDROX/AL HYDROX/SIMETH 30 ML CUP PO PRN (22:14)
[2024-07-09] MEDS: ACETAMINOPHEN TAB 325 MG TAB PO PRN (02:21)
--- NOTE | 2024-07-09 19:44 | P.PN ---
Progress Note - Text Progress Note Date: 07/09/24 Interval history: Patient became febrile overnight which necessitated a room change and further intervention. Viral and Strep testing have been negative. She was seen resting in bed this morning and explained that she continues to generally feel unwell. She denies any specific pain or other symptoms aside from fever. Encouraged her to communicate with nursing staff if symptoms worsen or new symptoms occur. When asked about her mood she said "I do not know I am just trying to sleep". She do es continue to experience suicidal ideation though no intent or plan. She denies homicidal ideation, intent, and plan. He has not experienced any auditory or visual hallucinations. Mental status exam: General Appearance: Patient appears to be stated age is alert, directable, and cooperative. Behavior: No agitated behavior. Patient is calm and directable Speech: Patient's speech is fluent and nonpressured. Mood/Affect: Mood is "I don't know", affect is congruent and constricted. Suicidality/Homicidality: Patient denies having homicidal ideation intent or plan. Endorses suicidal ideation, no intent or plan. Perceptions: Patient denies any auditory or visual hallucinations. Though content/process: There is no evidence of any delusional thought content and thought process is linear and goal-directed. Memory and concentration: AOX3, grossly intact for the purposes of this session Judgment and insight: questionable Assessment/Plan: Continue treatment for depression. Patient continues to meet criteria for inpatient psychiatric admission for symptom stabilization and safety. Increase Paxil to 20 mg daily. Continue other medication regimen. Monitor for medication compliance and for any psychotropic medication side effects. Will continue to monitor ongoing response to treatment. Encouraged participation in milieu.
[2024-07-10] MEDS: PARoxetine 20 MG TAB PO SCH (10:42)
--- NOTE | 2024-07-10 12:22 | P.PN ---
Progress Note - Text Progress Note Date: 07/10/24 Interval History: Patient was seen at the bedside and was directable and agreeable to speak with song writer. When asked about her mood today she said "I do not know". She continues to experience sore throat though this is relieved some with Tylenol and ibuprofen. She is not experiencing any other physical symptoms with the exception of intermittent headache. She denies having suicidal ideation today. She does not have intent or plan for self directed violence. We discussed that today is her first dose of Paxil 20 mg daily which is an increase from her prior dose of 10 mg daily. We will continue to evaluate how this may impact her mood. At this time patient denies any suicidal or homicidal ideations, intent or plan. Patient denies any auditory, visual hallucinations and denies any paranoia or delusions. Patient denies any side effects from the medications and has been compliant with meds. Mental status exam: General Appearance: Patient appears to be stated age is alert, directable, and cooperative. Behavior: No agitated behavior. Patient is calm and directable. Resting in bed. Speech: Patient's speech is fluent and nonpressured. Mood/Affect: Mood is "I don't know", affect is congruent and constricted. Suicidality/Homicidality: Patient denies having homicidal ideation intent or plan. Endorses suicidal ideation, no intent or plan. Perceptions: Patient denies any auditory or visual hallucinations. Though content/process: There is no evidence of any delusional thought content and thought process is linear and goal-directed. Memory and concentration: AOX3, grossly intact for the purposes of this session Judgment and insight: questionable Assessment - Unspecified mood disorder (consider MDD, Bipolar disorder) Plan: -Patient continues to meet criteria for inpatient psychiatric admission for symptom stabilization and safety. -Medications: - Lamictal 100 mg BID - Mirtazapine 15 mg QHS - Abilify 10 mg QHS - Paxil 20 mg daily (increased 07/10/24) - Trazodone 50 mg PRN -Continue supportive care for illness. Repeat COVID-19 test negative today. -When necessary Ativan and Haldol for agitation/aggression. -NRT -nicotine patch -SW on board for discharge planning. Encouraged the patient to participate in milieu.
[2024-07-11 12:34] VITALS: BMI 36.8
--- NOTE | 2024-07-12 12:39 | P.PN ---
Progress Note - Text Progress Note Date: 07/11/24 Subjective: The patient noted that she has sore throat. She was negative for Covid. She coplaint of being tired. She is still not attending groups or interacting much with staff and peers. She continues to be depressed, withdrawn, lethargic, amotivated, and suicidal with plan. Patient denies any auditory, visual hallucinations and denies any paranoia or delusions. Patient denies any side effects from the medications and has been compliant with meds. Objective: MSE: General Appearance: Patient appears to be stated age is alert, directable, and cooperative. Behavior: No agitated behavior. Patient is calm and directable. Resting in bed. Speech: Patient's speech is fluent and nonpressured. Mood/Affect: Mood is "I don't know", affect is congruent and constricted. Suicidality/Homicidality: Patient denies having homicidal ideation intent or plan. Endorses suicidal ideation, no intent or plan. Perceptions: Patient denies any auditory or visual hallucinations. Though content/process: There is no evidence of any delusional thought content and thought process is linear and goal-directed. Memory and concentration: AOX3, grossly intact for the purposes of this session Judgment and insight: questionable Diagnosis: No change. Plan: Continue current medications. Monitor MS and side effects and titrate the dose as needed. Supportive therapy Encourage to attend morrison milieu.
--- NOTE | 2024-07-12 14:44 | P.PN ---
Progress Note - Text Progress Note Date: 07/12/24 Subjective: The patient noted that she is still struggling with cold. Her Covid done today came negative. She reported feeling bad. Her depression and suicidal thoughts remain the same. She has seen no improvement in her depression. She is staying in her bed most of the time due to depression, lethargy body ache and tiredness. She is still not attending groups or interacting much with staff and peers. She continues to be depressed, withdrawn, lethargic, unmotivated, and suicidal with plan. Patient denies any auditory, visual hallucinations and denies any paranoia or delusions. Patient denies any side effects from the medications and has been compliant with meds. Objective: MSE: General Appearance: Patient appears to be stated age is alert, directable, and cooperative. Behavior: No agitated behavior. Patient is calm and directable. Resting in bed. Speech: Patient's speech is fluent and nonpressured. Mood/Affect: Mood is "I don't know", affect is congruent and constricted. Suicidality/Homicidality: Patient denies having homicidal ideation intent or plan. Endorses suicidal ideation, no intent or plan. Perceptions: Patient denies any auditory or visual hallucinations. Though content/process: There is no evidence of any delusional thought content and thought process is linear and goal-directed. Memory and concentration: AOX3, grossly intact for the purposes of this session Judgment and insight: questionable Diagnosis: No change. Plan and Recommendations: Continue current Medications. Monitor MS and side effects of medications and adjust medications accordingly. Provide supportive psychotherapy. The patient provided psychoeducation and advised The patient provided Substance abuse counseling. Smoke cessation therapy. The patient to attend morrison activities. Medication Consent with explanation of risk/benefits and side effects: Explained and obtained
--- NOTE | 2024-07-13 15:47 | P.PN ---
Progress Note - Text Progress Note Date: 07/13/24 Subjective: The patient noted that her throat is still sore. She mostly stays in her room. Her depression and suicidal thoughts remain the same. She has seen no improvement in her depression. She continues to be depressed, withdrawn, lethargic, unmotivated, and suicidal with plan. Patient denies any auditory, visual hallucinations and denies any paranoia or delusions. Patient denies any side effects from the medications and has been compliant with meds. Objective: MSE: General Appearance: Patient appears to be stated age is alert, directable, and cooperative. Behavior: No agitated behavior. Patient is calm and directable. Resting in bed. Speech: Normal in tone quality and quantity. Mood/Affect: I am depressed. SI and HI: Patient denies having homicidal ideation intent or plan. Endorses suicidal ideation. Perceptions: Patient denies any auditory or visual hallucinations. Though content/process: There is no evidence of any delusional thought content and thought process is linear and goal-directed. Memory and concentration: AOX3, grossly intact for the purposes of this session Judgment and insight: Poor. Diagnosis: No change. Plan and Recommendations: Continue current Medications. Monitor MS and side effects of medications and adjust medications accordingly. Provide supportive psychotherapy. The patient provided psychoeducation and advised The patient provided Substance abuse counseling. Smoke cessation therapy. The patient to attend morrison activities. Medication Consent with explanation of risk/benefits and side effects: Explained and obtained
[2024-07-14 12:53] LABS: Basophils # (A) 0.1 k/uL (0-0.2); Basophils % (A) 1 %; Eosinophils # (A) 0.3 k/uL (0-0.7); Eosinophils % (A) 2 %; HCT 43.6 % (34.0-46.0); HGB 14.4 gm/dL (11.4-16.0); Lymphocytes # (A) 2.3 k/uL (1.0-4.8); Lymphocytes % (A) 17 %; MCH 30.2 pg (25.0-35.0); MCV 91.6 fL (80.0-100.0); Mean Platelet Volume 7.7; Monocytes # (A) 0.8 k/uL (0-1.0); Monocytes % (A) 6 %; Neutrophils # (A) 9.8 k/uL (1.3-7.7); Neutrophils % (A) 72 %; Platelet Count 234 k/uL (150-450); RBC 4.76 m/uL (3.80-5.40); RDW 12.7 % (11.5-15.5); WBC 13.6 k/uL (3.8-10.6)
[2024-07-14] MEDS: AZITHROMYCIN 500 MG TAB PO ONE (14:28)
[2024-07-15] MEDS: AZITHROMYCIN 500 MG TAB PO SCH (08:34)
--- NOTE | 2024-07-15 10:47 | P.PN ---
Subjective Progress Note Date: 07/15/24 Principal diagnosis: Major depression, panic disorder subjective: The patient noted that her throat is getting worse. She could not sleep last night. She continues to feel depressed and suicidal but having no plans.she is in a bind because she may or may not have Covid so she doesn't want to get up from the other people on the unit and she can be out in the regular unit so she feels really confined and board but she has reading a book says her concentration is okay but she still feels depressed and wants to know how long it takes for medication to work. She has been in her room most of the time since the Covid cases were reported. She has come negativeon the Covid test twice. She continues to be depressed, withdrawn, lethargic, unmotivated, and suicidal without plan. Patient denies any auditory, visual hallucinations and denies any paranoia or delusions. Patient denies any side effects from the medications and has been compliant with meds. Objective: Patient was lying in her room didn't feel energetic enough to get up and come down and talk to me in the office. She had good eye contact reasonable response times oriented 3 denying did not show any signs of psychosis affect is flat to depressed. Assessment she is tolerating her medications well I just take some time to work. Plan no change at this time Objective - Vital Signs Vital signs: Vital Signs Temp 98.9 F 07/15/24 08:15 Pulse 89 07/15/24 08:15 Resp 20 07/15/24 08:15 BP 109/56 07/15/24 08:15 Pulse Ox 99 07/13/24 08:00 FiO2 - Labs CBC & Chem 7: 07/14/24 12:28 Labs: Abnormal Lab Results - Last 24 Hours (Table) 07/14/24 Range/Units 12:28 WBC 13.6 H (3.8-10.6) k/uL Neutrophils # 9.8 H (1.3-7.7) k/uL
--- NOTE | 2024-07-16 08:50 | P.PN ---
Subjective Progress Note Date: 07/16/24 Principal diagnosis: Major depression, panic disorder subjective: I saw the patient sitting in her room she didn't want to come down to the office and talk. She was eating a breakfast seem to have a good appetite. The patient noted that her throat is getting worse. She could not sleep last night. She continues to feel depressed and suicidal but having no plans.she is in a bind because she may or may not have Covid so she doesn't want to get around the other people on the unit and she can not be out in the regular unit so she feels really confined and bored but she has been reading a book and says her concentration is okay but she still feels depressed and wants to know how long it takes for medication to work. She has been in her room most of the time since the Covid cases were reported. She has come negative on the Covid test twice. She continues to be depressed, withdrawn, lethargic, unmotivated, and suicidal without plan. Patient denies any auditory, visual hallucinations and denies any paranoia or delusions. Patient denies any side effects from the medications and has been compliant with meds. Objective: Patient was lying in her room didn't feel energetic enough to get up and come down and talk to me in the office. She had good eye contact reasonable response times oriented 3 denying did not show any signs of psychosis affect is flat to depressed. Assessment: she is tolerating her medications welland and they just take some time to work. Plan no change at this time Objective - Vital Signs Vital signs: Vital Signs Temp 98.9 F 07/15/24 08:15 Pulse 89 07/15/24 08:15 Resp 20 07/15/24 08:15 BP 109/56 07/15/24 08:15 Pulse Ox 99 07/13/24 08:00 FiO2 - Labs CBC & Chem 7: 07/14/24 12:28
[2024-07-16] MEDS: MAG HYDROX/AL HYDROX/SIMETH 355 ML BOTTLE PO PRN (09:10)
[2024-07-16 09:43] VITALS: RESP 16
--- NOTE | 2024-07-17 09:22 | P.PN ---
Progress Note - Text Progress Note Date: 07/14/24 - . Consult date: 07/14/24 Consult:: 07/14/24 11:55 Subjective: The patient noted that her throat is getting worse. She could not sleep last night. She continues to feel depressed and suicidal but having no plans. She has been in her room most of the time since the Covid cases were reported. She has come negative twice. The last test was done yesterday. She continues to be depressed, withdrawn, lethargic, unmotivated, and suicidal without plan. Patient denies any auditory, visual hallucinations and denies any paranoia or delusions. Patient denies any side effects from the medications and has been compliant with meds. Objective: MSE: Alert and attentive. Orientation times three. Dressed and Groomed: Adequately. Pleasant and cooperative. Psychomotor Activity: Retarded. Speech: Normal in tone, quality, and quantity. Mood: Depressed and anxious. Affect: Blunted, constricted. SI or HI: Suicidal thoughts without plan \Perceptual disturbance: None. Thought Content: No paranoia or other delusional thinking noted. Thought Process: Normal. Cognition: Intact Judgment and Insight: Good Diagnosis: No change. Plan and Recommendations: Continue current Medications. Monitor MS and side effects of medications and adjust medications accordingly. Provide supportive psychotherapy. The patient provided psychoeducation and advised The patient provided Substance abuse counseling. Smoke cessation therapy. The patient to attend morrison activities. Medication Consent with explanation of risk/benefits and side effects: Explained and obtained
--- NOTE | 2024-07-17 14:22 | P.PN ---
Progress Note - Text Progress Note Date: 07/17/24 Subjective: The patient noted that her throat is 100/% improved. She stated that she was feeling better yesterday and informed Dr. Philip. She has not been coughing. Her vital signs are stable. In my opinion, the patient is to be transferred to non-Covid wing of [facility]. She is also Covid negative. She has been negative twice. However, the final directives to be obtained from Dr. Parker. Communication order placed for the RN The patient appeared in better spirits but complaint of feeling very depressed and suicidal without plan. The patient does not feel any difference since her admission. She reported sleeping and appetite. She reports being depressed, withdrawn, lethargic, unmotivated, and suicidal without plan. Patient denies any auditory, visual hallucinations and denies any paranoia or delusions. Patient denies any side effects from the medications and has been compliant with meds. Objective: MSE: Alert and attentive. Orientation times three. Dressed and Groomed: Adequately. Pleasant and cooperative. Psychomotor Activity: Normal. Speech: Normal in tone, quality, and quantity. Mood: Depressed and anxious. Affect: Blunted. SI or HI: Suicidal thoughts without plan Perceptual disturbance: None. Thought Content: No paranoia or other delusional thinking noted. Thought Process: Normal. Cognition: Intact Judgment and Insight: Poor Diagnosis: No change. Plan and Recommendations: Continue current Medications. Paxil increased to 30 mg daily. Added Protonix 40 mg po acbreakfast. Monitor MS and side effects of medications and adjust medications accordingly. Provide supportive psychotherapy. The patient provided psychoeducation and advised The patient provided Substance abuse counseling. Smoke cessation therapy. The patient to attend morrison activities. Medication Consent with explanation of risk/benefits and side effects: Explained and obtained
[2024-07-18] MEDS: PANTOPRAZOLE 40 MG TABLET PO SCH (08:33)
[2024-07-18] MEDS: PARoxetine 10 MG TAB PO SCH (08:35)
--- NOTE | 2024-07-18 15:10 | P.PN ---
Progress Note - Text Progress Note Date: 07/18/24 Subjective: The patient was sitting in the [facility] and chatting with the staff. She appeared in good spirits. The patient noted that her depression is improving. She does not feel as depressed as she felt when she got admitted to the hospital. Her suicidality has improved too. She has no active suicidal thoughts. She stated that suicidal thoughts have always been there in the background. The patient feels that she will be able can go back to work after discharge. She reported no side effects from the medications. She did not complain of sore throat or cough. Overall, her depression, suicidality and sore throat have improved. She has been compliant with medications. Objective: MSE: Alert and attentive. Orientation times three. Dressed and Groomed: Adequately. Pleasant and cooperative. Psychomotor Activity: Normal. Speech: Normal in tone, quality, and quantity. Mood: Depressed and anxiety have improved. Affect: Consistent with mood. SI or HI: Suicidal thoughts in the background without plan Perceptual disturbance: None. Thought Content: No paranoia or other delusional thinking noted. Thought Process: Normal. Cognition: Intact Judgment and Insight: Poor Diagnosis: No change. Plan and Recommendations: Continue current Medications. Monitor MS and side effects of medications and adjust medications accordingly. Provide supportive psychotherapy. The patient provided psychoeducation and advised The patient provided Substance abuse counseling. Smoke cessation therapy. The patient to attend morrison activities. Medication Consent with explanation of risk/benefits and side effects: Explained and obtained
--- NOTE | 2024-07-19 14:35 | P.PN ---
Progress Note - Text Progress Note Date: 07/19/24 Subjective: The patient was in her room. She was lying in her bed. She did not attend group. The patient noted that she will to groups this afternoon. She appeared in good spirits. Her depressive symptomatology continues to improve. She reported no side effects from the medications. She did not complain of sore throat or cough. Overall, her depression, suicidality and sore throat have improved. She has been compliant with medications. Objective: MSE: Alert and attentive. Orientation times three. Dressed and Groomed: Adequately. Pleasant and cooperative. Psychomotor Activity: Normal. Speech: Normal in tone, quality, and quantity. Mood: Depressed and anxiety have improved. Affect: Consistent with mood. SI or HI: No thoughts or plan, but stated that they are be always there in the background. Perceptual disturbance: None. Thought Content: No paranoia or other delusional thinking noted. Thought Process: Normal. Cognition: Intact Judgment and Insight: Fair Diagnosis: No change. Plan and Recommendations: Continue current Medications. Monitor MS and side effects of medications and adjust medications accordingly. Provide supportive psychotherapy. The patient provided psychoeducation and advised The patient provided Substance abuse counseling. Smoke cessation therapy. The patient to attend morrison activities. Medication Consent with explanation of risk/benefits and side effects: Explained and obtained
--- NOTE | 2024-07-20 15:02 | P.PN ---
Progress Note - Text Progress Note Date: 07/20/24 Subjective: The patient stated doing fine. Her mood remains normal. She was attending morning group. She had no specific complaint. She is showing consistent improvement She denied suicidal thought/plans. She was in good spirits. She denied feeling depressed, worthless or hopeless. She reported no URI symptoms. Her sleep and appetite have been good. Discussed discharge on Wednesday. The feels well enough to be discharged and resume work on Wednesday. She reported no side effects from the medications. Overall, her depression, suicidality and sore throat have improved. She has been compliant with medications. Objective: MSE: Alert and attentive. Orientation times three. Dressed and Groomed: Adequately. Pleasant and cooperative. Psychomotor Activity: Normal. Speech: Normal in tone, quality, and quantity. Mood: I am good. Affect: Consistent with mood. SI or HI: None. Perceptual disturbance: None. Thought Content: No paranoia or other delusional thinking noted. Thought Process: Normal. Cognition: Intact Judgment and Insight: Fair Diagnosis: No change. Plan and Recommendations: Continue current Medications. Monitor MS and side effects of medications and adjust medications accordingly. Provide supportive psychotherapy. The patient provided psychoeducation and advised The patient provided Substance abuse counseling. Smoke cessation therapy. The patient to attend morrison activities. Medication Consent with explanation of risk/benefits and side effects: Explained and obtained
[2024-07-21 05:55] VITALS: BP 102/70; PULSE 82; TEMP 97
--- NOTE | 2024-07-21 12:45 | P.DS ---
Providers Date of admission: 06/29/24 02:00 Expected date of discharge: 07/21/24 Attending physician: Prakash Blake MD Consults: 07/01/24 15:34 Consult Physician Routine Consulting Provider: León Drummond Consult Reason/Comments: medical management Do you want consulting provider notified?: Already Contacted Primary care physician: Stated None - Discharge Diagnosis(es) (1) Major depressive disorder, recurrent severe without psychotic features Current Visit: Yes Status: Acute Priority: High (2) Marijuana abuse Current Visit: Yes Status: Acute Priority: Medium Hospital Course: Discharge Summary Identifying data: Ms. Lambert is a 34 years old, single, white female, who lives in [place], [place] HPI: The patient noted that she has been very depressed for last few weeks. She has been feeling suicidal and tried to hang herself with a belt on a door knob. Her boyfriend called the EMS and she was brought to the hospital. The patient reported symptoms of feeling sad, loss of motivation, self-neglect, lying in bed, sleep disturbance, loss of interest, feeling of worthlessness, hopelessness, and suicidal ideations with plan to hang herself. The patient had a breakthrough episode. She has been compliant with medications. Past psychiatric history: The patient had had number od admissions in the past for similar admissions. This is her 4th admission to this hospital. She has been going to out-pt treatment on a regular basis in between hospitalizations. Drug and Alcohol abuse history: Marijuana abuse. Dened any other drug or alcohol abuse. Past Medical History Asthma. Hospital Course: After admission, the patient was involved in pharmacotherapy, morrison milieu, and individual psychodynamic psychotherapy. The patient was started on Paxil, Abilify, and Lamictal. The dose was titrated to obtain the desire effects. The patient tolerated medications well without any side effects. The patient was also involved in morrison activities. The patient attended the groups and participated well. The patient interacted with peers and staff well. The patient slowly started showing improvement. The hospital course was uneventful. The patient symptoms of depression, suicidal and homicidal ideations abated. The patient was stable to be discharged to out-patient care. The patient did not have any guns or weapons in possession at home. MSE: Alert and attentive. Orientation times three Dressed and Groomed: Appropriately. Pleasant and cooperative. Psychomotor Activity: Normal. Speech: Normal in tone, quality, and quantity. Mood: Depressed and anxious. Affect: Sad and anxious. SI or HI: Admitted to suicidal thoughts with plan. Perceptual disturbance: None. Thought Content: No paranoia or other delusional thinking noted. Thought Process: Normal. Cognition: Intact Judgment and Insight: Poor. AIMS: Normal Labs: Available labs reviewed. Diagnosis: Major depressive disorder, severe, recurrent. Plan: The patient to be discharged today. The patient has attained good improvement since admission. He is stable to be followed as an outpatient. The patient is not suicidal or Homicidal. He does not pose any harm to self or others. The patient remains at a greater risk of self-harm or harm to others than general population on a chronic basis due to psychiatric illness and substance abuse. The patient will continue taking following medication post discharge. The importance of medication compliance and maintaining regular appointments at psychiatric out-pt and PCP clinic was explained and encouraged. The patient was also advised to seek substance abuse counseling and attend NA meetings. The understood and agreed with the recommendations. general lithographic worker to arrange for and conduct family meeting to ensure safety upon discharge and answer any questions. The social work instructor to arrange for patients follow-up appointments at [facility] for psychiatric care along with follow-up with PCP. The patient provided psychoeducation. Advised to call 911 or go to nearest ED or call this hospital in case of acute worsening of symptomatology, severe side effects or having suicidal, homicidal thoughts and feeling unsafe at home. Patient Condition at Discharge: Stable Plan - Discharge Summary New Discharge Prescriptions: New PARoxetine [Paxil] 30 mg PO DAILY 15 Days #45 tab Pantoprazole [Protonix] 40 mg PO AC-BRKFST 15 Days #15 tab Continue ARIPiprazole [Abilify] 10 mg PO HS 15 Days #15 tab lamoTRIgine [LaMICtal] 150 mg PO DAILY 15 Days #23 tab Mirtazapine [Remeron] 15 mg PO HS 15 Days #15 tab Discontinued fluvoxaMINE [Luvox] 100 mg PO HS 15 Days #30 tab Discharge Medication List ARIPiprazole [Abilify] 10 mg PO HS 15 Days #15 tab 05/30/24 [Rx] Mirtazapine [Remeron] 15 mg PO HS 15 Days #15 tab 05/30/24 [Rx] lamoTRIgine [LaMICtal] 150 mg PO DAILY 15 Days #23 tab 05/30/24 [Rx] PARoxetine [Paxil] 30 mg PO DAILY 15 Days #45 tab 07/21/24 [Rx] Pantoprazole [Protonix] 40 mg PO AC-BRKFST 15 Days #15 tab 07/21/24 [Rx] Follow up Appointment(s)/Referral(s): León Drummond MD [STAFF PHYSICIAN] - 1 Week Derrick Lopez MD [STAFF PHYSICIAN] - 1 Week Activity/Diet/Wound Care/Special Instructions: Avoid the use of street drugs and alcohol. Take all medications as prescribed. When you are in need of refills on your medications, please contact your medical provider and/or outpatient psychiatrist/provider to have this done. Please go to your scheduled outpatient appointment for aftercare treatment. If symptoms return or become worse, call the crisis line at and/or go to the nearest emergency room for evaluation. National Suicide Hotline 844 Discharge Disposition: HOME SELF-CARE
--- NOTE | 2024-08-12 12:01 | PN ---
PROGRESS NOTE The patient is seen in 311, bed 2. [place] was seen. Chart was reviewed. Case was discussed with nursing staff. The patient states that she has been hospitalized multiple times in the past for suicidal ideation. States that she has made progress and that she no longer feels severely depressed. She said that she has had multiple problems with her medications and that she has also problems with followup. She said that she has no intention of harming herself and that she feels that she is making good progress. She said that she is ready to go home most likely on Wednesday, and that she and her doctors made arrangements for appropriate followup as outpatient. She said that overall she has made good progress. DIAGNOSTIC IMPRESSION: Bipolar disorder, mixed type, improved. PLAN: The patient reports that she has tentative discharge date most likely on Wednesday or Wednesday. Overall, she said that she has made good progress and is not feeling suicidal or homicidal. She overall feels positive. We will continue current meds as prescribed, support, and direction given. MMODL / IJN: [id number] /
== END 2024-07-21 15:26 | disposition home or self-care (01) | DRG 751 ==
LOC: 3MHU 02:00 → 6NMEDSUR 07-01 23:47 → 3MHU 07-02 04:03
PROVIDERS: ADMIT Psychiatry & Neurology Psychiatry; ATTEND Psychiatry & Neurology Psychiatry
DX: F33.2 Major depressive disorder, recurrent severe without psychotic features (principal); F12.10 Cannabis abuse, uncomplicated; F17.210 Nicotine dependence, cigarettes, uncomplicated; F17.290 Nicotine dependence, other tobacco product, uncomplicated; E66.9 Obesity, unspecified; J45.909 Unspecified asthma, uncomplicated; R45.851 Suicidal ideations; F41.0 Panic disorder [episodic paroxysmal anxiety]; N91.2 Amenorrhea, unspecified; R51.9 Headache, unspecified; Z79.899 Other long term (current) drug therapy; Z71.51 Drug abuse counseling and surveillance of drug abuser; Z71.3 Dietary counseling and surveillance; Z71.6 Tobacco abuse counseling; Z68.36 Body mass index [BMI] 36.0-36.9, adult; Z81.8 Family history of other mental and behavioral disorders
CPT/HCPCS: 84703; 85025; 87635; 87636; 87651; 93005; 99285

== ENCOUNTER 2025-02-27 10:11 | Inpatient (IN) | payer MEDICAID, OTHER ==
--- NOTE | 2025-02-27 13:06 | ED ---
General Adult HPI - General Chief complaint: Psychiatric Symptoms Stated complaint: mental health Time Seen by Provider: 02/27/25 10:20 Source: patient, RN notes reviewed, old records reviewed Mode of arrival: ambulatory Limitations: no limitations - History of Present Illness Initial comments: This is a 35-year-old female who presents to the emergency department claiming that God has been talking to her and telling her that she is going to get gauged today at 12. He also told her to come to the hospital and get evaluated. Patient states she is got big news but she is not able to let it out until she investigates the news further. Patient states she does not know who is going to ask the other 1 to be it is either her to ask her boyfriend or boyfriend to ask her but she does not know which. Patient states that he is somewhere in the hospital right now waiting for this moment because God says this can happen exactly at noon today. Patient has no physical complaints today. Patient states she is a complete serenity right now and does not feel as though she needs to be at the hospital but she is going to come because God wants her to - Related Data Home Medications Medication Instructions Recorded Confirmed Ibuprofen [Motrin] 800 mg PO Q6H PRN 02/27/25 02/27/25 Levonorgestrel/Ethin.estradiol 1 tab PO DAILY 02/27/25 02/27/25 [Lutera-28 Tablet] Omeprazole 20 mg PO DAILY 02/27/25 02/27/25 PARoxetine HCL [Paxil] 30 mg PO DAILY 02/27/25 02/27/25 Allergies Allergy/AdvReac Type Severity Reaction Status Date / Time No Known Allergies Allergy Verified 02/27/25 12:01 Review of Systems ROS Statement: Those systems with pertinent positive or pertinent negative responses have been documented in the HPI. ROS Other: All systems not noted in ROS Statement are negative. Past Medical History Past Medical History: Asthma History of Any Multi-Drug Resistant Organisms: None Reported Past Surgical History: No Surgical Hx Reported Past Anesthesia/Blood Transfusion Reactions: No Reported Reaction Past Psychological History: Anxiety, Depression Smoking Status: Current every day smoker, Vaper Past Alcohol Use History: Rare Past Drug Use History: Marijuana - Past Family History Mother Family Medical History: No Reported History Additional Family Medical History / Comment(s): Hx of depression, committed suicide Father Family Medical History: No Reported History Additional Family Medical History / Comment(s): Hx of depression, committed suicide General Exam - General Exam Comments Initial Comments: GENERAL: Patient is well-developed and well-nourished. Patient is nontoxic and well- hydrated and is in no acute distress. ENT: Neck is soft and supple. No significant lymphadenopathy is noted. Oropharynx is clear. Moist mucous membranes. Neck has full range of motion without eliciting any pain. EYES: The sclera were anicteric and conjunctiva were pink and moist. Extraocular movements were intact and pupils were equal round and reactive to light. Eyelids were unremarkable. PULMONARY: Unlabored respirations. Good breath sounds bilaterally. No audible rales rhonchi or wheezing was noted. CARDIOVASCULAR: There is a regular rate and rhythm without any murmurs gallops or rubs. ABDOMEN: Soft and nontender with normal bowel sounds. SKIN: Skin is clear with no lesions or rashes and otherwise unremarkable. NEUROLOGIC: Patient is alert and oriented x3. Cranial nerves II through XII are grossly intact. Motor and sensory are also intact. Normal speech, volume and content. Symmetrical smile. MUSCULOSKELETAL: Normal extremities with adequate strength and full range of motion. LYMPHATICS: No significant lymphadenopathy is noted PSYCHIATRIC: Patient was talking about God directing her as to what to do and she was acting somewhat bizarre and anxious. Patient states she had complete serenity right now but came in because got instructed to come in to be evaluated and also to meet her boyfriend so that some sort of engagement between the 2 would occur. Limitations: no limitations Course Vital Signs 02/27/25 10:13 Temperature 98.6 F Pulse Rate 85 Respiratory 18 Rate Blood Pressure 160/94 O2 Sat by Pulse 100 Oximetry Medical Decision Making - Medical Decision Making Was pt. sent in by a medical professional or institution (, PA, ESCALATOR MECHANIC, urgent care, hospital, or long-term...) When possible be specific @ -No Did you speak to anyone other than the patient for history (EMS, parent, family, police, friend...)? What history was obtained from this source @ -No Did you review nursing and triage notes (agree or disagree)? Why? @ -I reviewed and agree with nursing and triage notes Were old charts reviewed (outside hosp., previous admission, EMS record, old EKG, old radiological studies, urgent care reports/EKG's, long-term records)? Report findings @ -No old charts were reviewed Differential Diagnosis? @ -Differential Mental Health Depression, anxiety, bipolar, psychosis, schizophrenia, borderline personality, situational depression, adjustment disorder, behavioral disorder, brain tumor, malingering, substance abuse, encephalopathy, medication reaction, dementia, hypothyroidism, degenerative neurologic disorder, lupus.... This is not meant to be all-inclusive list EKG interpreted by me (3pts min.). @ -As above X-rays interpreted by me (1pt min.). @ -None done CT interpreted by me (1pt min.). @ -None done U/S interpreted by me (1pt. min.). @ -None done What testing was considered but not performed or refused? (CT, X-rays, U/S, labs)? Why? @ -None What meds were considered but not given or refused? Why? @ -None Did you discuss the management of the patient with other professionals (professionals i.e. , PA, ESCALATOR MECHANIC, lab, RT, psych nurse, group social worker, head teacher, teacher, correctional officer lieutenant, lining caser)? Give summary @ -EPS evaluated the patient and determined the patient needed to be admitted Was smoking cessation discussed for >3mins.? @ -No Was critical care preformed (if so, how long)? @ -No Were there social determinants of health that impacted care today? How? (Homelessness, low income, unemployed, alcoholism, drug addiction, transportation, low edu. Level, literacy, decrease access to med. care, assisted, rehab)? @ -No Was there de-escalation of care discussed even if they declined (Discuss DNR or withdrawal of care, Hospice)? DNR status @ -No What co-morbidities impacted this encounter? (DM, HTN, Smoking, COPD, CAD, Cancer, CVA, ARF, Chemo, Hep., AIDS, mental health diagnosis, sleep apnea, morbid obesity)? @ -None Was patient admitted / discharged? Hospital course, mention meds given and route, prescriptions, significant lab abnormalities, going to OR and other pertinent info. @ -Patient will be admitted to the psychiatric unit Undiagnosed new problem with uncertain prognosis? @ -No Drug Therapy requiring intensive monitoring for toxicity (Heparin, Nitro, Insulin, Cardizem)? @ -No Were any procedures done? @ -No Diagnosis/symptom? @ -Acute psychosis Acute, or Chronic, or Acute on Chronic? @ -Acute Uncomplicated (without systemic symptoms) or Complicated (systemic symptoms)? @ -Complicated Side effects of treatment? @ -No Exacerbation, Progression, or Severe Exacerbation? @ -No Poses a threat to life or bodily function? How? (Chest pain, [place], [place], pneumonia, PE, COPD, DKA, ARF, appy, cholecystitis, CVA, Diverticulitis, Homicidal, Suicidal, threat to staff... and all critical care pts) @ -No Disposition Clinical Impression: Acute psychosis Disposition: ADMITTED IP TO THIS HOSP Referrals: León Drummond MD [Primary Care Provider] - 1-2 days Time of Disposition: 13:05
[2025-02-27 13:33] LABS: Amphetamine Screen,Urine Not Detected (NotDetected); Barbiturate Screen,Urine Not Detected (NotDetected); Benzodiazepines Screen,Urine Not Detected (NotDetected); Cocaine Screen,Urine Not Detected (NotDetected); Methadone Screen, Urine Not Detected (NotDetected); Opiate Screen,Urine Not Detected (NotDetected); Oxycodone Screen, Urine Not Detected (NotDetected); Phencyclidine Screen,Urine Not Detected (NotDetected); Tricyclic Antidepressant,Urine Not Detected (NotDetected); Urn Cannabinoid Scrn Detected (NotDetected)
[2025-02-27 14:00] LABS: Influenza A Not Detected (Not Detectd); Influenza B Not Detected (Not Detectd); RSV Not Detected (Not Detectd)
[2025-02-27] MEDS ORDERED: hydrOXYzine HCL 50 MG/ML 1 ML VIAL IM PRN (14:27)
[2025-02-27] MEDS ORDERED: OLANZapine 10 MG VIAL IM PRN (14:27)
[2025-02-27] MEDS ORDERED: MAG HYDROX/AL HYDROX/SIMETH 355 ML BOTTLE PO PRN (14:27)
[2025-02-27] MEDS ORDERED: MAGNESIUM HYDROXIDE 2,400 MG/30 ML CUP PO PRN (14:27)
[2025-02-27] MEDS: IBUPROFEN 800 MG TAB PO PRN (15:50)
[2025-02-27 15:59] LABS: Appearance,Urine Clear (Clear); Bilirubin,Urine Negative (Negative); Blood,Urine Negative (Negative); Color,Urine Colorless; Glucose,Urine (UA) Negative (Negative); Ketones,Urine 1+ (Negative); Leukocyte Esterase,Urine Negative (Negative); Nitrite,Urine Negative (Negative); Protein,Urine Negative (Negative); Specific Gravity,Urine 1.008 (1.001-1.035); Urobilinogen,Urine <2.0 mg/dL (<2.0)
[2025-02-27] MEDS: hydrOXYzine HCL 25 MG TAB PO PRN (19:22)
[2025-02-27] MEDS: ACETAMINOPHEN TAB 325 MG TAB PO PRN (20:35)
[2025-02-27] MEDS: OLANZapine 10 MG TAB PO PRN (21:55)
[2025-02-27] MEDS: chlorproMAZINE 25 MG TAB PO STA (22:59)
[2025-02-28 07:49] LABS: Basophils # (A) 0.04 10*3/uL (0.00-0.10); Basophils % (A) 0.4 %; Eosinophils # (A) 0.28 10*3/uL (0.04-0.35); Eosinophils % (A) 2.8 %; HCT 42.6 % (37.2-46.3); HGB 14.3 g/dL (12.0-15.0); Lymphocytes # (A) 2.81 10*3/uL (0.90-5.00); Lymphocytes % (A) 28.1 %; MCH 30.8 pg (27.0-32.0); MCHC 33.6 g/dL (32.0-37.0); MCV 91.6 fL (80.0-97.0); Mean Platelet Volume 9.9 fL (9.5-12.2); Monocytes # (A) 0.95 10*3/uL (0.20-1.00); Monocytes % (A) 9.5 %; Neutrophils # (A) 5.89 10*3/uL (1.80-7.70); Neutrophils % (A) 58.8 %; Platelet Count 275 10*3/uL (140-440); RBC 4.65 10*6/uL (4.10-5.20); RDW 12.9 % (11.5-14.5); WBC 10.01 10*3/uL (4.50-10.00)
[2025-02-28 08:05] LABS: ALT 31 U/L (4-34); AST 52 U/L (14-36); African American GFR (CKD) >90 (>60 ml/min/1.73 sqM); Alkaline Phosphatase 70 U/L (38-126); Anion Gap 8 mmol/L; Bilirubin, Delta 0.3 mg/dL (0.0-0.2); Bilirubin,Unconjugated 0.2 mg/dL (0.0-1.1); Blood Urea Nitrogen 10 mg/dL (7-17); Calcium 9.6 mg/dL (8.4-10.2); Carbon Dioxide 28 mmol/L (22-30); Chloride 108 mmol/L (98-107); Glucose 117 mg/dL (74-99); Non-African American GFR(CKD) >90 (>60 ml/min/1.73 sqM); Potassium 3.4 mmol/L (3.5-5.1); Sodium 144 mmol/L (137-145); Total Bilirubin 0.5 mg/dL (0.2-1.3)
[2025-02-28] MEDS: PANTOPRAZOLE 40 MG TABLET PO SCH (09:12)
[2025-02-28] MEDS: PARoxetine 10 MG TAB PO SCH (09:12)
[2025-02-28] MEDS: NICOTINE 14MG/24HR PATCH TRANSDERM SCH (09:13)
[2025-02-28] MEDS: LEVONORGESTREL PO SCH (09:15)
[2025-02-28] MEDS: ETHIN ESTRADIOL PO SCH (09:15)
[2025-02-28 10:34] LABS: LDL Cholesterol,Calculated 135.8 mg/dL (0.0-131.0)
[2025-02-28] MEDS: ARIPiprazole 10 MG TAB PO SCH (15:01)
[2025-02-28] MEDS: NICOTINE GUM (POLACRILEX) 2 MG GUM BUCCAL PRN (15:01)
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
[2025-03-02] MEDS: ARIPiprazole 5 MG TAB PO ONE (12:54)
[2025-03-03] MEDS: ARIPiprazole 15 MG TAB PO SCH (09:51)
--- NOTE | 2025-03-03 13:45 | P.PN ---
Progress Note - Text Progress Note Date: 03/03/25 Dictation was produced using [employer] dictation software. Please excuse any grammatical, word or spelling errors. Interval history: Patient was seen in the hallway and was directable and agreeable to speak with the senior mortgage underwriter in the office for psychiatric follow-up. The patient states that she is feeling good today, she admitted to good sleep last night. She reported that depression and anxiety to be at the low side, she rated both at 0/10. She denied any current SI/HI or self harm. She admitted to good appetite. When asked about AVH, she states that "just taking to God" "he is telling me everything will be okay." Denied any paranoia. She has been compliant with her medications, denied any side effects. She states that she feels safe in the unit, and is getting along well with every one. She states that her boyfriend told Dr. Lopez that she is not at her baseline, she states that she understands his concerns and reported that she will talk to him at some point and will reassure him. Mental Status Exam: General Appearance: Patient appears to be stated age is alert, directable, and c ooperative. She wears glasses Behavior: Patient is calmly seated without any agitated behavior. Speech: Patient's speech is fluent and nonpressured. Mood/Affect: Mood is improving mildly, affect is congruent and constricted. Suicidality/Homicidality: Patient denies having any suicidal or homicidal ideation intent or plan. Perceptions: Patient denies any visual hallucinations, she denied any auditory hallucination however it is reported that she has chronic auditory hallucination, positive in nature Though content/process: There is no evidence of any delusional thought content and thought process is linear and goal-directed. Memory and concentration: AOX3, grossly intact for the purposes of this session Judgment and insight: Improving mildly Assessment Bipolar 1 disorder, current episode manic with psychotic features Cannabis use disorder Nicotine dependence Assessment/Plan: Continue with current diagnosis. Patient continues to meet criteria for inpatient psychiatric admission for symptom stabilization and safety. Patient will be maintained on current psychotropic medication regimen which include Abilify 15 mg p.o. daily which was increased on Wednesday, and Paxil 30 mg p.o. daily, no changes today. Monitor for medication compliance and for any psychotropic medication side effects. Will continue to monitor ongoing response to treatment. Encouraged participation in milieu.
--- NOTE | 2025-03-04 09:03 | P.PN ---
Progress Note - Text Progress Note Date: 03/04/25 Dictation was produced using [employer] dictation software. Please excuse any grammatical, word or spelling errors. Interval history: Patient was seen in the hallway and was directable and agreeable to speak with the bond writer in the office for psychiatric follow-up. The patient states that she is feeling "wonderful today, still calm and peaceful." States that depression and anxiety are at the low side, she rated both at 0/10. She denied any current SI/HI or self harm, she reported that her sleep was not bad last night, per report pt was pacing the hallway last night, and sleep was reported at 1 hours, pt states that she slept more than that, and she was waking up frequently, she admitted to good appetite. She denied any AVH, she states that she is a spiritual person and usually she talk with God however she reported that it is usually positive and supportive chronic in nature. She reported that she feel safe and is getting along well with peers in the unit. She has been compliant with her medications, denied any side effects, she denied any muscle stiffness, rigidity, abnormal movement, or drooling. She states that she got in contact with her boyfriend and he feels like things are getting better. Mental Status Exam: General Appearance: Patient appears to be stated age is alert, directable, and cooperative. She wears glasses Behavior: Patient is calmly seated without any agitated behavior. Speech: Patient's speech is fluent and nonpressured. Mood/Affect: Mood is improving mildly, affect is congruent and constricted. Suicidality/Homicidality: Patient denies having any suicidal or homicidal ideation intent or plan. Perceptions: Patient denies any visual hallucinations, she denied any auditory hallucination however it is reported that she has chronic auditory hallucination, positive in nature Though content/process: There is no evidence of any delusional thought content and thought process is linear and goal-directed. Memory and concentration: AOX3, grossly intact for the purposes of this session Judgment and insight: Improving mildly Assessment Bipolar 1 disorder, current episode manic with psychotic features Cannabis use disorder Nicotine dependence Assessment/Plan: Continue with current diagnosis. Patient continues to meet criteria for inpatient psychiatric admission for symptom stabilization and safety. Patient will be maintained on current psychotropic medication regimen which include Abilify 15 mg p.o. daily which was increased on Wednesday, and Paxil 30 mg p.o. daily, no changes today. The patient denied any current side effects, she denied any muscle stiffness, rigidity, abnormal movement, or drooling. Monitor for medication compliance and for any psychotropic medication side effects. Will continue to monitor ongoing response to treatment. Encouraged participation in milieu.
[2025-03-05] MEDS: ARIPiprazole 5 MG TAB PO ONE (09:54)
--- NOTE | 2025-03-05 12:17 | P.PN ---
Progress Note - Text Progress Note Date: 03/05/25 Interval History: Patient was seen wandering the hallways and was directable and agreeable to sp maranda with technical publications writer in the office. Patient seen with her hair braided, appeared calm. Patient has been here with her medications and did express feeling well today. She states things are better with her and her partner. She was encouraged to refrain from hugging her peers on the unit to which she acknowledged. Patient took the news of not being discharged today well, more stable than previously. Psychoeducation provided on her mental health diagnoses with the associated medications. At this time patient denies any suicidal or homicidal ideations, intent or plan. Patient denies any auditory, visual hallucinations and denies any paranoia or delusions. Patient denies any side effects from the medications and has been compliant with meds. Mental Status Exam: General Appearance: Patient appears to be stated age is alert, directable, and cooperative. She has her hair braided Behavior: Patient is calmly seated without any agitated behavior. Speech: Patient's speech is fluent and nonpressured. Mood/Affect: Mood is improving mildly, affect is congruent and constricted. Suicidality/Homicidality: Patient denies having any suicidal or homicidal ideation intent or plan. Perceptions: Patient denies any visual hallucinations and denies any auditory hallucinations Though content/process: There is no evidence of any delusional thought content and thought process is linear and goal-directed. Memory and concentration: AOX3, grossly intact for the purposes of this session Judgment and insight: Improving mildly Assessment Bipolar 1 disorder, current episode manic with psychotic features Cannabis use disorder Nicotine dependence Plan: -Patient continues to meet criteria for inpatient psychiatric admission for symptom stabilization and safety. Patient has signed adult voluntary form and medication consent and was placed in patient's chart. -Medications: Increase Abilify to 20 mg daily today for bipolar disorder, continue Paxil 30 mg daily for depression -When necessary hydroxyzine and Zyprexa for agitation/aggression. -Labs: Reviewed -NRT - nicotine patch -SW on board for discharge planning. Encouraged the patient to participate in milieu. Anticipate discharge home tomorrow. [facility] will arrange direct transportation to her intake appointment tomorrow afternoon
[2025-03-05 21:30] VITALS: RESP 18
[2025-03-06 09:10] VITALS: BP 131/92; PULSE 93; TEMP 97.8
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
== END 2025-03-06 11:49 | disposition home or self-care (01) | DRG 750 ==
LOC: EC 10:11 → 3MHU 14:16
PROVIDERS: ADMIT Psychiatry & Neurology Psychiatry; ATTEND Psychiatry & Neurology Psychiatry
DX: F31.2 Bipolar disorder, current episode manic severe with psychotic features (principal); F41.9 Anxiety disorder, unspecified; J45.909 Unspecified asthma, uncomplicated; R45.851 Suicidal ideations; T75.3XXA Motion sickness, initial encounter; F17.210 Nicotine dependence, cigarettes, uncomplicated; F12.10 Cannabis abuse, uncomplicated; X00.0XXA Exposure to flames in uncontrolled fire in building or structure, initial encounter; Z56.0 Unemployment, unspecified; Z79.899 Other long term (current) drug therapy; Z28.21 Immunization not carried out because of patient refusal
CPT/HCPCS: 80053; 80061; 80306; 81003; 81025; 82075; 82248; 83036; 84443; 85025; 87636; 99285

== ENCOUNTER 2025-03-29 15:56 | Emergency (ER) | payer OTHER ==
[2025-03-29 16:06] VITALS: TEMP 98.6
--- NOTE | 2025-03-29 17:08 | ED ---
General Adult HPI - General Chief complaint: Psychiatric Symptoms Stated complaint: Mental health Time Seen by Provider: 03/29/25 16:35 Source: patient, EMS, RN notes reviewed, old records reviewed Mode of arrival: EMS Limitations: no limitations - History of Present Illness Initial comments: Patient is a 35-year-old female who presents emergency department for psychiatric evaluation. Patient states she has a history of depression and thinks she might be manic. However she has been sleeping. Just states she wants to make sure she is not going to going to [employer] again. Denies any chest pain or shortness of breath. Has no other acute complaints. Denies any suicidal homicidal ideations, intents, plans. Denies any hallucinations. P resents for further evaluation at this time. - Related Data Home Medications Medication Instructions Recorded Confirmed Levonorgestrel/Ethin.estradiol 1 tab PO DAILY 02/27/25 02/27/25 [Lutera-28 Tablet] Previous Rx's Medication Instructions Recorded Nicotine Gum (Polacrilex) 2 mg BUCCAL Q4HR PRN pieceofgum 03/02/25 [Nicorette] PARoxetine HCL [Paxil] 30 mg PO DAILY 30 Days #30 tab 03/02/25 Pantoprazole [Protonix] 40 mg PO AC-BRKFST 30 Days #30 tab 03/02/25 ARIPiprazole [Abilify] 20 mg PO DAILY 30 Days #30 tab 03/06/25 Allergies Allergy/AdvReac Type Severity Reaction Status Date / Time No Known Allergies Allergy Verified 03/29/25 17:11 Review of Systems ROS Statement: Those systems with pertinent positive or pertinent negative responses have been documented in the HPI. Review of Systems: CONST: Denies fever EYES: Denies blurry vision ENT: Denies nasal congestion C/V: Denies Chest pain RESP: Denies shortness of breath GI: Denies abdominal pain : Denies dysuria SKIN: Denies rash. MSK: Denies joint pain. NEURO: Denies headache ROS Other: All systems not noted in ROS Statement are negative. Past Medical History Past Medical History: Asthma History of Any Multi-Drug Resistant Organisms: None Reported Past Surgical History: No Surgical Hx Reported Past Anesthesia/Blood Transfusion Reactions: No Reported Reaction Past Psychological History: Anxiety, Bipolar, Depression, PTSD Smoking Status: Current every day smoker, Vaper Past Alcohol Use History: Occasional Past Drug Use History: Marijuana - Past Family History Mother Family Medical History: No Reported History Additional Family Medical History / Comment(s): Hx of depression, committed suicide Father Family Medical History: No Reported History Additional Family Medical History / Comment(s): Hx of depression, committed suicide General Exam - General Exam Comments Initial Comments: General: Appears in no acute distress. HEAD: Normal with no signs of head trauma. EYES: EOMI. ENT: Hearing grossly intact. RESPIRATORY: No respiratory distress. C/V: Regular rate and rhythm. ABD: Abdomen is nondistended. EXT: No obvious deformity. SKIN: No rashes or lesions observed on exposed skin. NEURO: Alert and oriented. Limitations: no limitations Course Vital Signs 03/29/25 03/29/25 15:59 17:42 Temperature 98.6 F Pulse Rate 72 101 H Respiratory 16 19 Rate Blood Pressure 114/56 120/64 O2 Sat by Pulse 99 99 Oximetry Medical Decision Making - Medical Decision Making Was pt. sent in by a medical professional or institution (, PA, CROSS TIE CUTTER, urgent care, hospital, or jail...) When possible be specific @ -No Did you speak to anyone other than the patient for history (EMS, parent, family, police, friend...)? What history was obtained from this source @ -No Did you review nursing and triage notes (agree or disagree)? Why? @ -I reviewed and agree with nursing and triage notes Were old charts reviewed (outside hosp., previous admission, EMS record, old EKG, old radiological studies, urgent care reports/EKG's, jail records)? Report findings @ -Old charts reviewed showing patient was recently evaluated for mental health 7 days ago. She was discharged home. Differential Diagnosis (chest pain, altered mental status, abdominal pain women, abdominal pain men, vaginal bleeding, weakness, fever, dyspnea, syncope, headache, dizziness, GI bleed, back pain, seizure, CVA, palpatations, mental health, musculoskeletal)? @ -Differential Mental Health Depression, anxiety, bipolar, psychosis, schizophrenia, borderline personality, situational depression, adjustment disorder, behavioral disorder, brain tumor, malingering, substance abuse, encephalopathy, medication reaction, dementia, hypothyroidism, degenerative neurologic disorder, lupus.... This is not meant to be all-inclusive list EKG interpreted by me (3pts min.). @ -None done X-rays interpreted by me (1pt min.). @ -None done CT interpreted by me (1pt min.). @ -None done U/S interpreted by me (1pt. min.). @ -None done What testing was considered but not performed or refused? (CT, X-rays, U/S, labs)? Why? @ -None What meds were considered but not given or refused? Why? @ -None Did you discuss the management of the patient with other professionals (professionals i.e. , PA, CROSS TIE CUTTER, lab, RT, psych nurse, drug abuse social worker, tourist escort, teacher, department of natural resources officer, casework supervisor)? Give summary @ -No Was smoking cessation discussed for >3mins.? @ -No Was critical care preformed (if so, how long)? @ -No Were there social determinants of health that impacted care today? How? (Homelessness, low income, unemployed, alcoholism, drug addiction, transportation, low edu. Level, literacy, decrease access to med. care, prison, rehab)? @ -No Was there de-escalation of care discussed even if they declined (Discuss DNR or withdrawal of care, Hospice)? DNR status @ -No What co-morbidities impacted this encounter? (DM, HTN, Smoking, COPD, CAD, Cancer, CVA, ARF, Chemo, Hep., AIDS, mental health diagnosis, sleep apnea, morbid obesity)? @ -None Was patient admitted / discharged? Hospital course, mention meds given and route, prescriptions, significant lab abnormalities, going to OR and other pertinent info. @ -Patient presents for mental health evaluation. No suicidal or homicidal ideations, times complaints. Denies any hallucinations. BAT is 0. UDS is pending. Vitals within acceptable limits. At this time patient is medically cleared for evaluation by psychiatry. Disposition pending psychiatric evaluation. EPS Fallon notified. She evaluated patient and after discussion with psychiatry determined that patient does not meet inpatient psychiatric arteria. Patient be discharged home with safety plan. Patient was in agreement this plan. Undiagnosed new problem with uncertain prognosis? @ -No Drug Therapy requiring intensive monitoring for toxicity (Heparin, Nitro, Insulin, Cardizem)? @ -No Were any procedures done? @ -No Diagnosis/symptom? @ -Encounter for psychiatric evaluation Acute, or Chronic, or Acute on Chronic? @ -Acute Uncomplicated (without systemic symptoms) or Complicated (systemic symptoms)? @ -Uncomplicated Side effects of treatment? @ -No Exacerbation, Progression, or Severe Exacerbation? @ -No Poses a threat to life or bodily function? How? (Chest pain, [place], [place], pneumonia, PE, COPD, DKA, ARF, appy, cholecystitis, CVA, Diverticulitis, Homicidal, Suicidal, threat to staff... and all critical care pts) @ -Unlikely at this time Disposition Clinical Impression: Encounter for psychiatric assessment Disposition: HOME SELF-CARE Condition: Good Additional Instructions: follow safety plan Is patient prescribed a controlled substance at d/c from ED?: No Referrals: León Drummond MD [Primary Care Provider] - 1-2 days Time of Disposition: 17:08
[2025-03-29 17:44] VITALS: BP 120/64; PULSE 101; RESP 19
[2025-03-29 18:12] LABS: Amphetamine Screen,Urine Not Detected (NotDetected); Barbiturate Screen,Urine Not Detected (NotDetected); Benzodiazepines Screen,Urine Not Detected (NotDetected); Cocaine Screen,Urine Not Detected (NotDetected); Methadone Screen, Urine Not Detected (NotDetected); Opiate Screen,Urine Not Detected (NotDetected); Oxycodone Screen, Urine Not Detected (NotDetected); Phencyclidine Screen,Urine Not Detected (NotDetected); Tricyclic Antidepressant,Urine Not Detected (NotDetected); Urn Cannabinoid Scrn Detected (NotDetected)
== END 2025-03-29 18:50 | disposition home or self-care (01) ==
LOC: EC 15:56
DX: Z04.6 Encounter for general psychiatric examination, requested by authority (principal); F17.290 Nicotine dependence, other tobacco product, uncomplicated
CPT/HCPCS: 80306; 99285

== ENCOUNTER 2025-04-11 17:59 | Inpatient (IN) | payer MEDICAID, OTHER ==
--- NOTE | 2025-04-11 18:23 | ED ---
Psych HPI - General Source: patient, RN notes reviewed Mode of arrival: ambulatory <Janice Hills - Last Filed: 04/11/25 18:23> <Cisco Griffith - Last Filed: 04/11/25 20:59> <Neto Doss - Last Filed: 04/11/25 23:17> - General Chief Complaint: Psychiatric Symptoms Stated Complaint: MH Eval Time Seen by Provider: 04/11/25 18:23 - History of Present Illness Initial Comments: Quick note: 35-year-old female presented the ER for evaluation of SI. Patient states she is currently "at a high with her mental health". She denies any plans. Denies HI or hallucinations. No drug or alcohol use. (Janice Hills) This is a 35-year-old female who presents to the emergency department stating she has a past medical history of PTSD bipolar manic depressive and anxiety. Patient states lately she has been on a high and feeling really good but over the last few days she has been very depressed and feeling suicidal. Patient states she wants to come in because she is afraid she may attempt suicide. Patient states she was here few days ago and did not get admitted but the symptoms continued so she wants to be reevaluated. Patient denies any physical complaints today. (Cisco Griffith) - Related Data Home Medications Medication Instructions Recorded Confirmed Levonorgestrel/Ethin.estradiol 1 tab PO DAILY 02/27/25 03/29/25 [Lutera-28 Tablet] Previous Rx's Medication Instructions Recorded Nicotine Gum (Polacrilex) 2 mg BUCCAL Q4HR PRN pieceofgum 03/02/25 [Nicorette] PARoxetine HCL [Paxil] 30 mg PO DAILY 30 Days #30 tab 03/02/25 Pantoprazole [Protonix] 40 mg PO AC-BRKFST 30 Days #30 tab 03/02/25 ARIPiprazole [Abilify] 20 mg PO DAILY 30 Days #30 tab 03/06/25 Allergies Allergy/AdvReac Type Severity Reaction Status Date / Time No Known Allergies Allergy Verified 04/09/25 13:02 Review of Systems ROS Other: All systems not noted in ROS Statement are negative. <Janice Hills - Last Filed: 04/11/25 18:23> ROS Other: All systems not noted in ROS Statement are negative. <Cisco Griffith - Last Filed: 04/11/25 20:59> ROS Other: All systems not noted in ROS Statement are negative. <Neto Doss - Last Filed: 04/11/25 23:17> ROS Statement: Those systems with pertinent positive or pertinent negative responses have been documented in the HPI. Past Medical History Past Medical History: Asthma History of Any Multi-Drug Resistant Organisms: None Reported Past Surgical History: No Surgical Hx Reported Past Anesthesia/Blood Transfusion Reactions: No Reported Reaction Past Psychological History: Anxiety, Bipolar, Depression, PTSD Smoking Status: Current every day smoker, Vaper Past Alcohol Use History: Occasional Past Drug Use History: Marijuana - Past Family History Mother Family Medical History: No Reported History Additional Family Medical History / Comment(s): Hx of depression, committed suicide Father Family Medical History: No Reported History Additional Family Medical History / Comment(s): Hx of depression, committed suicide <Janice Hills - Last Filed: 04/11/25 18:23> General Exam Limitations: no limitations <Janice Hills - Last Filed: 04/11/25 18:23> <Cisco Griffith - Last Filed: 04/11/25 20:59> - General Exam Comments Initial Comments: Visual Physical Exam Vital signs reviewed General: Well-appearing, nontoxic, no acute distress. Head: Normocephalic, atraumatic Eyes: PERRLA, EOMI ENT: Airway patent Chest: Nonlabored breathing Skin: No visual rash, normal skin tone Neuro: Alert and oriented 3 Musculoskeletal: No gross abnormalities (Janice Hills) GENERAL: Patient is well-developed and well-nourished. Patient is nontoxic and well- hydrated and is in mild distress. ENT: Neck is soft and supple. No significant lymphadenopathy is noted. Oropharynx is clear. Moist mucous membranes. Neck has full range of motion without eliciting any pain. EYES: The sclera were anicteric and conjunctiva were pink and moist. Extraocular movements were intact and pupils were equal round and reactive to light. Eyelids were unremarkable. PULMONARY: Unlabored respirations. Good breath sounds bilaterally. No audible rales rhonchi or wheezing was noted. CARDIOVASCULAR: There is a regular rate and rhythm without any murmurs gallops or rubs. ABDOMEN: Soft and nontender with normal bowel sounds. SKIN: Skin is clear with no lesions or rashes and otherwise unremarkable. NEUROLOGIC: Patient is alert and oriented x3. Cranial nerves II through XII are grossly intact. Motor and sensory are also intact. Normal speech, volume and content. Symmetrical smile. MUSCULOSKELETAL: Normal extremities with adequate strength and full range of motion. LYMPHATICS: No significant lymphadenopathy is noted PSYCHIATRIC: Patient states lately she has been on the hide but the last few days she has been very depressed and feeling suicidal. (Cisco Griffith) Course Vital Signs 04/11/25 18:11 Temperature 98.3 F Pulse Rate 99 Respiratory 20 Rate Blood Pressure 126/83 O2 Sat by Pulse 100 Oximetry Medical Decision Making <Janice Hills - Last Filed: 04/11/25 18:23> <Cisco Griffith - Last Filed: 04/11/25 20:59> <Neto Doss - Last Filed: 04/11/25 23:17> - Medical Decision Making I performed the quick note portion of this chart. Electronically signed by Janice Hills PA-C (Janice Hills) Was pt. sent in by a medical professional or institution ([facility], [facility], urgent care, hospital, or penitentiary...) When possible be specific @ -Macro Did you speak to anyone other than the patient for history (EMS, parent, family, police, friend...)? What history was obtained from this source @ -No Did you review nursing and triage notes (agree or disagree)? Why? @ -I reviewed and agree with nursing and triage notes Were old charts reviewed (outside hosp., previous admission, EMS record, old EKG, old radiological studies, urgent care reports/EKG's, penitentiary records)? Report findings @ -No old charts were reviewed Differential Diagnosis? @ -Differential Mental Health Depression, anxiety, bipolar, psychosis, schizophrenia, borderline personality, situational depression, adjustment disorder, behavioral disorder, brain tumor, malingering, substance abuse, encephalopathy, medication reaction, dementia, hypothyroidism, degenerative neurologic disorder, lupus.... This is not meant to be all-inclusive list EKG interpreted by me (3pts min.). @ -As above X-rays interpreted by me (1pt min.). @ -None done CT interpreted by me (1pt min.). @ -None done U/S interpreted by me (1pt. min.). @ -None done What testing was considered but not performed or refused? (CT, X-rays, U/S, labs)? Why? @ -None What meds were considered but not given or refused? Why? @ -None Did you discuss the management of the patient with other professionals (professionals i.e. , PA, GLASSWARE VERIFIER, lab, RT, psych nurse, social service technician, loadmaster, teacher, soil science technical officer, nurse outreach case manager)? Give summary @ -EPS evaluated the patient and spoke with psychiatry Was smoking cessation discussed for >3mins.? @ -No Was critical care preformed (if so, how long)? @ -No Were there social determinants of health that impacted care today? How? (Homelessness, low income, unemployed, alcoholism, drug addiction, transportation, low edu. Level, literacy, decrease access to med. care, fdc, rehab)? @ -No Was there de-escalation of care discussed even if they declined (Discuss DNR or withdrawal of care, Hospice)? DNR status @ -No What co-morbidities impacted this encounter? (DM, HTN, Smoking, COPD, CAD, Cancer, CVA, ARF, Chemo, Hep., AIDS, mental health diagnosis, sleep apnea, morbid obesity)? @ -None Was patient admitted / discharged? Hospital course, mention meds given and route, prescriptions, significant lab abnormalities, going to OR and other pertinent info. @ -Patient was evaluated by EPS and they determined the patient will be sent home with a safety plan. Undiagnosed new problem with uncertain prognosis? @ -No Drug Therapy requiring intensive monitoring for toxicity (Heparin, Nitro, Insulin, Cardizem)? @ -No Were any procedures done? @ -No Diagnosis/symptom? @ -Bipolar Acute, or Chronic, or Acute on Chronic? @ -Acute on chronic Uncomplicated (without systemic symptoms) or Complicated (systemic symptoms)? @ -Complicated Side effects of treatment? @ -No Exacerbation, Progression, or Severe Exacerbation? @ -No Poses a threat to life or bodily function? How? (Chest pain, USA, MT, pneumonia, PE, COPD, DKA, ARF, appy, cholecystitis, CVA, Diverticulitis, Homicidal, Suicidal, threat to staff... and all critical care pts) @ -No (Cisco Griffith) The patient was seen and evaluated by EPS, and initially was going to go home with safety plan and then the patient reportedly made additional statements indicating suicidal ideation. In light of this, the patient is going to be admitted (Neto Doss) Disposition <Janice Hills - Last Filed: 04/11/25 18:23> Is patient prescribed a controlled substance at d/c from ED?: No Time of Disposition: 20:59 <Cisco Griffith - Last Filed: 04/11/25 20:59> Is patient prescribed a controlled substance at d/c from ED?: No <Neto Doss - Last Filed: 04/11/25 23:17> Clinical Impression: Bipolar disorder, Suicidal ideation Disposition: ADMITTED IP TO THIS HOSP Condition: Good Instructions (If sedation given, give patient instructions): Bipolar Disorder (ED) Referrals: León Drummond MD [Primary Care Provider] - 1-2 days
[2025-04-11 23:30] LABS: Influenza A Not Detected (Not Detectd); Influenza B Not Detected (Not Detectd); RSV Not Detected (Not Detectd)
[2025-04-12] MEDS ORDERED: OLANZapine 10 MG VIAL IM PRN (02:30)
[2025-04-12] MEDS ORDERED: MAGNESIUM HYDROXIDE 2,400 MG/30 ML CUP PO PRN (02:30)
[2025-04-12] MEDS ORDERED: OLANZapine 10 MG TAB PO PRN (02:30)
[2025-04-12] MEDS ORDERED: MAG HYDROX/AL HYDROX/SIMETH 355 ML BOTTLE PO PRN (02:30)
[2025-04-12] MEDS ORDERED: IBUPROFEN 600 MG TAB PO PRN (02:30)
[2025-04-12] MEDS ORDERED: hydrOXYzine HCL 25 MG TAB PO PRN (02:30)
[2025-04-12] MEDS ORDERED: hydrOXYzine HCL 50 MG/ML 1 ML VIAL IM PRN (02:30)
[2025-04-12] MEDS: PARoxetine 10 MG TAB PO SCH (08:18)
[2025-04-12] MEDS: NICOTINE 14MG/24HR PATCH TRANSDERM SCH (08:19)
[2025-04-12] MEDS: NICOTINE GUM (POLACRILEX) 2 MG GUM BUCCAL PRN (13:35)
--- NOTE | 2025-04-12 13:35 | P.HP ---
Psychiatric H&P - . H&P Date: 04/12/25 History & Physical: Allergies Allergy/AdvReac Type Severity Reaction Status Date / Time No Known Allergies Allergy Verified 04/09/25 13:02 Vital Signs Temp 98.1 F 04/12/25 09:00 Pulse 102 H 04/12/25 09:00 Resp 16 04/12/25 09:00 BP 135/88 04/12/25 09:00 Pulse Ox 98 04/12/25 09:00 FiO2 Intake & Output 04/11/25 04/12/25 04/12/25 18:59 06:59 18:59 Weight 131.542 kg 97.5 kg Laboratory Last Values Influenza Type A (PCR) Not Detected (Not Detectd) 04/11/25 22:38 Influenza Type B (PCR) Not Detected (Not Detectd) 04/11/25 22:38 RSV (PCR) Not Detected (Not Detectd) 04/11/25 22:38 SARS-CoV-2 (PCR) Not Detected (Not Detectd) 04/11/25 22:38 04/12/25 13:26 IDENTIFYING DATA: Patient is a 35-year-old female, homeless, unemployed CHIEF COMPLAINT: SI HPI: Patient presented to the hospital with suicidal ideations. Per EPS, "Patient presented to ER related to suicidal ideation. Patient assessed in ER13 from [id number]. Patient states "I was recently on a high and now I feel like I am going low". Patient describes that she had been feeling "the happiest i've ever been". States not she has been feeling suicidal but denies any plan or intent to hurt self. Patient states that she has been homeless for a couple of weeks, has no income, and no family or other supports. Patient states she has been feeling down and depressed. Patient observed with organized thought process. Presented as calm and cooperative. Patient observed to be neat and clean with good appearance. Patient denies hallucinations and paranoia. Patient vebralizes attending her [facility] appointments and taking all her medications as prescribed. Patient verbalizes occasional alcohol use but increased use over the last couple weeks. Describes drinking about a 6 pack 2-3/week. Patient verbalizes daily marijuana use. States smokes cigarettes 1ppd since age 16. Per [facility], patient was seen 03/16/2025 and no changes to PO medications at the time. Patient plan was to start Abilify maintenna, but according to [facility] did not receive SILVESTRE. Safety plan completed with patient without incident, received call from Tejinder on [facility] whom was informed by ER that patient was making suicidal statments. Per ER, patient had started expressing that she was going to leave the ER and kill herself with plan and intention to hang herself. Patient states "when I tonight it is on you guys for not caring about me"." Patient seen and evaluated on the unit and was agreeable with speaking to business writer in office. She states being homeless upon discharge from the hospital in February, stating that her ex kicked her out and she has been living on the streets and with friends. Specifically, she states meeting one of her friends on the cab ride home upon discharge during the last admission and states that things were going pretty well with them until she was intimate with a friend of this individual and things ended after that. She states homelessness is the predominant stressor right now, stating she has been adherent with her psychotropic medications and find them helpful. She states not receiving the SILVESTRE at her most recent [facility] appointment because the nurse was not in. She states her [id number] is planning on coming to [place] over the weekend with plans of transferring her up north so that she can stay with relatives there with the ultimate goal of spreading her mom's ashes in the river. She denies any sleep or appetite difficulties, anhedonia, low energy. Patient denies any suicidal or homicidal ideations intent or plan. At this time patient denies any auditory or visual hallucinations. Patient denies any flight of ideas racing thoughts and increased in goal directed behavior. Patient admits to using cannabis, nicotine and occasional alcohol. PAST PSYCHIATRIC HISTORY: Patient has a history of bipolar disorder. Patient is currently on Paxil 30 mg daily, Abilify 20 mg daily. Patient reports 5 previous inpatient hospitalizations, last at this facility in February 2025. Patient follows with [facility]. Patient reports 3 previous suicide attempts, last in 2023. PMH: as per ER note ALLERGIES: as per EMR SUBSTANCE USE HISTORY: As per HPI FAMILY PSYCHIATRIC/SUBSTANCE USE HISTORY: Both the patient's parents have completed suicide, her siblings suffer from both mental illness and substance use disorder SOCIAL HISTORY: Patient was born and raised in [place]. She is single, has no children and is homeless. She completed her GED however is currently unemployed. MENTAL STATUS EXAM: General Appearance: Patient appears to be stated age is alert, directable, and attempts to cooperate. Patient appears to have fair hygiene and grooming. Behavior: Patient is seated without any agitated behavior. Speech: Patient's speech is fluent and nonpressured. Mood/Affect: Patient reports their mood is depressed, affect is congruent and constricted. Suicidality/Homicidality: Patient denies having any homicidal ideation intent or plan. Denies any suicidal ideations intent or plan Perceptions: Patient denies any visual hallucinations and denies any auditory hallucinations Though content/process: There is no evidence of any delusional thought content and thought process is linear and goal-directed. Memory and concentration: AOX3, grossly intact for the purposes of this session. Can spell "WORLD" backwards Judgment and insight: Fair STRENGTHS/WEAKNESSES: strength is that patient is resilient. Weakness is that patient has poor judgment and is impulsive INTELLECT: Average IMPRESSIONS: Bipolar 1 disorder, most recent episode manic with psychotic features Cannabis use disorder Nicotine dependence PLAN: -Patient is admitted under voluntary status to [facility] for stabilization of psychiatric symptoms and safety. Patient has signed adult voluntary form and and is placed in patient's chart. -Medications : Patient to receive Abilify maintena 400 mg IM today, continue Abilify 20 mg daily for 2 more weeks then discontinue, Paxil 30 mg daily for depression - Hydroxyzine and Zyprexa PRN for agitation/aggression -Patient was counselled on substance abuse and desired to cut back on use -Patient was informed of the risks, benefits and side effects of the medication and patient verbally consented to taking the medications. Patient signed med consent form and was placed in chart. Patient offered and declined patient education sheet for psychotropic medications. -Internal Medicine consult to perform medical evaluation and physical. -NRT -nicotine patch -SW on board for discharge planning. Encourage patient to participate in groups to work on coping skills. Anticipate discharge in 1-2 days, patient states she would likely obtain transportation to go up [place] if not then will explore shelters in the area
[2025-04-12] MEDS: ARIPiprazole IM SYRINGE 400 MG (NO CHARGE) PHARMACY STOCK IM ONE (14:42)
[2025-04-13] MEDS ORDERED: ALBUTEROL INHALER 60 PUFF/8 GM INHALER (MHU) INHALATION PRN (10:16)
--- NOTE | 2025-04-13 10:17 | P.MDCNMH ---
History of Present Illness H&P Date: 04/12/25 This is a 35-year-old female who presented to the emergency department with increasing depression and suicidal thoughts coming in for psychiatric evaluation. Patient reports follows with Dr. Drummond in the outpatient setting with a past medical history of bipolar/PTSD/manic depression and anxiety along with asthma, vapes and uses occasional marijuana and also noted to have obesity. Patient denies alcohol use. Patient reports was not petitioned and voluntarily admitted to [facility] for further psychiatric evaluation and necessary adjustments to medications if needed. Patient denies any chest pain or shortness of breath on exam and reports has not used an inhaler in years. Basic labs ordered and remain pending at this time and patient did have Cepheid testing including influenza RSV and COVID which were all negative. Patient appears medically stable on exam. Patient instructed to be compliant with medications and psychiatric evaluation along with attending group therapy sessions. REVIEW OF SYSTEMS: CONSTITUTIONAL: No fever, no malaise, reports of occasional fatigue. HEENT: No recent visual problems or hearing problems. Denied any sore throat. CARDIOVASCULAR: No chest pain, orthopnea, PND, no palpitations, no syncope. PULMONARY: No shortness of breath, no cough, no hemoptysis. GASTROINTESTINAL: No diarrhea, no nausea, no vomiting, no abdominal pain. NEUROLOGICAL: No headaches, no weakness, no numbness. HEMATOLOGICAL: Denies any bleeding or petechiae. GENITOURINARY: Denies any burning micturition, frequency, or urgency. MUSCULOSKELETAL/RHEUMATOLOGICAL: Denies any joint pain, swelling, or any muscle pain. ENDOCRINE: Denies any polyuria or polydipsia. The rest of the 14-point review of systems is negative. PHYSICAL EXAMINATION: GENERAL: The patient is alert and oriented x3, not in any acute distress. Well developed, well nourished. Obese HEENT: Pupils are round and equally reacting to light. EOMI. No scleral icterus. No conjunctival pallor. Normocephalic, atraumatic. No pharyngeal erythema. No thyromegaly. CARDIOVASCULAR: S1 and S2 muffled PULMONARY: Chest is clear to auscultation, no wheezing or crackles. ABDOMEN: Soft, obese, nontender, nondistended, normoactive bowel sounds. No palpable organomegaly. MUSCULOSKELETAL: No joint swelling or deformity. EXTREMITIES: No cyanosis, clubbing, or pedal edema. NEUROLOGICAL: Gross neurological examination did not reveal any focal deficits. SKIN: No rashes. Assessment: Increased depression with suicidal ideation History of bipolar depression/PTSD/ manic, anxiety History of asthma, not in exacerbation Vaping Obesity with a BMI 38.1 Occasional THC use GI prophylaxis Full code Plan: Patient voluntarily admitted to [facility] for further psychiatric evaluation. Patient reports she has been on a high feeling extremely well doing well although most recently the last couple of days she has been feeling increasing depression and suicidal ideation and came here for further psychiatric evaluation. Recommend basic labs including CMP, CBC, TSH, T3, T4 free Home medications reviewed and resumed as appropriate Recommend as needed inhaler as patient has history of asthma although not in exacerbation and reports she has not much at all Recommend tobacco cessation and THC cessation Recommend outpatient follow-up with primary care provider along with [facility] once cleared by psychiatry Thank you kindly for this consultation. Please do not hesitate to contact us with further questions and concerns The impression and plan of care has been dictated by Sunita Hubbard, Nurse Practitioner as directed. Dr. Jayleen MD I have performed a history and examination and MDM of this patient, discussed the same with the dictator, and agree with the dictator's assessment and plan as written ,documented as a scribe. Based on total visit time, I have performed more than 50% of the visit. Past Medical History Past Medical History: Asthma History of Any Multi-Drug Resistant Organisms: None Reported Past Surgical History: No Surgical Hx Reported Past Anesthesia/Blood Transfusion Reactions: No Reported Reaction Past Psychological History: Anxiety, Bipolar, Depression, PTSD Smoking Status: Current every day smoker Past Alcohol Use History: Occasional Past Drug Use History: Marijuana - Past Family History Mother Family Medical History: No Reported History Additional Family Medical History / Comment(s): Hx of depression, committed suicide Father Family Medical History: No Reported History Additional Family Medical History / Comment(s): Hx of depression, committed suicide Medications and Allergies Home Medications Medication Instructions Recorded Confirmed Type Levonorgestrel/Ethin.estradiol 1 tab PO DAILY 02/27/25 04/12/25 History [Lutera-28 Tablet] Nicotine Gum (Polacrilex) 2 mg BUCCAL Q4HR PRN pieceofgum 03/02/25 04/12/25 Rx [Nicorette] PARoxetine HCL [Paxil] 30 mg PO DAILY 30 Days #30 tab 03/02/25 04/12/25 Rx Pantoprazole [Protonix] 40 mg PO AC-BRKFST 30 Days #30 tab 03/02/25 04/12/25 Rx ARIPiprazole [Abilify] 20 mg PO DAILY 30 Days #30 tab 03/06/25 04/12/25 Rx ARIPiprazole [Abilify Maintena] 400 mg IM DIRECTED 04/12/25 04/12/25 History Allergies Allergy/AdvReac Type Severity Reaction Status Date / Time No Known Allergies Allergy Verified 04/12/25 16:12 Physical Exam Vitals: Vital Signs Temp Pulse Pulse Resp BP BP Pulse Ox 04/12/25 01:32 97.5 F L 104 H 18 105/78 97 04/12/25 01:25 99.0 F 101 H 16 122/78 99 04/11/25 18:11 98.3 F 99 20 126/83 100 Intake and Output 04/11/25 04/12/25 04/12/25 22:59 06:59 14:59 Other: Weight 131.542 kg 97.5 kg Cranial Nerve Examination - Cranial Nerves Cranial Nerve I- Olfactory: Intact Cranial Nerve II- Optic: Intact Cranial Nerve III- Oculomotor: Intact Cranial Nerve IV- Trochlear: Intact Cranial Nerve V- Trigeminal: Intact Cranial Nerve - Abducens: Intact Cranial Nerve VII- Facial: Intact Cranial Nerve VIII- Auditory: Intact Cranial Nerve IX- Glossopharyngeal: Intact Cranial Nerve X- Vagus: Intact Cranial Nerve XI- Accessory: Intact Cranial Nerve XII- Hypoglossal: Intact
[2025-04-13 10:40] LABS: Basophils # (A) 0.09 10*3/uL (0.00-0.10); Basophils % (A) 0.7 %; Eosinophils % (A) 0.8 %; HGB 14.3 g/dL (12.0-15.0); Lymphocytes % (A) 15.1 %; MCH 30.2 pg (27.0-32.0); MCHC 32.5 g/dL (32.0-37.0); Mean Platelet Volume 10.1 fL (9.5-12.2); Monocytes # (A) 1.22 10*3/uL (0.20-1.00); Monocytes % (A) 9.7 %; Neutrophils # (A) 9.13 10*3/uL (1.80-7.70); Neutrophils % (A) 72.3 %; Platelet Count 255 10*3/uL (140-440); RBC 4.73 10*6/uL (4.10-5.20); RDW 13.2 % (11.5-14.5); WBC 12.62 10*3/uL (4.50-10.00)
[2025-04-13] MEDS: PANTOPRAZOLE 40 MG TABLET PO SCH (10:51)
[2025-04-13 11:38] LABS: ALT 22 U/L (4-34); AST 25 U/L (14-36); African American GFR (CKD) >90 (>60 ml/min/1.73 sqM); Alkaline Phosphatase 89 U/L (38-126); Anion Gap 6 mmol/L; Blood Urea Nitrogen 20 mg/dL (7-17); Calcium 9.5 mg/dL (8.4-10.2); Carbon Dioxide 26 mmol/L (22-30); Chloride 108 mmol/L (98-107); Glucose 102 mg/dL (74-99); Magnesium 2.1 mg/dL (1.6-2.3); Non-African American GFR(CKD) >90 (>60 ml/min/1.73 sqM); Potassium 4.3 mmol/L (3.5-5.1); Sodium 140 mmol/L (137-145); Total Bilirubin 0.3 mg/dL (0.2-1.3); Total Protein 6.9 g/dL (6.3-8.2)
--- NOTE | 2025-04-13 12:26 | P.PN ---
Progress Note - Text Progress Note Date: 04/13/25 Interval History: Patient was seen wandering the hallways and was directable and agreeable to jeanne low with publications writer in the office. She tolerated the Abilify SILVESTRE yesterday, only reported arm soreness. She reports stability in her symptoms, sleeping and eating well. She has not been able to contact her [id number] to see if she is able to pick her up when she is in town and [place] her family [place] so that she can spread her mother's ashes. Patient did have a sticky note with several numbers down to which she states she will call them over the weekend to figure out if she is able to stay with them. At this time patient denies any suicidal or homicidal ideations, intent or plan. Patient denies any auditory, visual hallucinations and denies any paranoia or delusions. Patient denies any side effects from the medications and has been compliant with meds. Mental Status Exam: General Appearance: Patient appears to be stated age is alert, directable, and cooperative. She wears glasses, has fair grooming and hygiene Behavior: Patient is calmly seated without any agitated behavior. Speech: Patient's speech is fluent and nonpressured. Mood/Affect: Mood is improving mildly, affect is congruent and blunted. Suicidality/Homicidality: Patient denies having any suicidal or homicidal ideation intent or plan. Perceptions: Patient denies any visual hallucinations and denies any auditory hallucinations Though content/process: There is no evidence of any delusional thought content and thought process is linear and goal-directed. Memory and concentration: AOX3, grossly intact for the purposes of this session Judgment and insight: Improving mildly Assessment Bipolar 1 disorder, most recent episode manic with psychotic features Cannabis use disorder Nicotine dependence Plan: -Patient continues to meet criteria for inpatient psychiatric admission for symptom stabilization and safety. Patient has signed adult voluntary form and medication consent and was placed in patient's chart. -Medications: Abilify maintena 400 mg IM every 4 weeks given yesterday, continue Abilify 20 mg daily for 2 more weeks then discontinue, Paxil 30 mg daily for depression -When necessary oxazine and Zyprexa for agitation/aggression. -Labs: WBC mildly elevated otherwise grossly WNL -NRT - nicotine patch -SW on board for discharge planning. Encouraged the patient to participate in milieu. Anticipate discharge on Wednesday, either to [facility] versus friend/family
[2025-04-13 12:37] LABS: T4, Free (Free Thyroxine) 1.32 ng/dL (0.78-2.19)
[2025-04-13] MEDS: ACETAMINOPHEN TAB 325 MG TAB PO PRN (20:42)
--- NOTE | 2025-04-14 16:20 | P.PN ---
Subjective Progress Note Date: 04/14/25 Principal diagnosis: Patient was sleeping in her room for an afternoon and was directable and agreeable to speak with personal lines underwriter in the office. She seems serious but was cooperative. She tolerated the Abilify SILVESTRE yesterday, only reported arm soreness. She has no report of restlessness. She reports stability in her symptoms, sleeping and eating well. At this time patient denies any suicidal or homicidal ideations, intent or plan. Patient denies any auditory, visual hallucinations and denies any paranoia or delusions. Patient denies any side effects from the medications and has been compliant with meds. Her only physical complaint was that she puts the Nicorette gum in her mouth she was away and along before the 4 hours is up she is back into withdrawal. I explained ca refully how to use it properly and I will go down to every 2 hours. She is very open about the fact of her illness and the need for medications Mental Status Exam: No signs of akathisia General Appearance: Patient appears to be stated age is alert, directable, and cooperative. She wears glasses, has fair grooming and hygiene Behavior: Patient is calmly seated without any agitated behavior. Speech: Patient's speech is fluent and nonpressured. Mood/Affect: Mood is improving mildly, affect is serious Suicidality/Homicidality: Patient denies having any suicidal or homicidal ideation intent or plan. Perceptions: Patient denies any visual hallucinations and denies any auditory hallucinations Though content/process: There is no evidence of any delusional thought content and thought process is linear and goal-directed. Memory and concentration: AOX3, grossly intact for the purposes of this session Judgment and insight: Improving mildly Assessment Bipolar 1 disorder, most recent episode manic with psychotic features Cannabis use disorder Nicotine dependence Plan: -Patient continues to meet criteria for inpatient psychiatric admission for symptom stabilization and safety. Patient has signed adult voluntary form and medication consent and was placed in patient's chart. -Medications: Abilify maintena 400 mg IM every 4 weeks given yesterday, continue Abilify 20 mg daily for 2 more weeks then discontinue, Paxil 30 mg daily for depression -When necessary oxazine and Zyprexa for agitation/aggression. -Labs: WBC mildly elevated otherwise grossly WNL -NRT - nicotine patch -SW on board for discharge planning. Encouraged the patient to participate in milieu. Anticipate discharge on Wednesday, either to penitentiary versus friend/family Patient was sleeping in her bed but was agreeable to speak with personal lines underwriter in the office. She tolerated the Abilify SILVESTRE yesterday, only reported arm soreness. She denies any akathisia or other side effects. She reports stability in her symptoms, sleeping and eating well. Her main complaint is that when she just she was aware that her Nicorette gum gives her a bit of a headache and nausea and then it quits so I instructed her on how to use it properly. At this time patient denies any suicidal or homicidal ideations, intent or plan. Patient denies any auditory, visual hallucinations and denies any paranoia or delusions. Patient denies any side effects from the medications and has been compliant with meds. She is very open about the fact of her bipolar and seems to be tolerating the Abilify well Mental Status Exam: General Appearance: Patient appears to be stated age is alert, directable, and cooperative. She wears glasses, has fair grooming and hygiene Behavior: Patient is calmly seated without any agitated behavior. Speech: Patient's speech is fluent and nonpressured. Mood/Affect: Mood is improving mildly, affect is congruent and blunted. Suicidality/Homicidality: Patient denies having any suicidal or homicidal ideation intent or plan. Perceptions: Patient denies any visual hallucinations and denies any auditory hallucinations Though content/process: There is no evidence of any delusional thought content and thought process is linear and goal-directed. Memory and concentration: AOX3, grossly intact for the purposes of this session Judgment and insight: Improving mildly Assessment Bipolar 1 disorder, most recent episode manic with psychotic features Cannabis use disorder Nicotine dependence Plan: No changes in medication indicated at this time -Patient continues to meet criteria for inpatient psychiatric admission for symptom stabilization and safety. Patient has signed adult voluntary form and medication consent and was placed in patient's chart. -Medications: Abilify maintena 400 mg IM every 4 weeks given yesterday, continue Abilify 20 mg daily for 2 more weeks then discontinue, Paxil 30 mg daily for dep ression -When necessary oxazine and Zyprexa for agitation/aggression. -Labs: WBC mildly elevated otherwise grossly WNL -NRT - nicotine patch -SW on board for discharge planning. Encouraged the patient to participate in milieu. Anticipate discharge on Wednesday, either to penitentiary versus friend/family Objective - Vital Signs Vital signs: Vital Signs Temp 97.8 F 04/14/25 08:02 Pulse 95 04/14/25 08:02 Resp 16 04/14/25 08:02 BP 110/72 04/14/25 08:02 Pulse Ox 95 04/14/25 08:02 FiO2 - Labs CBC & Chem 7: 04/13/25 10:19 04/13/25 10:19
[2025-04-14] MEDS: NICOTINE GUM (POLACRILEX) 2 MG GUM BUCCAL PRN (19:10)
[2025-04-15 09:02] LABS: Appearance,Urine Cloudy (Clear); Bacteria,Urine Rare /hpf; Bilirubin,Urine Negative (Negative); Blood,Urine Negative (Negative); Color,Urine Light Yellow; Glucose,Urine (UA) Negative (Negative); Ketones,Urine Negative (Negative); Leukocyte Esterase,Urine Negative (Negative); Mucus,Urine Few /hpf; Nitrite,Urine Negative (Negative); PH, Urine 6.5 (5.0-8.0); Protein,Urine Negative (Negative); RBC,Urine 1 /hpf (0-5); Specific Gravity,Urine 1.018 (1.001-1.035); Squamous Epithelial Cell,Urine 39 /hpf (0-4); Urobilinogen,Urine <2.0 mg/dL (<2.0); WBC,Urine 3 /hpf (0-5)
[2025-04-15 09:23] LABS: Amphetamine Screen,Urine Not Detected (NotDetected); Barbiturate Screen,Urine Not Detected (NotDetected); Benzodiazepines Screen,Urine Not Detected (NotDetected); Cocaine Screen,Urine Not Detected (NotDetected); Methadone Screen, Urine Not Detected (NotDetected); Opiate Screen,Urine Not Detected (NotDetected); Oxycodone Screen, Urine Not Detected (NotDetected); Phencyclidine Screen,Urine Not Detected (NotDetected); Tricyclic Antidepressant,Urine Not Detected (NotDetected); Urn Cannabinoid Scrn Detected (NotDetected)
--- NOTE | 2025-04-15 11:15 | P.PN ---
Subjective Progress Note Date: 04/15/25 Principal diagnosis: Assessment Bipolar 1 disorder, most recent episode manic with psychotic features Cannabis use disorder Nicotine dependence Patient was sleeping in her bed but was agreeable to speak with ghost writer in the office. She said, "I am much to talk about today I am doing fine". She tolerated the Abilify SILVESTRE, only reported arm soreness. She denies any akathisia or other side effects. She reports stability in her symptoms, sleeping and eating well. Her main complaint is that when she just she was aware that her Nicorette gum gives her a bit of a headache and nausea and then it quits so I instructed her on how to use it properly. At this time patient denies any suicidal or homicidal ideations, intent or plan. Patient denies any auditory, visual hallucinations and denies any paranoia or delusions. Patient denies any side effects from the medications and has been compliant with meds. She is very open about the fact of her bipolar and seems to be tolerating the Abilify well Mental Status Exam: Pleasant and cooperative good eye contact General Appearance: Patient appears to be stated age is alert, directable, and cooperative. She wears glasses, has fair grooming and hygiene Behavior: Patient is calmly seated without any agitated behavior. Speech: Patient's speech is fluent and nonpressured. Mood/Affect: Mood is improving mildly, affect is congruent and blunted. Suicidality/Homicidality: Patient denies having any suicidal or homicidal ideat ion intent or plan. Perceptions: Patient denies any visual hallucinations and denies any auditory h allucinations Though content/process: There is no evidence of any delusional thought content and thought process is linear and goal-directed. Memory and concentration: AOX3, grossly intact for the purposes of this session Judgment and insight: Improving mildly Assessment Bipolar 1 disorder, most recent episode manic with psychotic features Cannabis use disorder Nicotine dependence Plan: No changes in medication indicated at this time -Patient continues to meet criteria for inpatient psychiatric admission for symptom stabilization and safety. Patient has signed adult voluntary form and medication consent and was placed in patient's chart. -Medications: Abilify maintena 400 mg IM every 4 weeks given yesterday, continue Abilify 20 mg daily for 2 more weeks then discontinue, Paxil 30 mg daily for depression -When necessary oxazine and Zyprexa for agitation/aggression. -Labs: WBC mildly elevated otherwise grossly WNL -NRT - nicotine patch -SW on board for discharge planning. Encouraged the patient to participate in milieu. Anticipate discharge on Wednesday, either to [facility] versus friend/family Objective - Vital Signs Vital signs: Vital Signs Temp 97.8 F 04/15/25 08:28 Pulse 96 04/15/25 08:28 Resp 16 04/15/25 08:28 BP 91/60 04/15/25 08:28 Pulse Ox 100 04/15/25 08:28 FiO2 - Labs CBC & Chem 7: 04/13/25 10:19 04/13/25 10:19 Labs: Abnormal Lab Results - Last 24 Hours (Table) 04/15/25 04/15/25 Range/Units 08:16 08:16 Urine Appearance Cloudy H (Clear) Ur Squamous Epith Cells 39 H (0-4) /hpf Urine Bacteria Rare H (None) /hpf Urine Mucus Few H (None) /hpf U Marijuana (THC) Screen Detected H (NotDetected)
[2025-04-16 11:19] VITALS: BP 124/67; PULSE 99; RESP 18; TEMP 98.2
--- NOTE | 2025-04-16 12:31 | P.DS ---
Providers Date of admission: 04/12/25 01:05 Expected date of discharge: 04/16/25 Attending physician: Ashley Lopez MD Consults: 04/12/25 02:44 Consult Physician Routine Consulting Provider: León Drummond Consult Reason/Comments: Medical managment Do you want consulting provider notified?: Yes, Notify in am Primary care physician: León Drummond MD - Discharge Diagnosis(es) (1) Bipolar 1 disorder Current Visit: Yes Status: Acute Priority: Medium (2) Cannabis use disorder Current Visit: Yes Status: Acute Priority: Low (3) Nicotine dependence Current Visit: Yes Status: Acute Priority: Low Hospital Course: Admission HPI: Admission note was completed by typewriter tester "Patient presented to the hospital with suicidal ideations. Per EPS, "Patient presented to ER related to suicidal ideation. Patient assessed in ER13 from [id number]. Patient states "I was recently on a high and now I feel like I am going low". Patient describes that she had been feeling "the happiest i've ever been". States not she has been feeling suicidal but denies any plan or intent to hurt self. Patient states that she has been homeless for a couple of weeks, has no income, and no family or other supports. Patient states she has been feeling down and depressed. Patient observed with organized thought process. Presented as calm and cooperative. Patient observed to be neat and clean with good appearance. Patient denies hallucinations and paranoia. Patient vebralizes attending her [facility] appointments and taking all her medications as prescribed. Patient verbalizes occasional alcohol use but increased use over the last couple weeks. Describes drinking about a 6 pack 2-3/week. Patient verbalizes daily marijuana use. States smokes cigarettes 1ppd since age 16. Per [facility], patient was seen 03/16/2025 and no changes to PO medications at the time. Patient plan was to start Abilify maintenna, but according to [facility] did not receive SILVESTRE. Safety plan completed with patient without incident, received call from Tejinder on [facility] whom was informed by ER that patient was making suicidal statments. Per ER, patient had started expressing that she was going to leave the ER and kill herself with plan and intention to hang herself. Patient states "when I tonight it is on you guys for not caring about me"." Patient seen and evaluated on the unit and was agreeable with speaking to typewriter tester in office. She states being homeless upon discharge from the hospital in February, stating that her ex kicked her out and she has been living on the streets and with friends. Specifically, she states meeting one of her friends on the cab ride home upon discharge during the last admission and states that things were going pretty well with them until she was intimate with a friend of this individual and things ended after that. She states homelessness is the predominant stressor right now, stating she has been adherent with her psychotropic medications and find them helpful. She states not receiving the SILVESTRE at her most recent [facility] appointment because the nurse was not in. She states her [id number] is glen nning on coming to [place] over the weekend with plans of transferring her up north so that she can stay with relatives there with the ultimate goal of [place]'s [place] the [place]. She denies any sleep or appetite difficulties, anhedonia, low energy. Patient denies any suicidal or homicidal ideations intent or plan. At this time patient denies any auditory or visual hallucinations. Patient denies any flight of ideas racing thoughts and increased in goal directed behavior. Patient admits to using cannabis, nicotine and occasional alcohol." Hospital course: Upon admission to the unit patient was directable and agreeable to commence treatment and signed adult voluntary form.. Patient got along well with other patients on the unit and followed unit protocol. Patient was compliant with the medications and denied any side effects throughout hospital course. Patient was started on Abilify maintenna 400 mg IM every 4 weeks, last given on 04/12/2025 and next due on 05/10/2025. Patient to be continued on oral Abilify 20 mg for 2 weeks then discontinue, continue Paxil 30 mg daily for depression. Patient spoke of her stressors and engaged in therapy both group and individual. Patient was also seen by medical team for history and physical exam. Throughout the course of the hospitalization patient gradually improved with regards to mood, anxiety, sleep and returned back to their baseline level of functioning. On the day of discharge patient denied any suicidal or homicidal ideations intent or plan denied any auditory or visual hallucinations. The patient denied any access to guns or weapons. Patient denied any paranoia and did not endorse any delusions. Patient does not have a significant history of substance abuse and was counseled on abstaining from all substances including alcohol and marijuana. Patient was also counseled on the medications and need for regular compliance and was encouraged to follow-up with their outpatient appointment for mental health and also for primary care. Patient is homeless and will be discharged to senior care and will follow-up with [facility]. Mental status exam: General Appearance: Patient appears to be stated age is alert, pleasant, and cooperative. Patient is in no acute distress and has improved hygiene and grooming Behavior: Patient is calmly seated without any agitated behavior. Speech: Patient's speech is fluent and nonpressured. Mood/Affect: Patient reports their mood is "good", affect is congruent and euthymic. Suicidality/Homicidality: Patient denies having any suicidal or homicidal ideation intent or plan. Perceptions: Patient denies any auditory or visual hallucinations. Though content/process: There is no evidence of any delusional thought content and thought process is linear and goal-directed. More future oriented Memory and concentration: AOX3, grossly intact for the purposes of this session. Can spell "WORLD" backwards correctly. Judgment and insight: Fair Impression: Bipolar 1 disorder, most recent episode manic with psychotic features Cannabis use disorder Nicotine dependence Plan: -Continue with discharge today as patient has improved and stabilized psychiatrically and is not currently an imminent threat to themself and/or others. -Continue medications: Abilify maintena 400 mg IM every 4 weeks last given on 04/12 and next due on 05/10, continue oral Abilify for 2 weeks then discontinue, Paxil 30 mg daily -Patient was counseled on the need for medication compliance and appropriate follow-up at mental health and also primary care for medical issues. Patient verbalized understanding and agreed. -Social work to help coordinate patients discharge today. also to ensure safe home environment that guns/weapons are either removed from the home or locked away. Social work also to arrange for patients follow up appointments with [facility] for psychiatric care along with follow up with primary care provider. -Patient counseled on abstaining from recreational drugs and marijuana and alcohol. Was informed/educated on the adverse effects on their physical and mental health. Patient verbally agreed and understood. -Patient was instructed to return to the hospital or seek immediate medical care if their psychiatric or medical symptoms do worsen or reoccur. Abnormal Labs 04/13/25 04/13/25 04/15/25 10:19 10:19 08:16 WBC 12.62 H Immature Gran # 0.18 H Neutrophils # 9.13 H Monocytes # 1.22 H Chloride 108 H BUN 20 H Glucose 102 H Urine Appearance Cloudy H Ur Squamous Epith Cells 39 H Urine Bacteria Rare H Urine Mucus Few H U Marijuana (THC) Screen 04/15/25 08:16 WBC Immature Gran # Neutrophils # Monocytes # Chloride BUN Glucose Urine Appearance Ur Squamous Epith Cells Urine Bacteria Urine Mucus U Marijuana (THC) Screen Detected H Allergies Allergy/AdvReac Type Severity Reaction Status Date / Time No Known Allergies Allergy Verified 04/12/25 16:12 Vital Signs Temp 98.2 F 04/16/25 11:18 Pulse 99 04/16/25 11:18 Resp 18 04/16/25 11:18 BP 124/67 04/16/25 11:18 Pulse Ox 98 04/16/25 11:18 FiO2 Intake & Output 04/15/25 04/16/25 04/16/25 18:59 06:59 18:59 Weight 97.2 kg Patient Condition at Discharge: Stable Plan - Discharge Summary Discharge Rx Participant: Yes New Discharge Prescriptions: New ARIPiprazole [Abilify] 20 mg PO DAILY 10 Days #10 tab hydrOXYzine HCL [Atarax] 50 mg PO Q6HR PRN 30 Days #60 tab PRN Reason: Anxiety PARoxetine [Paxil] 30 mg PO DAILY 30 Days #90 tab Pantoprazole [Protonix] 40 mg PO AC-BRKFST 30 Days #30 tab Nicotine Gum (Polacrilex) [Nicorette] 2 mg BUCCAL Q2HR PRN 30 Days #90 pieceofgum PRN Reason: Nicotine Cravings Continue Nicotine Gum (Polacrilex) [Nicorette] 2 mg BUCCAL Q4HR PRN pieceofgum PRN Reason: Nicotine Cravings PARoxetine HCL [Paxil] 30 mg PO DAILY 30 Days #30 tab ARIPiprazole [Abilify] 20 mg PO DAILY 30 Days #30 tab ARIPiprazole [Abilify Maintena] 400 mg IM DIRECTED #1 each Discontinued Levonorgestrel/Ethin.estradiol [Lutera-28 Tablet] 1 tab PO DAILY Pantoprazole [Protonix] 40 mg PO AC-BRKFST 30 Days #30 tab Discharge Medication List Nicotine Gum (Polacrilex) [Nicorette] 2 mg BUCCAL Q4HR PRN pieceofgum 03/02/25 [Rx] PARoxetine HCL [Paxil] 30 mg PO DAILY 30 Days #30 tab 03/02/25 [Rx] ARIPiprazole [Abilify] 20 mg PO DAILY 30 Days #30 tab 03/06/25 [Rx] ARIPiprazole [Abilify Maintena] 400 mg IM DIRECTED #1 each 04/16/25 [Rx] ARIPiprazole [Abilify] 20 mg PO DAILY 10 Days #10 tab 04/16/25 [Rx] Nicotine Gum (Polacrilex) [Nicorette] 2 mg BUCCAL Q2HR PRN 30 Days #90 pieceofgum 04/16/25 [Rx] PARoxetine [Paxil] 30 mg PO DAILY 30 Days #90 tab 04/16/25 [Rx] Pantoprazole [Protonix] 40 mg PO AC-BRKFST 30 Days #30 tab 04/16/25 [Rx] hydrOXYzine HCL [Atarax] 50 mg PO Q6HR PRN 30 Days #60 tab 04/16/25 [Rx] Follow up Appointment(s)/Referral(s): [facility] [Outside] - 04/18/25 11:00 am (04/18/2025 11:00AM - 12:00PM JESSICA AMOR 04/23/2025 2:30PM - 3:00PM MAGDALENO MEDINA ) León Drummond MD [Primary Care Provider] - 1-2 days Patient Instructions/Handouts: Bipolar Disorder (ED), Cannabis Abuse (DC) Activity/Diet/Wound Care/Special Instructions: Avoid the use of street drugs and alcohol. Take all medications as prescribed. When you are in need of refills on your medications, please contact your medical provider and/or outpatient psychiatrist/provider to have this done. Please go to your scheduled outpatient appointment for aftercare treatment. If symptoms return or become worse, call the crisis line at and/or go to the nearest emergency room for evaluation. National Suicide Hotline 9[address] [facility] confidentiality statement: "The information contained in this communication, including attachments, is confidential, may be privileged, and is intended only for the use of the named recipient(s). Unauthorized use, disclosure, forwarding or copying is strictly prohibited and may be unlawful. If you have received this communication in error, please notify me IMMEDIATELY at the phone number or pager listed above.
== END 2025-04-16 12:50 | disposition home or self-care (01) | DRG 750 ==
LOC: EC 17:59 → 3MHU 04-12 01:05
PROVIDERS: ADMIT Psychiatry & Neurology Psychiatry; ATTEND Psychiatry & Neurology Psychiatry
DX: F31.2 Bipolar disorder, current episode manic severe with psychotic features (principal); F17.210 Nicotine dependence, cigarettes, uncomplicated; F12.10 Cannabis abuse, uncomplicated; E66.9 Obesity, unspecified; Z68.38 Body mass index [BMI] 38.0-38.9, adult; F43.10 Post-traumatic stress disorder, unspecified; F41.9 Anxiety disorder, unspecified; J45.909 Unspecified asthma, uncomplicated; F17.290 Nicotine dependence, other tobacco product, uncomplicated; R45.851 Suicidal ideations; Z11.52 Encounter for screening for COVID-19; Z56.0 Unemployment, unspecified; Z59.00 Homelessness unspecified; Z79.899 Other long term (current) drug therapy; Z91.51 Personal history of suicidal behavior; Z63.4 Disappearance and death of family member
CPT/HCPCS: 80053; 80306; 81001; 81025; 82075; 83735; 84439; 84443; 85025; 87636; 99285